=== PATIENT | male | born 1980 | race Caucasian/White ===

== ENCOUNTER 2019-06-13 21:15 | Emergency (ER) | payer OTHER ==
--- NOTE | 2019-06-13 21:49 | ED Physician Documentation ---
PD HPI URI - Stated complaint Stated Complaint: COUGH - Chief complaint Chief Complaint: Resp - History obtained from History obtained from: Patient - History of Present Illness Timing - onset: How many weeks ago (1) Timing details: Gradual onset Pain level now: 0 Associated symptoms: Nasal congestion, Dry cough (mostly dry, occasionally productive). No: Fever Recently seen: Not recently seen - Additional information Additional information: c/o 1 week of cough, nasal congestion. denies shortness of breath, fever. daughter is also registered as ED patient with URI sx Review of Systems Constitutional: denies: Fever, Chills, Sweats Nose: reports: Congestion Throat: denies: Sore throat Respiratory: reports: Cough. denies: Dyspnea, Wheezing PD PAST MEDICAL HISTORY - Past Medical History Past Medical History: Yes Cardiovascular: Hypertension, High cholesterol Respiratory: None Neuro: None Endocrine/Autoimmune: None GI: None : None HEENT: None Psych: None Musculoskeletal: None Derm: None - Past Surgical History Past Surgical History: Yes General: Appendectomy Ortho: Other - Present Medications Home Medications: Ambulatory Orders Medication Instructions Recorded Confirmed No Known Home Medications 06/13/19 06/13/19 - Allergies Allergies/Adverse Reactions: Allergies Allergy/AdvReac Type Severity Reaction Status Date / Time Penicillins Allergy Unknown Verified 06/13/19 21:33 - Social History Does the pt smoke?: Yes Smoking Status: Current every day smoker Does the pt drink ETOH?: Yes Does the pt have substance abuse?: No - Immunizations Immunizations are current?: Yes - POLST Patient has POLST: No PD ED PE NORMAL - Vitals Vital signs reviewed: Yes - General General: Alert and oriented X 3, No acute distress, Well developed/nourished - HEENT HEENT: Ears normal, Moist mucous membranes, Pharynx benign - Neck Neck: Supple, no meningeal sign - Cardiac Cardiac: RRR, No murmur - Respiratory Respiratory: No respiratory distress, Clear bilaterally Results - Vitals Vitals: Oxygen O2 Source Room air PD MEDICAL DECISION MAKING - ED course Complexity details: considered differential, d/w patient ED course: NAD, unremarkable exam with sx s/o URI. no emergent testing nor treatment indicated at this time. Departure - Departure Disposition: Home, Self Care Clinical Impression: Upper respiratory tract infection, Sinusitis Condition: Good Instructions: ED Upper Resp Infec No Abx Tx, ED Sinusitis No Abx Discharge Date/Time: 06/13/19 22:32
[2019-06-13 22:26] VITALS: BP 113/63
== END 2019-06-13 22:32 | disposition home or self-care (01) ==
LOC: ED 21:15
DX: J06.9 Acute upper respiratory infection, unspecified (principal); J32.9 Chronic sinusitis, unspecified; I10 Essential (primary) hypertension; F17.200 Nicotine dependence, unspecified, uncomplicated
CPT/HCPCS: 99281; 99284

== ENCOUNTER 2021-05-05 10:00 | Emergency (ER) | payer OTHER ==
[2021-05-05 10:28] LABS: BASOPHILS # (AUTO) 0.1 10^3/uL (0.0-0.1); BASOPHILS % (AUTO) 0.5 %; EOSINOPHILS # (AUTO) 0.3 10^3/uL (0.0-0.7); EOSINOPHILS % (AUTO) 2.8 %; HCT - HEMATOCRIT 41.7 % (42.0-52.0); HGB - HEMOGLOBIN 15.5 g/dL (14.0-18.0); LYMPHOCYTES % (AUTO) 31.1 %; MEAN CORPUSCULAR HGB CONC 37.2 g/dL (32.0-36.0); MEAN CORPUSCULAR VOLUME 88.9 fL (80.0-94.0); MEAN PLATELET VOLUME 10.8 fL (7.4-11.4); MONOCYTES # (AUTO) 0.7 10^3/uL (0.0-1.0); MONOCYTES % (AUTO) 6.7 %; NEUTROPHILS # (AUTO) 5.7 10^3/uL (1.5-6.6); NEUTROPHILS % (AUTO) 58.6 %; PLT - PLATELET COUNT 244 10^3/uL (130-450); RED BLOOD COUNT 4.69 10^6/uL (4.70-6.10); RED CELL DISTRIBUTION WIDTH 12.4 % (12.0-15.0); WHITE BLOOD COUNT 9.7 x10^3/uL (4.8-10.8)
[2021-05-05 10:45] LABS: ALBUMIN 4.1 g/dL (3.2-5.5); ALBUMIN/GLOBULIN RATIO 1.3 (1.0-2.2); BILIRUBIN,TOTAL 0.7 mg/dL (0.2-1.0); CALCIUM 9.2 mg/dL (8.5-10.3); CREATININE 0.7 mg/dL (0.6-1.2); POTASSIUM 3.8 mmol/L (3.5-5.0); TOTAL PROTEIN 7.2 g/dL (6.7-8.2)
[2021-05-05 10:50] LABS: BILIRUBIN,URINE NEGATIVE (NEGATIVE); GLUCOSE, URINE (UA) NEGATIVE (NEGATIVE); KETONES,URINE (UA) NEGATIVE (NEGATIVE); LEUKOCYTE ESTERASE, URINE NEGATIVE (NEGATIVE); NITRITE,URINE NEGATIVE (NEGATIVE); OCCULT BLOOD,URINE NEGATIVE (NEGATIVE); PROTEIN,URINE NEGATIVE (NEGATIVE); UROBILINOGEN,URINE 0.2 (NORMAL) E.U./dL (NORMAL)
[2021-05-05 10:52] LABS: CLARITY,URINE CLEAR (CLEAR)
[2021-05-05] MEDS ORDERED: HYDROmorphone 1 MG/ML CARPUJECT IVP STA ×2 (10:59→12:15)
--- NOTE | 2021-05-05 11:00 | ED Physician Documentation ---
PD HPI ABD PAIN - Stated complaint Stated Complaint: ABD/BACK PX - Chief complaint Chief Complaint: Abd Pain - History obtained from History obtained from: Patient - Additional information Additional information: 40-year-old gentleman with remote appendectomy has had severe epigastric and right upper quadrant pain radiating to the back for the last 2 days. It worsens after he eats. 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 He drinks alcohol but not daily or heavily. Review of Systems Ten Systems: 10 systems reviewed and negative Constitutional: denies: Fever, Chills Cardiac: reports: Reviewed and negative Respiratory: reports: Reviewed and negative PD PAST MEDICAL HISTORY - Past Medical History Cardiovascular: Hypertension, High cholesterol Respiratory: None Neuro: None Endocrine/Autoimmune: None GI: None : None HEENT: None Psych: None Musculoskeletal: None Derm: None - Past Surgical History Past Surgical History: Yes General: Appendectomy Ortho: Other - Present Medications Home Medications: Ambulatory Orders Medication Instructions Recorded Confirmed Oxycodone HCl/Acetaminophen 1 - 2 each PO Q6H PRN #14 tablet 05/05/21 [Percocet 5-325 mg Tablet] hydroCHLOROthiazide [Hydrodiuril] 12.5 mg PO DAILY #30 05/05/21 - Allergies Allergies/Adverse Reactions: Allergies Allergy/AdvReac Type Severity Reaction Status Date / Time Penicillins Allergy Unknown Verified 05/05/21 10:13 - Social History Does the pt smoke?: Yes Smoking Status: Current every day smoker Does the pt drink ETOH?: Yes Does the pt have substance abuse?: No - Immunizations Immunizations are current?: Yes - POLST Patient has POLST: No PD ED PE NORMAL - Vitals Vital signs reviewed: Yes - General General: Alert and oriented X 3, No acute distress - HEENT HEENT: PERRL, EOMI - Neck Neck: Supple, no meningeal sign, No bony TTP - Cardiac Cardiac: RRR, No murmur - Respiratory Respiratory: No respiratory distress, Clear bilaterally - Abdomen Abdomen: Other (Tender focally in the right upper quadrant with positive Graham sign, no other surgical signs.) - Back Back: No CVA TTP, No spinal TTP - Derm Derm: Normal color, Warm and dry - Extremities Extremities: No edema, No calf tenderness / cord - Neuro Neuro: Alert and oriented X 3, Normal speech Results - Vitals Vitals: Vital Signs - 24 hr 05/05/21 05/05/21 10:09 12:13 Heart Rate 102 H 90 Respiratory 16 18 Rate Blood Pressure 142/85 H 116/78 O2 Saturation 98 99 Oxygen O2 Source Room air - Labs Labs: Laboratory Tests 05/05/21 05/05/21 05/05/21 10:25 10:25 10:43 WBC 9.7 RBC 4.69 L Hgb 15.5 Hct 41.7 L MCV 88.9 MCH 33.0 H MCHC 37.2 H RDW 12.4 Plt Count 244 MPV 10.8 Neut # (Auto) 5.7 Lymph # (Auto) 3.0 Isabella # (Auto) 0.7 Eos # (Auto) 0.3 Baso # (Auto) 0.1 Absolute Nucleated RBC 0.00 Nucleated RBC % 0.0 Sodium 131 L Potassium 3.8 Chloride 95 L Carbon Dioxide 25 Anion Gap 11.0 BUN 11 Creatinine 0.7 Estimated GFR (MDRD) 124 Glucose 125 H Calcium 9.2 Total Bilirubin 0.7 AST 21 ALT 33 Alkaline Phosphatase 83 Total Protein 7.2 Albumin 4.1 Globulin 3.1 Albumin/Globulin Ratio 1.3 Lipase 304 H Urine Color YELLOW Urine Clarity CLEAR Urine pH 6.0 Ur Specific [place] >=1.030 H Urine Protein NEGATIVE Urine Glucose (UA) NEGATIVE Urine Ketones NEGATIVE Urine Occult Blood NEGATIVE Urine Nitrite NEGATIVE Urine Bilirubin NEGATIVE Urine Urobilinogen 0.2 (NORMAL) Ur Leukocyte Esterase NEGATIVE Ur Microscopic Review NOT INDICATED Urine Culture Comments NOT INDICATED - Rads (name of study) ruq sono Radiology: EMP read contemporaneously PD MEDICAL DECISION MAKING - ED course ED course: 40-year-old gentleman with mild pancreatitis. Seems like potentially a biliary issue on initial exam but right upper quadrant ultrasound leading away from that. He says he does not drink alcohol to significance and does not have gallstones and therefore really his only risk factor for recurrent pancreatitis since this is his second episode would be his lisinopril and seems reasonable to change his blood pressure medicine given that lisinopril can cause pancreatitis. He was all but pain-free after 2 rounds of pain medication. Departure - Departure Disposition: 01 Home, Self Care Clinical Impression: Pancreatitis Qualifiers: Chronicity: acute Pancreatitis type: drug induced Acute pancreatitis complication: unspecified Qualified Code(s): K85.30 - Drug induced acute pancreatitis without necrosis or infection Condition: Good Record reviewed to determine appropriate education?: Yes Instructions: ED Pancreatitis Prescriptions: hydroCHLOROthiazide [Hydrodiuril] 12.5 mg PO DAILY #30 Oxycodone HCl/Acetaminophen [Percocet 5-325 mg Tablet] 1 - 2 each PO Q6H PRN #14 tablet PRN Reason: pain Comments: Prescriptions were sent electronically to [facility] in [place]. As discussed you should not drink alcohol for the next week or so and even after that being very careful with alcohol. Also has discussed I am changing your blood pressure medicine as the only other risk factor we can see for pancreatitis is the lisinopril. Stop taking lisinopril. Follow-up with your doctor within the week for recheck, also checking her blood pressure since we are changing her blood pressure meds. Return anytime if worsening. As discussed clear liquid diet for the next 24 hours and then slowly advance back to regular foods. I am prescribing a short course of narcotic pain medication for you. These are potentially dangerous and addictive medications that should be used carefully. These medications may constipate you. Take an itsn-ico-ljeoquq stool softener (docusate) twice daily with plenty of water while taking these medications. If you go 24 hours without a bowel movement, take [id number] miralax, per package instructions. Do not drink or drive while taking these medications. If you received narcotic or sedating medications while in the emergency department, do not drive for 24 hours. Store this medication in a safe, secure place and out of reach of children. It is a violation of federal law to give or sell this medication to another person or to use in a manner other than prescribed. The ED will not refill narcotic prescriptions, including prescriptions lost or stolen. To dispose of unwanted medications: 1. [facility] at [address] in [place] has a medication drop box. They accept prescription medications (in pill form) Friday through Friday 9:00 a.m. to 5:00 p.m. 2. The [facility] accepts prescription medications (in pill form only) for disposal year round. Call for more information. 3. Contact the [facility] for the next [facility] sponsored prescription drug collection event. , [phone], or [phone]; Note that many narcotic pain relievers also contain Tylenol/acetaminophen. Please ensure that your total dose of acetaminophen from all sources does not exceed 3 g (3000 mg) per day.
[2021-05-05] MEDS ORDERED: KETOROLAC 30 MG/ML VIAL IVP STA (12:15)
--- NOTE | 2021-05-05 12:39 | Ultrasound Report ---
PROCEDURE: Abdomen Limited INDICATIONS: RUQ pain TECHNIQUE: Real-time focused scanning was performed of the abdomen, with image documentation. COMPARISON: None FINDINGS: The liver demonstrates enlarged size. The liver demonstrates moderately increased echogen icity, which limits ultrasound sensitivity for detection of masses. No gallstones or sludge can be seen. The gallbladder is mildly thickened at 4 mm. This may be related to the partially contracted state of the gallbladder. There is no specific pericholecystic fluid. The sonographic Graham's sign is negative. No biliary ductal dilatation is seen. The common bile duct measures 3 mm. The pancreas is not well seen on this study. An apparent duplex right renal collecting system can be seen. The visualized right kidney is otherwis e unremarkable. The IVC is patent. IMPRESSION: Mildly thickened gallbladder wall, which is likely artifactual, secondary to gallbladder contraction. No additional sonographic signs of cholecystitis are seen. No biliary dilatation. Enlarged, fatty liver. The pancreas is not well seen. Incidental note is made of: Likely right kidney is duplex collecting system. Note: Concordant preliminary findings given by the blockman upon the completion of the examination to Sloane Howard at 12:20 PM on 05/05/2021. Reviewed by: Jose Martin MD on 05/05/2021 11:38 AM [facility] Approved by: Jose Martin MD on 05/05/2021 11:38 AM [facility] Station ID: [id number]
[2021-05-05 13:23] VITALS: BP 120/83
== END 2021-05-05 13:23 | disposition home or self-care (01) ==
LOC: ED 10:00
DX: K85.30 Drug induced acute pancreatitis without necrosis or infection (principal); T46.4X5A Adverse effect of angiotensin-converting-enzyme inhibitors, initial encounter; Z90.49 Acquired absence of other specified parts of digestive tract; I10 Essential (primary) hypertension; F17.200 Nicotine dependence, unspecified, uncomplicated
CPT/HCPCS: 36415; 76705; 80053; 81003; 83690; 85025; 96374; 96375; 99284; J1170; 81001; 87086

== ENCOUNTER 2021-05-23 07:15 | Inpatient (IN) | payer OTHER ==
--- NOTE | 2021-05-23 07:35 | ED Physician Documentation ---
PD HPI ABD PAIN - Stated complaint Stated Complaint: ABDOMINAL PX - History obtained from History obtained from: Patient - Additional information Additional information: 40-year-old male with known history of hypertension as well as recent evaluation approximately 2 weeks ago for pancreatitis presenting to the emergency department with epigastric abdominal pain radiating into his back. Pain started last night. No associated nausea, vomiting, diarrhea, constipation. Patient reports that the pain is similar to his previous bout of pancreatitis which was initially attributed to his blood pressure medication. States has not been taking his previous blood pressure medication. He did endorse for 4 alcoholic beverages Friday of this week. Past surgical history positive for appendectomy. Patient also reports a vasectomy that was performed on Friday however denies any swelling or pain in his scrotum or associated with his testes. View demonstrates patient recently discontinued off of lisinopril and started on hydrochlorothiazide in order to modify risks for idiopathic pancreatitis. Patient also reports history of 3X episodes of pancreatitis in the past. Review of Systems Ten Systems: 10 systems reviewed and negative Constitutional: denies: Fever Cardiac: denies: Chest pain / pressure GI: reports: Abdominal Pain. denies: Nausea, Vomiting, Constipation : denies: Dysuria PD PAST MEDICAL HISTORY - Past Medical History Cardiovascular: Hypertension, High cholesterol Respiratory: None Neuro: None Endocrine/Autoimmune: None GI: None : None HEENT: None Psych: None Musculoskeletal: None Derm: None - Past Surgical History Past Surgical History: Yes General: Appendectomy Ortho: Other - Present Medications Home Medications: Ambulatory Orders Medication Instructions Recorded Confirmed hydroCHLOROthiazide [Hydrodiuril] 12.5 mg PO DAILY #30 cap 05/05/21 05/23/21 - Allergies Allergies/Adverse Reactions: Allergies Allergy/AdvReac Type Severity Reaction Status Date / Time Penicillins Allergy Unknown Verified 05/23/21 07:31 - Social History Does the pt smoke?: Yes Smoking Status: Current every day smoker Does the pt drink ETOH?: Yes Does the pt have substance abuse?: No - Immunizations Immunizations are current?: Yes - POLST Patient has POLST: No PD ED PE NORMAL - Vitals Vital signs reviewed: Yes - General General: Alert and oriented X 3 - HEENT HEENT: Atraumatic, PERRL - Neck Neck: Supple, no meningeal sign - Cardiac Cardiac: RRR - Respiratory Respiratory: No respiratory distress - Male Male : Deferred - Rectal Rectal: Deferred - Extremities Extremities: No deformity - Neuro Neuro: Alert and oriented X 3, greaser and oiler 2-12 intact - Psych Psych: Normal mood PD ED PE EXPANDED - Abdomen Abdomen: Tender to palpation, Epigastric Results - Vitals Vitals: Vital Signs - 24 hr 05/23/21 05/23/21 05/23/21 07:23 07:52 11:06 Temperature 36.2 C L Heart Rate 71 70 78 Respiratory 20 20 Rate Blood Pressure 146/100 H 146/100 H O2 Saturation 96 96 98 05/23/21 11:08 Temperature Heart Rate Respiratory Rate Blood Pressure 134/78 H O2 Saturation Oxygen O2 Source Room air - EKG (time done) 0747 Rate: Rate (enter#) (67) Rhythm: NSR [place]: Normal Intervals: Normal NM. No: Prolonged QT QRS: Normal Ischemia: Normal ST segments. No: Hyperacute T waves Computer interpretation: Agree with computer - Labs Labs: Laboratory Tests 05/23/21 05/23/21 05/23/21 07:41 07:41 07:41 WBC 8.3 RBC 4.71 Hgb 14.7 Hct 41.8 L MCV 88.7 MCH 31.2 H MCHC 35.2 RDW 12.2 Plt Count 254 MPV 11.6 H Neut # (Auto) 4.6 Lymph # (Auto) 2.9 [place] # (Auto) 0.6 Eos # (Auto) 0.2 Baso # (Auto) 0.0 Absolute Nucleated RBC 0.02 Nucleated RBC % 0.2 Sodium 132 L Potassium 4.0 Chloride 100 L Carbon Dioxide 22 Anion Gap 10.0 BUN 10 Creatinine 0.6 Estimated GFR (MDRD) 148 Glucose 152 H Calcium 8.9 Total Bilirubin 0.9 AST 25 ALT 24 Alkaline Phosphatase 69 Troponin I High Sens 3.2 Total Protein 6.3 L Albumin 4.0 Globulin 2.3 Albumin/Globulin Ratio 1.7 Triglycerides LDL Cholesterol Direct dLDL/HDL Ratio Lipase 616 H Ethyl Alcohol < 5.0 05/23/21 07:41 WBC RBC Hgb Hct MCV MCH MCHC RDW Plt Count MPV Neut # (Auto) Lymph # (Auto) [place] # (Auto) Eos # (Auto) Baso # (Auto) Absolute Nucleated RBC Nucleated RBC % Sodium Potassium Chloride Carbon Dioxide Anion Gap BUN Creatinine Estimated GFR (MDRD) Glucose Calcium Total Bilirubin AST ALT Alkaline Phosphatase Troponin I High Sens Total Protein Albumin Globulin Albumin/Globulin Ratio Triglycerides > 2000 H LDL Cholesterol Direct 21 dLDL/HDL Ratio Not Reportable Lipase Ethyl Alcohol PD MEDICAL DECISION MAKING - ED course Complexity details: reviewed old records, reviewed results, re-evaluated miladys chong, considered differential, d/w patient, d/w homemaking rehabilitation consultant ED course: Patient is a 40-year-old male presenting to the emergency department with epigastric abdominal pain. Is seen here recently in May 05, diagnosed with acute pancreatitis at that time. Ultrasonography of the right upper quadrant was largely benign at that time and he was transition from lisinopril to hydrochlorothiazide in order to decrease risk for medication induced pancreatitis. He returns to the emergency department with 1-2 days of Similar pain however reports pain is of greater severity on this visit. Patient significantly distressed on arrival to the emergency department. IV access was obtained and he was given medication for pain control. Comprehensive labs demonstrated a worsening elevated lipase. Lab reported severe lipoma knee Gabi and his blood work and I did order for a fatty acid panel which demonstrated a severe Per triglyceridemia. Upon requestioning patient reports that he has never had cholesterol checked in the past however he does report that his father had a somewhat nonspecific history of high cholesterol. Given that this was representation after only a few weeks I did elect to obtain imaging of the abdomen and pelvis to evaluate for any pancreatic necrosis or pseudocyst. CT abdomen pelvis was obtained which demonstrated fat stranding around the pancreas without other complication. I did initially attempt to consult with an electrical software engineer however despite multiple attempts at contacting endocrinology at both [facility] and [place], no one was able to return our phone calls. Patient however remained in significant distress in the emergency department requiring multiple doses of IV pain medication. Failed a p.o. trial while in the emergency department. I did discuss his care directly with the hospitalist service and in consultation with the hospitalist service initiated insulin infusion with continuous maintenance D5 normal saline. At this time patient will be hospitalized for further evaluation and treatment. Departure - Departure Disposition: 66 [facility] DC/Xfer Clinical Impression: Acute pancreatitis without necrosis or infection, unspecified, Hypertriglyceridemia Condition: Serious
[2021-05-23] MEDS ORDERED: MORPHINE 2 MG/ML CARPUJECT IVP STA (07:36)
[2021-05-23] MEDS ORDERED: ONDANSETRON 4 MG/2 ML VIAL IVP STA (07:36)
[2021-05-23] MEDS ORDERED: SODIUM CHLORIDE 0.9% 1,000 ML IV STA (07:36)
[2021-05-23 08:05] LABS: BASOPHILS % (AUTO) 0.5 %; EOSINOPHILS # (AUTO) 0.2 10^3/uL (0.0-0.7); EOSINOPHILS % (AUTO) 2.8 %; HCT - HEMATOCRIT 41.8 % (42.0-52.0); HGB - HEMOGLOBIN 14.7 g/dL (14.0-18.0); LYMPHOCYTES # (AUTO) 2.9 10^3/uL (1.5-3.5); LYMPHOCYTES % (AUTO) 34.7 %; MEAN CORPUSCULAR VOLUME 88.7 fL (80.0-94.0); MEAN PLATELET VOLUME 11.6 fL (7.4-11.4); MONOCYTES # (AUTO) 0.6 10^3/uL (0.0-1.0); MONOCYTES % (AUTO) 6.7 %; NEUTROPHILS # (AUTO) 4.6 10^3/uL (1.5-6.6); NEUTROPHILS % (AUTO) 54.9 %; NRBC ABSOLUTE COUNT (AUTO) 0.02 x10^3/uL; NUCLEATED RED BLOOD CELLS AUTO 0.2 /100WBC; PLT - PLATELET COUNT 254 10^3/uL (130-450); RED BLOOD COUNT 4.71 10^6/uL (4.70-6.10); RED CELL DISTRIBUTION WIDTH 12.2 % (12.0-15.0); WHITE BLOOD COUNT 8.3 x10^3/uL (4.8-10.8)
[2021-05-23] MEDS ORDERED: IOPAMIDOL-300 100 ML VIAL ONE (08:08)
[2021-05-23 08:12] LABS: MEAN CORPUSCULAR HEMOGLOBIN 31.2 pg (27.0-31.0); MEAN CORPUSCULAR HGB CONC 35.2 g/dL (32.0-36.0)
[2021-05-23] MEDS ORDERED: HYDROmorphone 1 MG/ML CARPUJECT IVP STA ×2 (08:34→09:32)
[2021-05-23 08:42] LABS: ALBUMIN/GLOBULIN RATIO 1.7 (1.0-2.2); ALKALINE PHOSPHATASE 69 IU/L (42-121); ALT ALANINE AMINOTRANSFERASE 24 IU/L (10-60); AST ASPARTATE AMINOTRANSFERASE 25 IU/L (10-42); BILIRUBIN,TOTAL 0.9 mg/dL (0.2-1.0); BUN - BLOOD UREA NITROGEN 10 mg/dL (6-20); CALCIUM 8.9 mg/dL (8.5-10.3); CARBON DIOXIDE - CO2 22 mmol/L (21-32); CHLORIDE 100 mmol/L (101-111); CREATININE 0.6 mg/dL (0.6-1.2); ETOH - ETHANOL < 5.0 mg/dL; GFR - MDRD 148 (>89); GLUCOSE 152 mg/dL (70-100); LIPASE 616 U/L (22-51); SODIUM 132 mmol/L (135-145); TOTAL PROTEIN 6.3 g/dL (6.7-8.2)
[2021-05-23 09:20] LABS: TRIGLYCERIDES > 2000 mg/dL
--- NOTE | 2021-05-23 09:21 | CT Report ---
PROCEDURE: Abdomen/Pelvis W INDICATIONS: Abd pain CONTRAST: IV CONTRAST: Isovue 300 ml: 100 PO CONTRAST: *NO PO CONTRAST TECHNIQUE: After the administration of intermedius contrast, 5 mm thick sections acquired from the diaphragms to the symphysis. 5 mm thick coronal and sagittal reformats were acquired. For radiation dose reducti on, the following was used: automated exposure control, adjustment of mA and/or kV according to mehdi ent size. COMPARISON: Ultrasound abdomen, 05/05/2021. FINDINGS: Image quality: Excellent. ABDOMEN: Lung bases: Lung bases are clear. Heart size is normal. Solid organs: Liver is normal in size. Mild hepatic steatosis. Gallbladder is normal. Biliary syst em is non dilated. Spleen is normal in size and enhancement. Subtle stranding of pancreas compatible with pancreatitis. No CT findings for pancreatic necrosis. No perihepatic pseudocyst, or calcification. Pancreatic duct is not dilated. No adrenal nodules. Kidneys demonstrate normal size and enhancement, without hydronephrosis. Peritoneum and bowel: Bowel loops demonstrate normal wall thickness and caliber. No free fluid or a ir. Nodes and vessels: No retroperitoneal or mesenteric adenopathy by size criteria. Aorta and inferior vena cava are normal in size. Miscellaneous: No ventral hernias. PELVIS: Genitourinary: Bladder wall thickness is normal. Miscellaneous: No inguinal hernias or adenopathy. Bones: No suspicious bony lesions. No vertebral body compression fractures. IMPRESSION: 1. Mild pancreatic stranding consistent with pancreatitis. No CT findings to suggest pancreatic necro sis. No pancreatic pseudocysts or calcification. 2. Mild hepatic steatosis. Reviewed by: Pily Coronel MD on 05/23/2021 9:20 AM PST Approved by: Pily Coronel MD on 05/23/2021 9:20 AM PST Station ID: [id number]
[2021-05-23] MEDS ORDERED: IOPAMIDOL-300 100 ML VIAL IVP ONE (09:27)
[2021-05-23 09:45] LABS: LDL CHOLESTEROL,DIRECT 21 mg/dL
[2021-05-23] MEDS ORDERED: oxyCODONE 5 MG TABLET PO STA (10:59)
[2021-05-23] MEDS ORDERED: INSULIN REGULAR HUMAN 100 UNIT in SODIUM CHLORIDE 0.9% 100ML 99 ML IV ONE (12:32)
[2021-05-23] MEDS ORDERED: DEXTROSE 5%-0.9% NACL 1,000 ML IV STA (12:36)
--- NOTE | 2021-05-23 12:52 | HISTORY & PHYSICAL EXAMINATION ---
Chief Complaint - Chief Complaint Chief Complaint: abdominal pain History of Present Illness - Admitted From Admitted From:: [facility] ED - History Obtained From Records Reviewed: yes History obtained from: patient - History of Present Illness HPI Comment/Other: Patient is a 40-year-old male who presented to the ED with complaint of generalized abdominal pain and back pain. He woke up around 5 AM with sharp abdominal pain for which he took a tablet of oxycodone. When there was no change in about 45 minutes he was brought to the ED by his . He last ate tequidos and chips for dinner. He denied chest pain, dyspnea, fever or chills. He has been nauseous but no vomiting. Work-up in the ED included a lipase level which was 616. A lipid panel also showed a triglyceride level greater than 2000. CT of the abdomen showed mild pancreatic stranding consistent with pancreatitis.He was diagnosed with pancreatitis and presented for admission for further management. This is his fourth episode of pancreatitis. The first time he was told it was due to alcohol consumption, the second time due to his diet, the third time it was thought to be secondary to his antihypertensive medication. His father also has history of pancreatitis due to hypertriglyceridemia. History - Past Medical History Cardiovascular: reports: Hypertension, High cholesterol Respiratory: reports: None Neuro: reports: None Endocrine/Autoimmune: reports: None GI: reports: None : reports: None HEENT: reports: None Psych: reports: None Musculoskeletal: reports: None Derm: reports: None MRSA Hx?: No - Past Surgical History General: reports: Appendectomy Ortho: reports: Other /[employer]: reports: Other (Vasectomy) - Family & Social History Family History Comment/Other: Father has history of pancreatitis with hypertri glyceridemia. Social History Notes: Patient consumes alcohol occasionally. He reports once to twice weekly. He smokes about half a pack of cigarettes daily. He denies any r ecreational substance use. He lives at home with his and 2 daughters. He is in the . - POLST Patient has POLST: No POLST Status: Full Code Meds/Allgy - Home Medications Home Medications: Ambulatory Orders Medication Instructions Recorded Confirmed hydroCHLOROthiazide [Hydrodiuril] 12.5 mg PO DAILY #30 cap 05/05/21 05/23/21 - Allergies Allergies/Adverse Reactions: Allergies Allergy/AdvReac Type Severity Reaction Status Date / Time Penicillins Allergy Unknown Verified 05/23/21 07:31 Review of Systems - Constitutional Constitutional: denies: Fatigue, Fever, Chills - Eyes Eyes: denies: Pain - Ears, Nose & Throat Ears, Nose & Throat: denies: Ear pain, Sore throat - Cardiovascular Cariovascular: denies: Irregular heart rate, Palpitations, Chest pain, Edema, Lightheadedness, Syncope - Respiratory Respiratory: denies: Cough, Sputum production, Wheezing, Snoring, SOB at rest, SOB with exertion - Gastrointestinal Gastrointestinal: reports: Abdominal pain, Nausea. denies: Abdominal distention, Constipation, Vomiting, Coffee grounds emesis, Reflux/heartburn - Genitourinary Genitourinary: denies: Dysuria, Frequency, Urgency, Hematuria - Musculoskeletal Musculoskeletal: reports: Back pain. denies: Muscle pain, Stiffness, Limited range of motion - Integumentary Integumentary: denies: Rash, Pruritis, Lesions, Dryness - Neurological Neurological: denies: General weakness, Focal weakness, Headache, Dizziness - Psychiatric Psychiatric: denies: Depression, Anxiety - Endocrine Endocrine: denies: Polyuria, Polydypsia - Hematologic/Lymphatic Hematologic/Lymphatic: denies: Anemia, Bruising Prior Level of Functionality: Patient is independent of activities of daily living. Exam - Vital Signs Vital Signs: Vital Signs x48h Temp Pulse Resp BP Pulse Ox 05/23/21 11:08 134/78 H 05/23/21 11:06 78 98 05/23/21 07:52 70 20 146/100 H 96 05/23/21 07:23 36.2 C L 71 20 146/100 H 96 - Physical Exam General Appearance: positive: Alert, Moderate distress, Severe distress Eyes Bilateral: positive: PERRL, EOMI ENT: positive: No signs of dehydration Neck: positive: No JVD, Trachea midline Respiratory: positive: Chest non-tender, No respiratory distress, Breath sounds nml. negative: Wheezes, Rales, Rhonchi Cardiovascular: positive: Regular rate & rhythm, No murmur Abdomen: positive: Tenderness (Generalized), Guarding, Rebound Skin: positive: Color nml, No rash, Warm, Dry. negative: Cyanosis Extremities: positive: Non-tender, Full ROM, Nml appearance, No pedal edema Neurologic/Psychiatric: positive: Oriented x3, Mood/affect nml Conclusion/Plan - Problem List (1) Pancreatitis Conclusion/Plan: Secondary to hypertriglyceridemia. Patient's triglycerides were greater than 2000. Lipase was 616. CT of the abdomen pelvis showed peripancreatic stranding consistent with acute pancreatitis. There was no necrosis. Patient n.p.o. except for meds, ice chips and sips. Patient was started on an insulin drip at 5 units/h. Patient is also on D5 plus half normal saline +20 mEq of potassium at 125 mL/h. We will check BMP every 4 hours to monitor potassium and Accu-Cheks every 2 hours. We will repeat lipid panel and lipase level in the morning. Patient will need to follow-up with endocrinology in the outpatient setting for further management of his triglyceride levels. Qualifiers: Chronicity: acute Pancreatitis type: drug induced Acute pancreatitis complication: unspecified Qualified Code(s): K85.30 - Drug induced acute pancreatitis without necrosis or infection (2) Hypertriglyceridemia Conclusion/Plan: Currently on insulin drip with D5 plus half normal saline +20 mg of potassium. We will repeat lipid panel in the morning. Patient would need to follow-up with endocrinology in the outpatient setting. He has a family history of familial hypertriglyceridemia. His father has had multiple bouts of pancreatitis secondary to elevated triglyceride levels. (3) Hypertension Conclusion/Plan: Currently normotensive. We will order a as needed medication if and when indicated. - Lab Results Fish Bones: 05/23/21 07:41 05/23/21 13:59 Core Measures - Anticipated LOS I expect patient to be DC'd or transferred within 96 hours.: Yes - DVT/VTE - Prophylaxis VTE/DVT Device ordered at admit?: Yes
[2021-05-23] MEDS ORDERED: DEXTROSE 5%-0.9% NACL 1,000 ML IV SCH (13:00)
[2021-05-23] MEDS: ACETAMINOPHEN 325 MG TABLET PO PRN ×2 (13:02→19:17)
[2021-05-23] MEDS: HYDROmorphone 1 MG/ML CARPUJECT IVP PRN ×6 (13:03→23:46)
[2021-05-23 13:45] LABS: B. PARAPERTUSSIS- RESP PCR PAN NOT DETECTED; B. PERTUSSIS- RESP PCR PANEL NOT DETECTED; C. PNEUMONIAE- RESP PCR PANEL NOT DETECTED; CORONAVIRUS 229E-RESP PCR NOT DETECTED; CORONAVIRUS HKU1-RESP PCR NOT DETECTED; CORONAVIRUS NL63-RESP PCR NOT DETECTED; CORONAVIRUS OC43-RESP PCR NOT DETECTED; HUMAN METAPNEUMOVIRUS NOT DETECTED; INFLUENZA A- RESP PCR PANEL NOT DETECTED; INFLUENZA B - RESP PCR PANEL NOT DETECTED; M. PNEUMONIAE- RESP PCR PANEL NOT DETECTED; PARAINFLUENZA VIRUS 1 NOT DETECTED; PARAINFLUENZA VIRUS 2 NOT DETECTED; PARAINFLUENZA VIRUS 3 NOT DETECTED; PARAINFLUENZA VIRUS 4 NOT DETECTED; RHINOVIRUS/ENTEROVIRUS NOT DETECTED; RSV- RESP PCR PANEL NOT DETECTED; SARS-CoV-2 -RESP PCR PANEL NOT DETECTED
[2021-05-23] MEDS: INSULIN REGULAR HUMAN 100 UNIT in SODIUM CHLORIDE 0.9% 100ML 99 ML IV ONE ×2 (14:10→17:00)
[2021-05-23 14:17] LABS: CALCIUM 8.6 mg/dL (8.5-10.3); CREATININE 0.6 mg/dL (0.6-1.2); POTASSIUM 3.4 mmol/L (3.5-5.0)
[2021-05-23] MEDS ORDERED: HYDROmorphone 0.5 MG/0.5 ML SYRINGE IVP STA (15:01)
[2021-05-23] MEDS ORDERED: POTASSIUM CHLORIDE 20 MEQ TABLET PO STA (15:14)
[2021-05-23] MEDS: oxyCODONE 5 MG TABLET PO PRN ×3 (15:21→23:44)
[2021-05-23] MEDS: D5.45NS W/20 MEQ KCL 1,000 ML IV SCH (16:39)
[2021-05-23] MEDS: SODIUM CHLORIDE FLUSH 0.9% 10 ML SYRINGE IVP SCH (17:25)
[2021-05-23 18:18] LABS: CALCIUM 8.4 mg/dL (8.5-10.3); CREATININE 0.5 mg/dL (0.6-1.2); POTASSIUM 3.5 mmol/L (3.5-5.0)
[2021-05-23] MEDS: SODIUM CHLORIDE FLUSH 0.9% 10 ML SYRINGE IVP PRN ×2 (18:22→19:19)
[2021-05-23 22:11] LABS: VBG PH 7.44 (7.31-7.41)
[2021-05-23 22:12] LABS: CALCIUM, IONIZED 1.09 mmol/L (1.15-1.33)
[2021-05-23 22:17] LABS: CALCIUM 8.6 mg/dL (8.5-10.3); CREATININE 0.5 mg/dL (0.6-1.2); POTASSIUM 3.5 mmol/L (3.5-5.0)
[2021-05-24] MEDS: D5.45NS W/20 MEQ KCL 1,000 ML IV SCH ×4 (00:23→21:32)
[2021-05-24] MEDS: HYDROmorphone 1 MG/ML CARPUJECT IVP PRN ×14 (01:03→23:26)
[2021-05-24 02:06] LABS: CALCIUM 8.4 mg/dL (8.5-10.3); CREATININE 0.5 mg/dL (0.6-1.2); POTASSIUM 3.5 mmol/L (3.5-5.0)
[2021-05-24] MEDS: oxyCODONE 5 MG TABLET PO PRN ×2 (04:05→18:20)
[2021-05-24 05:22] LABS: CREATININE 0.6 mg/dL (0.6-1.2); POTASSIUM 3.5 mmol/L (3.5-5.0)
[2021-05-24 05:23] LABS: ALBUMIN 3.6 g/dL (3.2-5.5); ALBUMIN/GLOBULIN RATIO 1.2 (1.0-2.2); BILIRUBIN,TOTAL 1.2 mg/dL (0.2-1.0); CALCIUM 8.5 mg/dL (8.5-10.3); TOTAL PROTEIN 6.5 g/dL (6.7-8.2)
[2021-05-24 06:36] LABS: MAGNESIUM 1.7 mg/dL (1.7-2.8); PHOSPHORUS 3.7 mg/dL (2.5-4.6); TRIGLYCERIDES 755 mg/dL
[2021-05-24 06:37] LABS: CHOL/HDL RATIO 8.7 (<5.0); CHOLESTEROL 208 mg/dL; HDL CHOLESTEROL 24 mg/dL
[2021-05-24 06:39] LABS: LDL CHOLESTEROL,DIRECT 36 mg/dL; LDLD/HDL RATIO 1.5 (<3.6)
[2021-05-24] MEDS: PANTOPRAZOLE 40 MG TABLET PO SCH (06:44)
[2021-05-24] MEDS: SODIUM CHLORIDE FLUSH 0.9% 10 ML SYRINGE IVP SCH ×5 (06:45→23:26)
[2021-05-24] MEDS ORDERED: POTASSIUM CHLORIDE 20 MEQ TABLET PO ONE (07:43)
--- NOTE | 2021-05-24 07:48 | PROVIDER PROGRESS NOTE ---
Assessment/Plan - Problem List (1) Pancreatitis Qualifiers: Chronicity: acute Pancreatitis type: drug induced Acute pancreatitis complication: unspecified Qualified Code(s): K85.30 - Drug induced acute pancreatitis without necrosis or infection Assessment/Plan: Secondary to hypertriglyceridemia. Triglycerides improved from greater than 2000 down to 755. We will continue insulin drip and D5 plus half normal saline +20 mEq of potassium at 150 mL/h. Continue Accu-Cheks every 2 hours. Lipase level improved from 616 down to 134. Slight improvement in patient's pain. Continue Dilaudid, oxycodone and morphine as needed for pain. (2) Hypertriglyceridemia Assessment/Plan: Lipid Panel showed Triglyceride 755, cholesterol 208, LDL 36 HDL 24 We will plan to place patient on omega-3, Lopid 600 mg p.o. 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 We will order a as needed medication if and when indicated. (4) Leukocytosis Assessment/Plan: Likely reactive. WBC was 13.3 Will monitor closely. - Current Meds Current Meds: Current Medications Generic Name Dose Route Start Last Admin Trade Name Freq PRN Reason Stop Dose Admin Acetaminophen 650 mg 05/23/21 12:38 05/23/21 19:17 Acetaminophen 325 Mg Tablet PO 650 mg Q4HR PRN Administration Pain 1 to 4 Hydromorphone HCl 1 mg 05/23/21 21:55 05/24/21 06:45 Hydromorphone 1 Mg/Ml Carpuject IVP 1 mg Q1H PRN Administration Pain 8 to 10 Insulin Human Regular 100 unit 100 mls @ 5 mls/hr 05/23/21 12:45 05/23/21 17:00 / Sodium Chloride IV 05/24/21 08:44 5 unit/hr .Q20H ONE 5 mls/hr Administration Protocol 5 UNIT/HR Oxycodone HCl 5 mg 05/23/21 12:38 05/24/21 04:05 Oxycodone 5 Mg Tablet PO 5 mg Q4HR PRN Administration Pain 5 to 7 Pantoprazole Sodium 40 mg 05/24/21 07:00 05/24/21 06:44 Pantoprazole 40 Mg Tablet PO 40 mg QDAC TRISHA Administration Sodium Chloride 10 ml 05/23/21 17:00 05/24/21 06:45 Sodium Chloride Flush 0.9% 10 Ml Syringe IVP 10 ml 0100,0900,1700 TRISHA Administration Sodium Chloride 10 ml 05/23/21 12:38 05/23/21 19:19 Sodium Chloride Flush 0.9% 10 Ml Syringe IVP 10 ml PRN PRN Administration NEEDED PER PROVIDER ORDERS - Lab Result Fish Bone Diagrams: 05/24/21 04:30 05/24/21 04:30 - Additional Planning My Orders: My Active Orders 05/23/21 12:38 Acetaminophen [Tylenol] 650 mg PO Q4HR PRN Ondansetron Inj [Zofran Inj] 4 mg IVP Q6HR PRN Sodium Chloride Flush 0.9% [Normal Saline Flush 0.9%] 10 ml IVP PRN PRN oxyCODONE [Roxicodone] 5 mg PO Q4HR PRN 05/23/21 12:39 Activity Orders [RC] Q2HR Daily Weight [RC] 0600 IO [RC] Q1HR Initiate Bowel Care Protocol [RC] QSHIFT Initiate Flu Vaccine Screening [RC] ONCE Initiate ICU Electrolyte Prot. [RC] .protocol Initiate Line Care Protocol [RC] .protocol Initiate Personal Care Protoco [RC] .protocol Initiate Pneumonia Vaccine Scr [RC] ONCE Code Status [OTHERS] Routine Condition of Patient [OTHERS] Routine DVT Prophylaxis [OTHERS] Routine 05/23/21 12:41 Telemetry- [RC] Q4HR NPO except Meds [DIET] 05/23/21 12:42 Oxygen Therapy [RC] .PRN SCDs [RC] QSHIFT 05/23/21 12:45 Sodium Chloride 0.9% 100Ml [Normal Saline 0.9% 100Ml] 99 ml Insulin Regular Human [NovoLIN R] 100 unit IV 5 unit/hr 05/23/21 12:46 Accucheck [Blood Glucose POC] [RC] Q2HR 05/23/21 17:00 Sodium Chloride Flush 0.9% [Normal Saline Flush 0.9%] 10 ml IVP 0100,0900,1700 05/24/21 04:30 CBC - COMP BLD CT W/AUTO DIFF [HEME] DAILYLAB 05/24/21 07:00 Pantoprazole [Protonix] 40 mg PO QDAC 05/24/21 07:47 D5.45ns W/20 Meq KCl 1,000 ml IV 150 mls/hr 05/25/21 05:00 BMP - BASIC METABOLIC PANEL [CHEM] DAILYLAB CBC - COMP BLD CT W/AUTO DIFF [HEME] DAILYLAB LIPASE [CHEM] DAILYLAB LIPID Panel [CHEM] DAILYLAB 05/26/21 05:00 BMP - BASIC METABOLIC PANEL [CHEM] DAILYLAB CBC - COMP BLD CT W/AUTO DIFF [HEME] DAILYLAB LIPASE [CHEM] DAILYLAB 05/27/21 05:00 BMP - BASIC METABOLIC PANEL [CHEM] DAILYLAB CBC - COMP BLD CT W/AUTO DIFF [HEME] DAILYLAB 05/28/21 05:00 BMP - BASIC METABOLIC PANEL [CHEM] DAILYLAB CBC - COMP BLD CT W/AUTO DIFF [HEME] DAILYLAB 05/29/21 05:00 BMP - BASIC METABOLIC PANEL [CHEM] DAILYLAB CBC - COMP BLD CT W/AUTO DIFF [HEME] DAILYLAB Subjective - Subjective Patient Reports: Other (Patient complains of abdominal pain. He rates it 8 out of 10. Slight improvement from the previous day. He denies any other complaints.) Objective Vital Signs: Vital Signs - 24 hr 05/23/21 05/23/21 05/23/21 07:52 11:06 11:08 Temperature Heart Rate 70 78 Heart Rate [ Monitoring electrodes] Respiratory 20 Rate Blood Pressure 146/100 H 134/78 H Blood Pressure [Left Brachial artery] O2 Saturation 96 98 05/23/21 05/23/21 05/23/21 13:28 20:00 21:00 Temperature 37 C 36.7 C Heart Rate 77 Heart Rate [ 98 100 Monitoring electrodes] Respiratory 18 16 16 Rate Blood Pressure 127/73 Blood Pressure 128/77 125/84 H [Left Brachial artery] O2 Saturation 89 L 94 95 05/23/21 05/23/21 05/24/21 22:00 23:00 00:00 Temperature 36.6 C Heart Rate Heart Rate [ 103 H 103 H 103 H Monitoring electrodes] Respiratory 13 17 15 Rate Blood Pressure Blood Pressure 110/81 H 116/73 119/78 [Left Brachial artery] O2 Saturation 96 93 95 05/24/21 05/24/21 05/24/21 01:56 04:00 05:00 Temperature 36.8 C Heart Rate Heart Rate [ 99 102 H 103 H Monitoring electrodes] Respiratory 14 14 14 Rate Blood Pressure Blood Pressure 85/76 L 107/63 117/81 H [Left Brachial artery] O2 Saturation 95 94 93 05/24/21 05/24/21 06:00 06:51 Temperature Heart Rate Heart Rate [ 100 96 Monitoring electrodes] Respiratory 14 13 Rate Blood Pressure Blood Pressure 124/77 123/75 [Left Brachial artery] O2 Saturation 93 96 Oxygen O2 Source Nasal cannula I&O (Last 24 Hrs): Intake and Output Totals x24h 05/22/21 05/23/21 05/24/21 23:59 23:59 23:59 Intake Total 1813.333 958.333 Output Total 250 900 Balance 1563.333 58.333 General: Alert, Oriented x3, Moderate distress HEENT: PERRLA, EOMI Neck: Supple, No JVD Neuro: Alert, Non Focal, Oriented Times 3 Cardiovascular: Regular rate, No murmurs Respiratory: Chest non-tender, No respiratory distress Abdomen: Normal bowel sounds, Soft, Other (Tender to palpation in all quadrants.) Extremities: No clubbing, No cyanosis, No edema, No tenderness/swelling Skin: No rashes, No breakdown, No significant lesion - Results Results: Laboratory Results WBC 8.3 x10^3/uL (4.8-10.8) 05/23/21 07:41 RBC 4.71 10^6/uL (4.70-6.10) 05/23/21 07:41 Hgb 14.7 g/dL (14.0-18.0) 05/23/21 07:41 Hct 41.8 % (42.0-52.0) L 05/23/21 07:41 MCV 88.7 fL (80.0-94.0) 05/23/21 07:41 MCH 31.2 pg (27.0-31.0) H 05/23/21 07:41 MCHC 35.2 g/dL (32.0-36.0) 05/23/21 07:41 RDW 12.2 % (12.0-15.0) 05/23/21 07:41 Plt Count 254 10^3/uL (130-450) 05/23/21 07:41 MPV 11.6 fL (7.4-11.4) H 05/23/21 07:41 Neut # (Auto) 4.6 10^3/uL (1.5-6.6) 05/23/21 07:41 Lymph # (Auto) 2.9 10^3/uL (1.5-3.5) 05/23/21 07:41 Walker # (Auto) 0.6 10^3/uL (0.0-1.0) 05/23/21 07:41 Eos # (Auto) 0.2 10^3/uL (0.0-0.7) 05/23/21 07:41 Baso # (Auto) 0.0 10^3/uL (0.0-0.1) 05/23/21 07:41 Absolute Nucleated RBC 0.02 x10^3/uL 05/23/21 07:41 Nucleated RBC % 0.2 /100WBC 05/23/21 07:41 VBG pH 7.440 (7.31-7.41) H 05/23/21 21:59 Ionized Calcium 1.09 mmol/L (1.15-1.33) L 05/23/21 21:59 Sodium 133 mmol/L (135-145) L 05/24/21 04:30 Potassium 3.5 mmol/L (3.5-5.0) 05/24/21 04:30 Chloride 98 mmol/L (101-111) L 05/24/21 04:30 Carbon Dioxide 26 mmol/L (21-32) 05/24/21 04:30 Anion Gap 9.0 (6-13) 05/24/21 04:30 BUN 5 mg/dL (6-20) L 05/24/21 04:30 Creatinine 0.6 mg/dL (0.6-1.2) 05/24/21 04:30 Estimated GFR (MDRD) 148 (>89) 05/24/21 04:30 Glucose 87 mg/dL (70-100) 05/24/21 04:30 POC Whole Bld Glucose 90 mg/dL (70 - 100) 05/24/21 07:28 Calcium 8.5 mg/dL (8.5-10.3) 05/24/21 04:30 Phosphorus 3.7 mg/dL (2.5-4.6) 05/24/21 04:30 Magnesium 1.7 mg/dL (1.7-2.8) 05/24/21 04:30 Total Bilirubin 1.2 mg/dL (0.2-1.0) H 05/24/21 04:30 AST 16 IU/L (10-42) 05/24/21 04:30 ALT 20 IU/L (10-60) 05/24/21 04:30 Alkaline Phosphatase 55 IU/L (42-121) 05/24/21 04:30 Troponin I High Sens 3.2 ng/L (2.3-19.7) 05/23/21 07:41 Total Protein 6.5 g/dL (6.7-8.2) L 05/24/21 04:30 Albumin 3.6 g/dL (3.2-5.5) 05/24/21 04:30 Globulin 2.9 g/dL (2.1-4.2) 05/24/21 04:30 Albumin/Globulin Ratio 1.2 (1.0-2.2) 05/24/21 04:30 Triglycerides 755 mg/dL (-149) H 05/24/21 04:30 Cholesterol 208 mg/dL (-199) H 05/24/21 04:30 LDL Cholesterol Direct 36 mg/dL (-129) 05/24/21 04:30 LDL Cholesterol, Calc Not Reportable 05/24/21 04:30 VLDL Cholesterol Not Reportable 05/24/21 04:30 HDL Cholesterol 24 mg/dL (60-) L 05/24/21 04:30 LDL/HDL Ratio Not Reportable 05/24/21 04:30 dLDL/HDL Ratio 1.5 (<3.6) 05/24/21 04:30 Cholesterol/HDL Ratio 8.7 (<5.0) 05/24/21 04:30 Lipase 134 U/L (22-51) H 05/24/21 04:30 Nasal Adenovirus (PCR) NOT DETECTED 05/23/21 12:48 Nasal B. parapertussis DNA (PCR) NOT DETECTED 05/23/21 12:48 Nasal Coronavir 229E PCR NOT DETECTED 05/23/21 12:48 Nasal Coronavir HKU1 PCR NOT DETECTED 05/23/21 12:48 Nasal Coronavir NL63 PCR NOT DETECTED 05/23/21 12:48 Nasal Coronavir OC43 PCR NOT DETECTED 05/23/21 12:48 Nasal Enterovir/Rhinovir PCR NOT DETECTED 05/23/21 12:48 Nasal Influenza B PCR NOT DETECTED 05/23/21 12:48 Nasal Influenza A PCR NOT DETECTED 05/23/21 12:48 Nasal Parainfluen 1 PCR NOT DETECTED 05/23/21 12:48 Nasal Parainfluen 2 PCR NOT DETECTED 05/23/21 12:48 Nasal Parainfluen 3 PCR NOT DETECTED 05/23/21 12:48 Nasal Parainfluen 4 PCR NOT DETECTED 05/23/21 12:48 Nasal RSV (PCR) NOT DETECTED 05/23/21 12:48 Nasal Screen MRSA (PCR) NEGATIVE (NEGATIVE) 05/23/21 18:00 Nasal B.pertussis DNA PCR NOT DETECTED 05/23/21 12:48 Nasal C.pneumoniae (PCR) NOT DETECTED 05/23/21 12:48 Tulio Human Metapneumo PCR NOT DETECTED 05/23/21 12:48 Nasal M.pneumoniae (PCR) NOT DETECTED 05/23/21 12:48 Nasal SARS-CoV-2 (PCR) NOT DETECTED 05/23/21 12:48 Ethyl Alcohol < 5.0 mg/dL 05/23/21 07:41 ABX Reporting Has patient been on IV antibiotics over the past 48 hours?: No
[2021-05-24] MEDS: ONDANSETRON 4 MG/2 ML VIAL IVP PRN ×2 (08:03→17:16)
[2021-05-24] MEDS ORDERED: INSULIN REGULAR HUMAN 100 UNIT in SODIUM CHLORIDE 0.9% 100ML 99 ML IV SCH ×2 (08:21→16:47)
[2021-05-24 09:43] LABS: EOSINOPHILS % (AUTO) 1.2 %; HCT - HEMATOCRIT 39.5 % (42.0-52.0); HGB - HEMOGLOBIN 13.8 g/dL (14.0-18.0); LYMPHOCYTES % (AUTO) 14.7 %; MEAN CORPUSCULAR HEMOGLOBIN 30.9 pg (27.0-31.0); MEAN CORPUSCULAR HGB CONC 34.9 g/dL (32.0-36.0); MEAN CORPUSCULAR VOLUME 88.6 fL (80.0-94.0); MEAN PLATELET VOLUME 11.3 fL (7.4-11.4); MONOCYTES % (AUTO) 8.8 %; NEUTROPHILS % (AUTO) 74.3 %; PLT - PLATELET COUNT 218 10^3/uL (130-450); RED BLOOD COUNT 4.46 10^6/uL (4.70-6.10); RED CELL DISTRIBUTION WIDTH 39.8 % (12.0-15.0); WHITE BLOOD COUNT 13.3 x10^3/uL (4.8-10.8)
[2021-05-24 09:44] LABS: BASOPHILS # (AUTO) 0.1 10^3/uL (0.0-0.1); BASOPHILS % (AUTO) 0.4 %; EOSINOPHILS # (AUTO) 0.2 10^3/uL (0.0-0.7); MONOCYTES # (AUTO) 1.2 10^3/uL (0.0-1.0); NEUTROPHILS # (AUTO) 9.9 10^3/uL (1.5-6.6)
[2021-05-24] MEDS: ACETAMINOPHEN 325 MG TABLET PO PRN ×3 (10:12→20:20)
--- NOTE | 2021-05-24 10:37 | PHARMACY PROGRESS NOTE ---
- Best Possible Medication History Admit Date and Time: 05/23/21 1238 Processed by: Nursing Medication History completed: Yes Secondary Source(s): Insurance records As the person ultimately responsible for medication therapy, providers are able to order a medication from an existing home medication list in [facility] via the "Reconcile Routine" prior to Confirmation of that medication by direct support specialist. Such practice is discouraged except when the physician, in their clinical judgment, deems that a medical need exists for a medication without regard to previous use.
[2021-05-24 14:24] LABS: BUN - BLOOD UREA NITROGEN < 5 mg/dL (6-20); CALCIUM 8.6 mg/dL (8.5-10.3); CARBON DIOXIDE - CO2 22 mmol/L (21-32); CHLORIDE 100 mmol/L (101-111); CREATININE 0.6 mg/dL (0.6-1.2); GFR - MDRD 148 (>89); GLUCOSE 67 mg/dL (70-100); POTASSIUM 3.5 mmol/L (3.5-5.0); SODIUM 134 mmol/L (135-145)
[2021-05-24] MEDS: POTASSIUM CHLORIDE 20 MEQ TABLET PO SCH ×2 (17:16→18:20)
[2021-05-24] MEDS ORDERED: ATORVASTATIN 40 MG TABLET PO SCH (21:00)
[2021-05-24] MEDS: SODIUM CHLORIDE FLUSH 0.9% 10 ML SYRINGE IVP PRN (21:43)
[2021-05-24] MEDS: ZOLPIDEM 5 MG TABLET PO PRN (23:26)
[2021-05-25] MEDS: SODIUM CHLORIDE FLUSH 0.9% 10 ML SYRINGE IVP PRN ×2 (03:16→04:59)
[2021-05-25] MEDS: HYDROmorphone 1 MG/ML CARPUJECT IVP PRN ×8 (03:16→21:16)
[2021-05-25] MEDS: D5.45NS W/20 MEQ KCL 1,000 ML IV SCH (04:05)
[2021-05-25] MEDS: oxyCODONE 5 MG TABLET PO PRN ×4 (04:58→22:07)
[2021-05-25 05:00] LABS: BASOPHILS % (AUTO) 0.4 %; EOSINOPHILS # (AUTO) 0.3 10^3/uL (0.0-0.7); EOSINOPHILS % (AUTO) 2.8 %; HCT - HEMATOCRIT 37.7 % (42.0-52.0); HGB - HEMOGLOBIN 12.7 g/dL (14.0-18.0); LYMPHOCYTES # (AUTO) 1.5 10^3/uL (1.5-3.5); LYMPHOCYTES % (AUTO) 13.4 %; MEAN CORPUSCULAR HEMOGLOBIN 31.2 pg (27.0-31.0); MEAN CORPUSCULAR HGB CONC 33.7 g/dL (32.0-36.0); MEAN CORPUSCULAR VOLUME 92.6 fL (80.0-94.0); MEAN PLATELET VOLUME 11.1 fL (7.4-11.4); NEUTROPHILS # (AUTO) 8.3 10^3/uL (1.5-6.6); PLT - PLATELET COUNT 207 10^3/uL (130-450); RED BLOOD COUNT 4.07 10^6/uL (4.70-6.10); RED CELL DISTRIBUTION WIDTH 12.6 % (12.0-15.0); WHITE BLOOD COUNT 11.2 x10^3/uL (4.8-10.8)
[2021-05-25 05:12] LABS: BUN - BLOOD UREA NITROGEN < 5 mg/dL (6-20); CALCIUM 8.7 mg/dL (8.5-10.3); CARBON DIOXIDE - CO2 24 mmol/L (21-32); CHLORIDE 102 mmol/L (101-111); CREATININE 0.6 mg/dL (0.6-1.2); GFR - MDRD 148 (>89); GLUCOSE 120 mg/dL (70-100); LIPASE 72 U/L (22-51); SODIUM 136 mmol/L (135-145)
[2021-05-25 05:19] LABS: CHOL/HDL RATIO 6.9 (<5.0); CHOLESTEROL 201 mg/dL; HDL CHOLESTEROL 29 mg/dL; LDL CHOLESTEROL,CALCULATED 98 mg/dL; LDL/HDL RATIO 3.4 (<3.6); TRIGLYCERIDES 371 mg/dL; VLDL CHOLESTEROL 74 mg/dL
[2021-05-25 05:30] LABS: PHOSPHORUS 2.8 mg/dL (2.5-4.6)
[2021-05-25] MEDS: gemfibroziL 600 MG TABLET PO SCH ×2 (06:35→16:07)
[2021-05-25] MEDS: PANTOPRAZOLE 40 MG TABLET PO SCH (06:35)
--- NOTE | 2021-05-25 07:31 | PROVIDER PROGRESS NOTE ---
Assessment/Plan - Problem List (1) Pancreatitis Qualifiers: Chronicity: acute Pancreatitis type: drug induced Acute pancreatitis complication: unspecified Qualified Code(s): K85.30 - Drug induced acute pancreatitis without necrosis or infection Assessment/Plan: Secondary to hypertriglyceridemia. Patient continues to improve clinically today. Triglycerides improved from 755 to 371. Insulin drip and D5 plus half normal saline +20 mEq of potassium at 150 mL/h discontinues Normal saline started at 125 mL/h. Patient downgraded from ICU to MedSur status Lipase level improved from 134 down to 73. Continued improvement in patient's pain. Continue Dilaudid, oxycodone as needed for pain. (2) Hypertriglyceridemia Assessment/Plan: Triglycerides today was 371. This is an improvement from 755. On omega-3 fatty acids 1 g daily. Lopid 600 mg p.o. twice daily. 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 (3) Hypertension Assessment/Plan: Currently normotensive. We will order a as needed medication if and when indicated. (4) Leukocytosis Assessment/Plan: Likely reactive. WBC was 13.3. Improved to 11.2 today without any antibiotics. Will monitor closely. - Current Meds Current Meds: Current Medications Generic Name Dose Route Start Last Admin Trade Name Freq PRN Reason Stop Dose Admin Acetaminophen 650 mg 05/23/21 12:38 05/24/21 20:20 Acetaminophen 325 Mg Tablet PO 650 mg Q4HR PRN Administration Pain 1 to 4 Gemfibrozil 600 mg 05/25/21 07:00 05/25/21 06:35 Gemfibrozil 600 Mg Tablet PO 600 mg BIDAC TRISHA Administration Hydromorphone HCl 1 mg 05/23/21 21:55 05/25/21 06:35 Hydromorphone 1 Mg/Ml Carpuject IVP 1 mg Q1H PRN Administration Pain 8 to 10 Ondansetron HCl 4 mg 05/23/21 12:38 05/24/21 17:16 Ondansetron 4 Mg/2 Ml Vial IVP 4 mg Q6HR PRN Administration Nausea / Vomiting Oxycodone HCl 5 mg 05/23/21 12:38 05/25/21 04:58 Oxycodone 5 Mg Tablet PO 5 mg Q4HR PRN Administration Pain 5 to 7 Pantoprazole Sodium 40 mg 05/24/21 07:00 05/25/21 06:35 Pantoprazole 40 Mg Tablet PO 40 mg QDAC TRISHA Administration Sodium Chloride 10 ml 05/23/21 17:00 05/24/21 23:26 Sodium Chloride Flush 0.9% 10 Ml Syringe IVP 10 ml 0100,0900,1700 TRISHA Administration Sodium Chloride 10 ml 05/23/21 12:38 05/25/21 04:59 Sodium Chloride Flush 0.9% 10 Ml Syringe IVP 10 ml PRN PRN Administration NEEDED PER PROVIDER ORDERS Zolpidem Tartrate 5 mg 05/24/21 22:41 05/24/21 23:26 Zolpidem 5 Mg Tablet PO 5 mg QPM PRN Administration Insomnia - Lab Result [place] Diagrams: 05/25/21 04:25 05/25/21 04:25 - Additional Planning My Orders: My Active Orders 05/24/21 07:00 Pantoprazole [Protonix] 40 mg PO QDAC 05/24/21 Lunch Clear Liquid Diet [DIET] 05/25/21 07:00 gemfibroziL [Lopid] 600 mg PO BIDAC 05/25/21 08:00 Sodium Chloride 0.9% [Normal Saline 0.9%] 1,000 ml IV 125 mls/hr 05/25/21 09:00 [place]-3 Acid Ethyl Esters [Lovaza] 1 gm PO DAILY 05/26/21 05:00 BMP - BASIC METABOLIC PANEL [CHEM] DAILYLAB CBC - COMP BLD CT W/AUTO DIFF [HEME] DAILYLAB LIPASE [CHEM] DAILYLAB 05/27/21 05:00 BMP - BASIC METABOLIC PANEL [CHEM] DAILYLAB CBC - COMP BLD CT W/AUTO DIFF [HEME] DAILYLAB 05/28/21 05:00 BMP - BASIC METABOLIC PANEL [CHEM] DAILYLAB CBC - COMP BLD CT W/AUTO DIFF [HEME] DAILYLAB 05/29/21 05:00 BMP - BASIC METABOLIC PANEL [CHEM] DAILYLAB CBC - COMP BLD CT W/AUTO DIFF [HEME] DAILYLAB Subjective - Subjective Patient Reports: Other (Patient reports feeling better today. Reported slight improvement in pain today compared to the previous day.) Objective Vital Signs: Vital Signs - 24 hr 05/24/21 05/24/21 05/24/21 08:00 09:00 10:00 Temperature 37.5 C Heart Rate [101 101 H 100 ] Heart Rate [ 103 H 101 H Monitoring electrodes] Respiratory 17 19 20 Rate Blood Pressure 125/79 120/79 113/67 [Left Brachial artery] O2 Saturation 94 94 94 05/24/21 05/24/21 05/24/21 11:00 12:00 13:00 Temperature 36.7 C Heart Rate [101 98 95 ] Heart Rate [ 95 92 Monitoring electrodes] Respiratory 13 12 14 Rate Blood Pressure 123/79 116/84 H 121/75 [Left Brachial artery] O2 Saturation 98 92 05/24/21 05/24/21 05/24/21 13:49 14:00 15:00 Temperature 37.2 C Heart Rate [101 101 H 102 H ] Heart Rate [ Monitoring electrodes] Respiratory 18 12 Rate Blood Pressure 118/81 H 113/68 [Left Brachial artery] O2 Saturation 92 95 05/24/21 05/24/21 05/24/21 16:00 17:00 18:00 Temperature 37.9 C Heart Rate [101 112 H 114 H 115 H ] Heart Rate [ 112 H 114 H Monitoring electrodes] Respiratory 15 17 18 Rate Blood Pressure 125/76 119/77 126/73 [Left Brachial artery] O2 Saturation 96 95 95 05/24/21 05/24/21 05/24/21 19:00 20:00 21:00 Temperature 37.3 C Heart Rate [101 114 H ] Heart Rate [ 114 H 110 H 102 H Monitoring electrodes] Respiratory 16 13 14 Rate Blood Pressure 122/75 111/68 122/76 [Left Brachial artery] O2 Saturation 92 90 L 95 05/24/21 05/24/21 05/25/21 22:00 23:00 00:00 Temperature Heart Rate [101 ] Heart Rate [ 101 H 100 97 Monitoring electrodes] Respiratory 15 16 18 Rate Blood Pressure 125/76 97/58 L 129/61 [Left Brachial artery] O2 Saturation 95 95 97 05/25/21 05/25/21 05/25/21 01:00 02:00 03:00 Temperature Heart Rate [101 ] Heart Rate [ 96 94 89 Monitoring electrodes] Respiratory 14 13 Rate Blood Pressure 125/93 H 127/81 H 112/65 [Left Brachial artery] O2 Saturation 91 L 95 98 05/25/21 05/25/21 05/25/21 04:00 05:00 06:00 Temperature 37.3 C 37.4 C Heart Rate [101 ] Heart Rate [ 108 H 105 H 100 Monitoring electrodes] Respiratory 24 18 16 Rate Blood Pressure 115/71 129/84 H 129/81 H [Left Brachial artery] O2 Saturation 98 96 96 05/25/21 07:00 Temperature Heart Rate [101 ] Heart Rate [ 97 Monitoring electrodes] Respiratory 16 Rate Blood Pressure 128/84 H [Left Brachial artery] O2 Saturation 93 Oxygen O2 Source Nasal cannula I&O (Last 24 Hrs): Intake and Output Totals x24h 05/23/21 05/24/21 05/25/21 23:59 23:59 23:59 Intake Total 7942.431 3953.666 1332.5 Output Total 250 4500 1450 Balance 1372.457 4436.666 -117.5 Comments/Notes: General: Alert, Oriented x3, Moderate distress HEENT: PERRLA, EOMI Neck: Supple, No JVD Neuro: Alert, Non Focal, Oriented Times 3 Cardiovascular: Regular rate, No murmurs Respiratory: Chest non-tender, No respiratory distress Abdomen: Normal bowel sounds, Soft, Other (Tender to palpation in all quadrants.) Extremities: No clubbing, No cyanosis, No edema, No tenderness/swelling Skin: No rashes, No breakdown, No significant lesion - Results Results: Laboratory Results WBC 11.2 x10^3/uL (4.8-10.8) H 05/25/21 04:25 RBC 4.07 10^6/uL (4.70-6.10) L 05/25/21 04:25 Hgb 12.7 g/dL (14.0-18.0) L 05/25/21 04:25 Hct 37.7 % (42.0-52.0) L 05/25/21 04:25 MCV 92.6 fL (80.0-94.0) 05/25/21 04:25 MCH 31.2 pg (27.0-31.0) H 05/25/21 04:25 MCHC 33.7 g/dL (32.0-36.0) 05/25/21 04:25 RDW 12.6 % (12.0-15.0) 05/25/21 04:25 Plt Count 207 10^3/uL (130-450) 05/25/21 04:25 MPV 11.1 fL (7.4-11.4) 05/25/21 04:25 Neut # (Auto) 8.3 10^3/uL (1.5-6.6) H 05/25/21 04:25 Lymph # (Auto) 1.5 10^3/uL (1.5-3.5) 05/25/21 04:25 [place] # (Auto) 1.0 10^3/uL (0.0-1.0) 05/25/21 04:25 Eos # (Auto) 0.3 10^3/uL (0.0-0.7) 05/25/21 04:25 Baso # (Auto) 0.0 10^3/uL (0.0-0.1) 05/25/21 04:25 Absolute Nucleated RBC 0.00 x10^3/uL 05/25/21 04:25 Nucleated RBC % 0.0 /100WBC 05/25/21 04:25 VBG pH 7.440 (7.31-7.41) H 05/23/21 21:59 Ionized Calcium 1.09 mmol/L (1.15-1.33) L 05/23/21 21:59 Sodium 136 mmol/L (135-145) 05/25/21 04:25 Potassium 4.0 mmol/L (3.5-5.0) 05/25/21 04:25 Chloride 102 mmol/L (101-111) 05/25/21 04:25 Carbon Dioxide 24 mmol/L (21-32) 05/25/21 04:25 Anion Gap 10.0 (6-13) 05/25/21 04:25 BUN < 5 mg/dL (6-20) L 05/25/21 04:25 Creatinine 0.6 mg/dL (0.6-1.2) 05/25/21 04:25 Estimated GFR (MDRD) 148 (>89) 05/25/21 04:25 Glucose 120 mg/dL (70-100) H 05/25/21 04:25 POC Whole Bld Glucose 164 mg/dL (70 - 100) H 05/25/21 05:54 Calcium 8.7 mg/dL (8.5-10.3) 05/25/21 04:25 Phosphorus 2.8 mg/dL (2.5-4.6) 05/25/21 04:25 Magnesium 2.0 mg/dL (1.7-2.8) 05/25/21 04:25 Total Bilirubin 1.2 mg/dL (0.2-1.0) H 05/24/21 04:30 AST 16 IU/L (10-42) 05/24/21 04:30 ALT 20 IU/L (10-60) 05/24/21 04:30 Alkaline Phosphatase 55 IU/L (42-121) 05/24/21 04:30 Troponin I High Sens 3.2 ng/L (2.3-19.7) 05/23/21 07:41 Total Protein 6.5 g/dL (6.7-8.2) L 05/24/21 04:30 Albumin 3.6 g/dL (3.2-5.5) 05/24/21 04:30 Globulin 2.9 g/dL (2.1-4.2) 05/24/21 04:30 Albumin/Globulin Ratio 1.2 (1.0-2.2) 05/24/21 04:30 Triglycerides 371 mg/dL (-149) H 05/25/21 04:25 Cholesterol 201 mg/dL (-199) H 05/25/21 04:25 LDL Cholesterol Direct 36 mg/dL (-129) 05/24/21 04:30 LDL Cholesterol, Calc 98 mg/dL (-129) 05/25/21 04:25 VLDL Cholesterol 74 mg/dL 05/25/21 04:25 HDL Cholesterol 29 mg/dL (60-) L 05/25/21 04:25 LDL/HDL Ratio 3.4 (<3.6) 05/25/21 04:25 dLDL/HDL Ratio 1.5 (<3.6) 05/24/21 04:30 Cholesterol/HDL Ratio 6.9 (<5.0) 05/25/21 04:25 Lipase 72 U/L (22-51) H 05/25/21 04:25 Nasal Adenovirus (PCR) NOT DETECTED 05/23/21 12:48 Nasal B. parapertussis DNA (PCR) NOT DETECTED 05/23/21 12:48 Nasal Coronavir 229E PCR NOT DETECTED 05/23/21 12:48 Nasal Coronavir HKU1 PCR NOT DETECTED 05/23/21 12:48 Nasal Coronavir NL63 PCR NOT DETECTED 05/23/21 12:48 Nasal Coronavir OC43 PCR NOT DETECTED 05/23/21 12:48 Nasal Enterovir/Rhinovir PCR NOT DETECTED 05/23/21 12:48 Nasal Influenza B PCR NOT DETECTED 05/23/21 12:48 Nasal Influenza A PCR NOT DETECTED 05/23/21 12:48 Nasal Parainfluen 1 PCR NOT DETECTED 05/23/21 12:48 Nasal Parainfluen 2 PCR NOT DETECTED 05/23/21 12:48 Nasal Parainfluen 3 PCR NOT DETECTED 05/23/21 12:48 Nasal Parainfluen 4 PCR NOT DETECTED 05/23/21 12:48 Nasal RSV (PCR) NOT DETECTED 05/23/21 12:48 Nasal Screen MRSA (PCR) NEGATIVE (NEGATIVE) 05/23/21 18:00 Nasal B.pertussis DNA PCR NOT DETECTED 05/23/21 12:48 Nasal C.pneumoniae (PCR) NOT DETECTED 05/23/21 12:48 [place] Human Metapneumo PCR NOT DETECTED 05/23/21 12:48 Nasal M.pneumoniae (PCR) NOT DETECTED 05/23/21 12:48 Nasal SARS-CoV-2 (PCR) NOT DETECTED 05/23/21 12:48 Ethyl Alcohol < 5.0 mg/dL 05/23/21 07:41 ABX Reporting Has patient been on IV antibiotics over the past 48 hours?: No
[2021-05-25] MEDS: SODIUM CHLORIDE FLUSH 0.9% 10 ML SYRINGE IVP SCH ×2 (08:20→16:07)
[2021-05-25] MEDS: SODIUM CHLORIDE 0.9% 1,000 ML IV SCH ×3 (10:16→18:11)
[2021-05-25] MEDS: OMEGA-3 ACID ETHYL ESTERS 1 GM CAPSULE PO SCH (10:25)
[2021-05-25] MEDS: ACETAMINOPHEN 325 MG TABLET PO PRN ×3 (10:29→19:30)
[2021-05-25] MEDS: ZOLPIDEM 5 MG TABLET PO PRN (23:47)
[2021-05-26] MEDS: ACETAMINOPHEN 325 MG TABLET PO PRN ×3 (00:07→09:50)
[2021-05-26] MEDS: HYDROmorphone 1 MG/ML CARPUJECT IVP PRN ×3 (00:07→08:14)
[2021-05-26] MEDS: SODIUM CHLORIDE FLUSH 0.9% 10 ML SYRINGE IVP SCH ×2 (00:52→08:14)
[2021-05-26] MEDS: SODIUM CHLORIDE 0.9% 1,000 ML IV SCH (01:40)
[2021-05-26] MEDS: oxyCODONE 5 MG TABLET PO PRN ×2 (05:12→09:50)
[2021-05-26 06:22] LABS: BASOPHILS % (AUTO) 0.4 %; EOSINOPHILS # (AUTO) 0.4 10^3/uL (0.0-0.7); HCT - HEMATOCRIT 37.8 % (42.0-52.0); HGB - HEMOGLOBIN 12.4 g/dL (14.0-18.0); LYMPHOCYTES # (AUTO) 1.8 10^3/uL (1.5-3.5); LYMPHOCYTES % (AUTO) 27.1 %; MEAN CORPUSCULAR HEMOGLOBIN 31.2 pg (27.0-31.0); MEAN CORPUSCULAR HGB CONC 32.8 g/dL (32.0-36.0); MEAN PLATELET VOLUME 11.4 fL (7.4-11.4); MONOCYTES # (AUTO) 0.5 10^3/uL (0.0-1.0); MONOCYTES % (AUTO) 7.4 %; NEUTROPHILS % (AUTO) 58.8 %; PLT - PLATELET COUNT 205 10^3/uL (130-450); RED BLOOD COUNT 3.98 10^6/uL (4.70-6.10); RED CELL DISTRIBUTION WIDTH 12.1 % (12.0-15.0); WHITE BLOOD COUNT 6.7 x10^3/uL (4.8-10.8)
[2021-05-26] MEDS: PANTOPRAZOLE 40 MG TABLET PO SCH (06:27)
[2021-05-26] MEDS: gemfibroziL 600 MG TABLET PO SCH (06:27)
[2021-05-26 06:33] LABS: CALCIUM 8.9 mg/dL (8.5-10.3); CREATININE 0.6 mg/dL (0.6-1.2)
[2021-05-26 07:21] VITALS: BP 128/87
[2021-05-26] MEDS: OMEGA-3 ACID ETHYL ESTERS 1 GM CAPSULE PO SCH (08:14)
[2021-05-26] MEDS ORDERED: polyethylene glycoL 3350 17 GM PACKET PO SCH (09:00)
--- NOTE | 2021-05-26 09:03 | DISCHARGE SUMMARY ---
Discharge Summary Admit Date: 05/23/21 Discharge Date: 05/26/21 Discharging Provider: Maylin Ortega Primary Care Provider: Dr Perez Code Status: Attempt Resuscitation Condition at Discharge: Good Discharge Disposition: 01 Home, Self Care - DIAGNOSES Admission Diagnoses: Pancreatitis Hypertriglyceridemia Hypertension Discharge Diagnoses with Status of Each Condition: Pancreatitis: Acute. 2/2 Hypertriglyceridemia. 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 Improving. 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 Improved. Patient discharged with prescription of Lopid and omega-3 fatty acids. Hypertension: Chronic. Controlled. Resume home medication. Leukocytosis: Chief. Resolved. - HPI History of Present Illness: Patient is a 40-year-old male who presented to the ED with complaint of generalized abdominal pain and back pain. He woke up around 5 AM with sharp a bdominal pain for which he took a tablet of oxycodone. When there was no change in about 45 minutes he was brought to the ED by his . He last ate tequidos and chips for dinner. He denied chest pain, dyspnea, fever or chills. He has been nauseous but no vomiting. Work-up in the ED included a lipase level which was 616. A lipid panel also showed a triglyceride level greater than 2000. CT of the abdomen showed mild pancreatic stranding consistent with pancreatitis.He was diagnosed with pancreatitis and presented for admission for further management. This is his fourth episode of pancreatitis. The first time he was told it was due to alcohol consumption, the second time due to his diet, the third time it was thought to be secondary to his antihypertensive medication. His father also has history of pancreatitis due to hypertriglyceridemia. - HOSPITAL COURSE Hospital Course: Patient was admitted to the ICU and maintained on an insulin drip and D5 plus half normal saline +20 of potassium chloride at 125 mL an hour. This was maintained for 2 days. Patient's triglyceride levels improved from greater than 2000 down to 755 the first day and 371 the second day. He was prescribed Lopid 600 mg p.o. twice daily and omega 3 fatty acids 1 g da gissel while in the hospital. The omega-3 fatty acid was increased to 2 g twice daily upon discharge. His pain was managed with Dilaudid and oxycodone. By discharge she was prescribed [place] to take 1 tablet every 4-6 hours as needed for a total of 16 tablets. He was instructed to follow-up with his primary care physician Dr. Perez at the [facility]. It is expected that his primary care physician will refer him to an family and marriage counsellor. This is because of familial/genetic component of hypertriglyce ridemia is suspected as his father had similar symptoms. The rest of the patient's hospital stay was unremarkable. - ALLERGIES Allergies/Adverse Reactions: Allergies Allergy/AdvReac Type Severity Reaction Status Date / Time Penicillins Allergy Unknown Verified 05/23/21 07:31 - MEDICATIONS Home Medications: Ambulatory Orders Medication Instructions Recorded Confirmed hydroCHLOROthiazide [Hydrodiuril] 12.5 mg PO DAILY #30 cap 05/05/21 05/23/21 HYDROcodone/ACET 7.5/325 [[place] 1 each PO Q4-6H 4 Days #16 tablet 05/26/21 7.5/325] [place]-3 Acid Ethyl Esters [Lovaza] 2 gm PO BID 30 Days #120 cap 05/26/21 gemfibroziL [Lopid] 600 mg PO BIDAC 30 Days #60 tablet 05/26/21 - PHYSICAL EXAM AT DISCHARGE General Appearance: positive: Alert, Mild distress, Moderate distress Eyes Bilateral: positive: PERRL, EOMI ENT: positive: No signs of dehydration Neck: positive: No JVD, Trachea midline Respiratory: positive: Chest non-tender, No respiratory distress, Breath sounds nml. negative: Wheezes, Rales, Rhonchi Cardiovascular: positive: Regular rate & rhythm, No murmur Abdomen: positive: Tenderness (mild to moderate). negative: Guarding Back: negative: Nml inspection Skin: positive: Color nml, No rash, Warm Extremities: positive: Non-tender, Full ROM Neurologic/Psychiatric: positive: Oriented x3, Mood/affect nml - LABS Result Diagrams: 05/26/21 05:22 05/26/21 05:22 - TIME SPENT Time Spent in Discharge (Minutes): 20
--- NOTE | 2021-05-26 09:08 | Discharge Plan ---
Discharge Plan Problem Reviewed?: Yes Disposition: Home, Self Care Condition: Good Prescriptions: gemfibroziL [Lopid] 600 mg PO BIDAC 30 Days #60 tablet [place]-3 Acid Ethyl Esters [Lovaza] 2 gm PO BID 30 Days #120 cap HYDROcodone/ACET 7.5/325 [[place] 7.5/325] 1 each PO Q4-6H 4 Days #16 tablet Diet: Soft Activity Restrictions: Activity as Tolerated Weight Bearing: Full Weight Health Concerns: You were admitted on 05/23/2021 with abdominal pain for which work-up included a CT of the abdomen pelvis showed that you had acute pancreatitis. Your lipase at presentation was 616. Further work-up included checking your lipid panel and it showed your triglyceride level was greater than 2000. You were admitted to the ICU and placed on an insulin drip. While on this your triglyceride levels steadily improved down to 371. You were prescribed Lopid 600 mg p.o. twice daily and omega-3 fatty acids 2 g po bid. Your pain was managed with Dilaudid and norco. Upon discharge you will be prescribed [place] for 4 more days. It is suspected that you may have familial hypertriglyceridemia as you reported your father had similar problems. You are to follow-up with your primary care physician Dr. Perez for a referral to endocrinology. You have been advised to maintain a soft diet for a couple of days and then slowly reintroduce meals as tolerated. You expressed understanding of the plan above and are in agreement. You are being discharged in stable condition. No Smoking: If you smoke, Please STOP! Call for help.
--- NOTE | 2021-05-27 14:45 | ED Physician Documentation ---
ED Addendum - Addendum Addendum: 05/27/21 14:45 Took a call from the hospitalist. There is an issue with his prescription going to the pharmacy and since I have seen the patient before he asked me to write the prescription for the [place]. This was done and E prescribed to [facility].
== END 2021-05-26 10:20 | disposition home or self-care (01) | DRG 642 ==
LOC: ED 07:15 → ICU 12:38 → MS2 05-25 14:43
PROVIDERS: ADMIT Internal Medicine; ATTEND Internal Medicine
DX: E78.1 Pure hyperglyceridemia (principal); K85.80 Other acute pancreatitis without necrosis or infection; I10 Essential (primary) hypertension; F17.210 Nicotine dependence, cigarettes, uncomplicated
CPT/HCPCS: 0202U; 36415; 74177; 80048; 80053; 80061; 80320; 82330; 83690; 83721; 83735; 84100; 84478; 84484; 85025; 87150; 93005; 96361; 96374; 96375; 96376; 99285; A9270; J1170; J1815; Q9967

== ENCOUNTER 2021-08-15 07:47 | Inpatient (IN) | payer OTHER ==
--- NOTE | 2021-08-15 07:55 | ED Physician Documentation ---
PD HPI ABD PAIN - Stated complaint Stated Complaint: ABD PX - History obtained from History obtained from: Patient - History of Present Illness Timing - onset: Last night (about 3 am during the night, onset of mid to upper abd pain associated with nausea but no vomiting.) Timing - duration: Hours (4-5) Timing - details: Abrupt onset, Still present Pain level max: 10 Pain level now: 10 Quality: Cramping, Aching, Other Location: Epigastric, LUQ, Other (upper abd) Radiation: No: Chest, Lower back, Left flank, Right flank Improved by: Laying still Worsened by: Eating, Moving, Palpation. No: Breathing Associated symptoms: Nausea. No: Fever, Vomiting, Diarrhea, Constipation, Near syncope / syncope Similar symptoms before: Diagnosis (4 prior similar episodes in the past year Dx pancreatitis. He had history of occasional alcohol but has not drank since prior episode in May. Had markedly elevated triglycerides on admission May. Previously on Lisinopril but that was changed after first episode. No other obvious causes.) Recently seen: Emergency Dept (May 2021 for similar symptoms, Dx triglyceride pancreatitis.), Admitted Review of Systems Constitutional: denies: Fever, Chills Nose: denies: Rhinorrhea / runny nose, Congestion Throat: denies: Sore throat Cardiac: denies: Chest pain / pressure Respiratory: denies: Dyspnea, Cough GI: reports: Abdominal Pain, Nausea. denies: Vomiting, Constipation, Diarrhea : denies: Dysuria Neurologic: reports: Generalized weakness (today). denies: Near syncope, Headache Endocrine: denies: Weight loss PD PAST MEDICAL HISTORY - Past Medical History Cardiovascular: Hypertension, High cholesterol Respiratory: None Neuro: None Endocrine/Autoimmune: None GI: Pancreatitis : None HEENT: None Psych: None Musculoskeletal: None Derm: None - Past Surgical History Past Surgical History: Yes General: Appendectomy Ortho: Other /[employer]: Other - Present Medications Home Medications: Ambulatory Orders Medication Instructions Recorded Confirmed hydroCHLOROthiazide [Hydrodiuril] 12.5 mg PO DAILY #30 cap 05/05/21 08/15/21 [place]-3 Acid Ethyl Esters [Lovaza] 2 gm PO BID 30 Days #120 cap 05/26/21 08/15/21 gemfibroziL [Lopid] 600 mg PO BIDAC 30 Days #60 tablet 05/26/21 08/15/21 Hydrocodone/Acetaminophen 1 each PO Q6H PRN #16 tablet 05/27/21 08/15/21 [Hydrocodone-Acetamin 7.5-300] - Allergies Allergies/Adverse Reactions: Allergies Allergy/AdvReac Type Severity Reaction Status Date / Time Penicillins Allergy Unknown Verified 08/15/21 07:59 - Social History Does the pt smoke?: Yes Smoking Status: Current every day smoker Does the pt drink ETOH?: Yes Does the pt have substance abuse?: No - Immunizations Immunizations are current?: Yes - POLST Patient has POLST: No POLST Status: Full Code PD ED PE NORMAL - Vitals Vital signs reviewed: Yes - General General: Alert and oriented X 3, Well developed/nourished, Other (appears considerable pain; holding upper abd. ) - Neck Neck: Supple, no meningeal sign, No adenopathy - Cardiac Cardiac: RRR, No murmur - Respiratory Respiratory: No respiratory distress, Clear bilaterally - Abdomen Abdomen: Soft, Non distended, No organomegaly, Other (tender to palpation and percussion, with guarding, in upper abdomen midline mostly.) - Male Male : Deferred - Rectal Rectal: Deferred - Back Back: No CVA TTP - Derm Derm: Normal color, Warm and dry - Extremities Extremities: Normal ROM s pain, No calf tenderness / cord - Neuro Neuro: Alert and oriented X 3, No motor deficit, Normal speech Results - Vitals Vitals: Vital Signs - 24 hr 08/15/21 08/15/21 07:57 08:22 Temperature 36.8 C Heart Rate 77 77 Respiratory 20 18 Rate Blood Pressure 172/114 H 168/113 H O2 Saturation 98 93 Oxygen O2 Source Room air - Labs Labs: Laboratory Tests 08/15/21 08/15/21 08/15/21 08:10 08:10 08:10 WBC 10.3 RBC 4.90 Hgb 14.9 Hct 41.8 L MCV 85.3 MCH 30.4 MCHC 35.6 RDW 12.3 Plt Count 240 MPV 11.2 Neut # (Auto) 6.9 H Lymph # (Auto) 2.4 [place] # (Auto) 0.7 Eos # (Auto) 0.2 Baso # (Auto) 0.1 Absolute Nucleated RBC 0.17 Nucleated RBC % 1.6 Sodium 129 L Potassium 3.9 Chloride 95 L Carbon Dioxide 23 Anion Gap 11.0 BUN 11 Creatinine 0.7 Estimated GFR (MDRD) 124 Glucose 143 H POC Whole Bld Glucose Calcium 9.1 Total Bilirubin 1.0 AST 26 ALT 20 Alkaline Phosphatase 62 Total Protein 6.7 Albumin 4.2 Globulin 2.5 Albumin/Globulin Ratio 1.7 Triglycerides > 1000 H > 1000 H Cholesterol 430 H LDL Cholesterol Direct 25 25 LDL Cholesterol, Calc Not Reportable VLDL Cholesterol Not Reportable HDL Cholesterol 24 L LDL/HDL Ratio Not Reportable dLDL/HDL Ratio Not Reportable 1.0 Cholesterol/HDL Ratio 17.9 Lipase 624 H Urine Color Urine Clarity Urine pH Ur Specific [place] Urine Protein Urine Glucose (UA) Urine Ketones Urine Occult Blood Urine Nitrite Urine Bilirubin Urine Urobilinogen Ur Leukocyte Esterase Ur Microscopic Review Urine Culture Comments 08/15/21 08/15/21 09:33 09:35 WBC RBC Hgb Hct MCV MCH MCHC RDW Plt Count MPV Neut # (Auto) Lymph # (Auto) [place] # (Auto) Eos # (Auto) Baso # (Auto) Absolute Nucleated RBC Nucleated RBC % Sodium Potassium Chloride Carbon Dioxide Anion Gap BUN Creatinine Estimated GFR (MDRD) Glucose POC Whole Bld Glucose 134 H Calcium Total Bilirubin AST ALT Alkaline Phosphatase Total Protein Albumin Globulin Albumin/Globulin Ratio Triglycerides Cholesterol LDL Cholesterol Direct LDL Cholesterol, Calc VLDL Cholesterol HDL Cholesterol LDL/HDL Ratio dLDL/HDL Ratio Cholesterol/HDL Ratio Lipase Urine Color DARK YELLOW Urine Clarity CLEAR Urine pH 5.5 Ur Specific [place] >=1.030 H Urine Protein NEGATIVE Urine Glucose (UA) NEGATIVE Urine Ketones NEGATIVE Urine Occult Blood NEGATIVE Urine Nitrite NEGATIVE Urine Bilirubin NEGATIVE Urine Urobilinogen 0.2 (NORMAL) Ur Leukocyte Esterase NEGATIVE Ur Microscopic Review NOT INDICATED Urine Culture Comments NOT INDICATED PD MEDICAL DECISION MAKING - ED course Complexity details: reviewed old records (admission May 2021 for pancreatitis. ER visit Nov for same but was able to discharge home with meds. ), reviewed results (c/w pancreatitis, with markedly elevated triglycerides. ), considered differential, d/w patient Departure - Departure Disposition: [facility] DC/Xfer Clinical Impression: Abdominal pain Qualifiers: Abdominal location: epigastric Qualified Code(s): R10.13 - Epigastric pain Pancreatitis Qualifiers: Chronicity: acute Pancreatitis type: unspecified pancreatitis type Acute pancreatitis complication: unspecified Qualified Code(s): K85.90 - Acute pancreatitis without necrosis or infection, unspecified Condition: Stable Discharge Date/Time: 08/15/21 11:30
[2021-08-15] MEDS ORDERED: KETOROLAC 30 MG/ML VIAL IVP STA (08:09)
[2021-08-15] MEDS ORDERED: ONDANSETRON 4 MG/2 ML VIAL IVP STA (08:09)
[2021-08-15] MEDS ORDERED: HYDROmorphone 1 MG/ML CARPUJECT IVP STA ×2 (08:09→08:46)
[2021-08-15] MEDS ORDERED: SODIUM CHLORIDE 0.9% 1,000 ML IV STA ×2 (08:09→09:21)
[2021-08-15 08:52] LABS: BASOPHILS # (AUTO) 0.1 10^3/uL (0.0-0.1); BASOPHILS % (AUTO) 0.5 %; EOSINOPHILS # (AUTO) 0.2 10^3/uL (0.0-0.7); EOSINOPHILS % (AUTO) 1.5 %; HCT - HEMATOCRIT 41.8 % (42.0-52.0); LYMPHOCYTES # (AUTO) 2.4 10^3/uL (1.5-3.5); MEAN CORPUSCULAR HEMOGLOBIN 30.4 pg (27.0-31.0); MEAN CORPUSCULAR HGB CONC 35.6 g/dL (32.0-36.0); MEAN CORPUSCULAR VOLUME 85.3 fL (80.0-94.0); MEAN PLATELET VOLUME 11.2 fL (7.4-11.4); MONOCYTES # (AUTO) 0.7 10^3/uL (0.0-1.0); NEUTROPHILS # (AUTO) 6.9 10^3/uL (1.5-6.6); NEUTROPHILS % (AUTO) 67.1 %; NRBC ABSOLUTE COUNT (AUTO) 0.17 x10^3/uL; NUCLEATED RED BLOOD CELLS AUTO 1.6 /100WBC; PLT - PLATELET COUNT 240 10^3/uL (130-450); RED CELL DISTRIBUTION WIDTH 12.3 % (12.0-15.0); WHITE BLOOD COUNT 10.3 x10^3/uL (4.8-10.8)
[2021-08-15 09:03] LABS: HGB - HEMOGLOBIN 14.9 g/dL (14.0-18.0)
[2021-08-15] MEDS ORDERED: HYDROmorphone 2 MG/ML VIAL IVP STA (09:21)
[2021-08-15 09:27] LABS: ALBUMIN 4.2 g/dL (3.2-5.5); ALBUMIN/GLOBULIN RATIO 1.7 (1.0-2.2); ALKALINE PHOSPHATASE 62 IU/L (42-121); ALT ALANINE AMINOTRANSFERASE 20 IU/L (10-60); AST ASPARTATE AMINOTRANSFERASE 26 IU/L (10-42); BUN - BLOOD UREA NITROGEN 11 mg/dL (6-20); CALCIUM 9.1 mg/dL (8.5-10.3); CARBON DIOXIDE - CO2 23 mmol/L (21-32); CHLORIDE 95 mmol/L (101-111); CREATININE 0.7 mg/dL (0.6-1.2); GFR - MDRD 124 (>89); GLUCOSE 143 mg/dL (70-100); LIPASE 624 U/L (22-51); POTASSIUM 3.9 mmol/L (3.5-5.0); SODIUM 129 mmol/L (135-145); TOTAL PROTEIN 6.7 g/dL (6.7-8.2)
[2021-08-15 09:33] LABS: TRIGLYCERIDES > 1000 mg/dL
[2021-08-15 09:40] LABS: TRIGLYCERIDES > 1000 mg/dL
[2021-08-15 09:42] LABS: CHOL/HDL RATIO 17.9 (<5.0); CHOLESTEROL 430 mg/dL; HDL CHOLESTEROL 24 mg/dL
[2021-08-15 09:47] LABS: BILIRUBIN,URINE NEGATIVE (NEGATIVE); GLUCOSE, URINE (UA) NEGATIVE (NEGATIVE); KETONES,URINE (UA) NEGATIVE (NEGATIVE); LEUKOCYTE ESTERASE, URINE NEGATIVE (NEGATIVE); NITRITE,URINE NEGATIVE (NEGATIVE); OCCULT BLOOD,URINE NEGATIVE (NEGATIVE); PH,URINE 5.5 PH (5.0-7.5); PROTEIN,URINE NEGATIVE (NEGATIVE); UROBILINOGEN,URINE 0.2 (NORMAL) E.U./dL (NORMAL)
[2021-08-15 09:49] LABS: CLARITY,URINE CLEAR (CLEAR)
[2021-08-15 09:58] LABS: LDL CHOLESTEROL,DIRECT 25 mg/dL
[2021-08-15 10:02] LABS: LDL CHOLESTEROL,DIRECT 25 mg/dL
[2021-08-15] MEDS ORDERED: fentaNYL 100 MCG/2 ML VIAL IVP STA (10:12)
[2021-08-15] MEDS ORDERED: DEXTROSE 5%-0.9% NACL 1,000 ML IV STA (10:17)
[2021-08-15] MEDS ORDERED: INSULIN REGULAR HUMAN 100 UNIT in SODIUM CHLORIDE 0.9% 100ML 99 ML IV STA (10:18)
[2021-08-15] MEDS ORDERED: INSULIN REGULAR HUMAN 100 UNIT in SODIUM CHLORIDE 0.9% 100ML 99 ML IV ONE (10:31)
[2021-08-15] MEDS ORDERED: HYDROmorphone 1 MG/ML CARPUJECT IVP PRN (10:43)
--- NOTE | 2021-08-15 10:58 | HISTORY & PHYSICAL EXAMINATION ---
Chief Complaint - Chief Complaint Chief Complaint: epigastric abd pain History of Present Illness - Admitted From Admitted From:: [facility] ED - History Obtained From Records Reviewed: yes History obtained from: patient - History of Present Illness HPI Comment/Other: Patient is a 41-year-old male who presented to the ED with complaint of epiga stric pain. It started around 3 AM this morning when he woke up from sleep. It is rated an 8 out of 10 pain scale. It is nonradiating. He was nauseous and vomited once upon presentation to the ED. Last night for dinner he had rice, ground beef and silent. He denies any alcohol consumption recently. Work-up in the ED showed a lipase of 624. His triglyceride level was noted to be greater than 1000. This is his fourth presentation to the hospital in the past year for the same problem. 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 He has been compliant with omega-3 fatty acids and Lopid. At bedside he denies chest pain, dyspnea, fever or chills. He is being admitted to the ICU for further management. 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 Social History Notes: Patient consumes alcohol occasionally. He reports once to twice weekly. He smokes about half a pack of cigarettes daily. He denies any recreational substance use. He lives at home with his and 2 daughters. He is in the . - POLST Patient has POLST: No POLST Status: Full Code Meds/Allgy - Home Medications Home Medications: Ambulatory Orders Medication Instructions Recorded Confirmed hydroCHLOROthiazide [Hydrodiuril] 12.5 mg PO DAILY #30 cap 05/05/21 08/15/21 HYDROcodone/ACET 7.5/325 [[place] 1 each PO Q4-6H 4 Days #16 tablet 05/26/21 7.5/325] [place]-3 Acid Ethyl Esters [Lovaza] 2 gm PO BID 30 Days #120 cap 05/26/21 08/15/21 gemfibroziL [Lopid] 600 mg PO BIDAC 30 Days #60 tablet 05/26/21 08/15/21 Hydrocodone/Acetaminophen 1 each PO Q6H PRN #16 tablet 05/27/21 08/15/21 [Hydrocodone-Acetamin 7.5-300] - Allergies Allergies/Adverse Reactions: Allergies Allergy/AdvReac Type Severity Reaction Status Date / Time Penicillins Allergy Unknown Verified 08/15/21 07:59 Review of Systems - Constitutional Constitutional: reports: Poor appetite. denies: Fatigue, Fever, Chills - Eyes Eyes: denies: Pain, Vision loss, Dipolpia - Ears, Nose & Throat Ears, Nose & Throat: denies: Vertigo - Cardiovascular Cariovascular: denies: Chest pain, Edema, Lightheadedness - Respiratory Respiratory: denies: Cough, Sputum production, Wheezing, SOB at rest, SOB with exertion - Gastrointestinal Gastrointestinal: reports: Abdominal pain, Nausea, Vomiting. denies: Abdominal distention, Constipation, Diarrhea, Coffee grounds emesis - Genitourinary Genitourinary: denies: Dysuria, Frequency, Urgency, Hematuria - Musculoskeletal Musculoskeletal: denies: Back pain, Muscle aches, Stiffness - Integumentary Integumentary: denies: Rash, Pruritis - Neurological Neurological: denies: General weakness, Focal weakness, Headache, Dizziness - Psychiatric Psychiatric: denies: Depression, Anxiety - Endocrine Endocrine: denies: Polyuria, Polydypsia - Hematologic/Lymphatic Hematologic/Lymphatic: denies: Anemia, Bruising, Petechiae Prior Level of Functionality: Patient is independent of activities of daily living Exam - Vital Signs Vital Signs: Vital Signs x48h Temp Pulse Resp BP Pulse Ox 08/15/21 08:22 77 18 168/113 H 93 08/15/21 07:57 36.8 C 77 20 172/114 H 98 - Physical Exam General Appearance: positive: Alert, Severe distress Eyes Bilateral: positive: PERRL, EOMI ENT: positive: No signs of dehydration Neck: positive: No JVD, Trachea midline Respiratory: positive: Chest non-tender, No respiratory distress, Breath sounds nml. negative: Wheezes, Rales, Rhonchi Cardiovascular: positive: Regular rate & rhythm, No murmur Abdomen: positive: Nml bowel sounds, No distention, Tenderness (epigastric tenderness), Guarding. negative: Rebound Back: positive: Nml inspection Skin: positive: Color nml, No rash, Warm, Dry Extremities: positive: Non-tender, Full ROM, Nml appearance, No pedal edema Neurologic/Psychiatric: positive: Oriented x3, Mood/affect nml Conclusion/Plan - Problem List (1) Pancreatitis Conclusion/Plan: Secondary to hypertriglyceridemia. Patient's triglycerides were greater than 1000. Lipase was 624. We will make patient n.p.o. except for meds, ice chips and sips. Patient was started on insulin drip at 5 units/h. Patient is also on D5 plus normal saline plus 20mEqq KCl at 175 mL/h. Will check lipid panel and lipase level in the morning. Pain management with Dilaudid, oxycodone and all Tylenol as needed. After the last admission in May 2021 patient followed up with his primary care physician for a referral to endocrinology. It is still in process. Qualifiers: Chronicity: acute Pancreatitis type: unspecified pancreatitis type Acute pancreatitis complication: unspecified Qualified Code(s): K85.90 - Acute pancreatitis without necrosis or infection, unspecified (2) Hypertriglyceridemia Conclusion/Plan: Currently on Lopid 600 mg twice daily and omega-3 fatty acids. Current triglyceride was greater than 1000 He has a family history of familial hypertriglyceridemia. His father has had multiple bouts of pancreatitis secondary to elevated triglyceride levels. And endocrine referral is in process. (3) Hypertension Conclusion/Plan: Hydralazine 10 mg IV every 4 hours as needed for systolic blood pressure greater than 160 - Lab Results Fish Bones: 08/15/21 08:10 08/15/21 08:10 Core Measures - Anticipated LOS I expect patient to be DC'd or transferred within 96 hours.: Yes - DVT/VTE - Prophylaxis VTE/DVT Device ordered at admit?: Yes
[2021-08-15] MEDS ORDERED: DEXTROSE 5%-0.9% NACL 1,000 ML IV SCH ×2 (11:00)
[2021-08-15] MEDS ORDERED: hydrALAZINE INJ 20 MG/ML VIAL IVP PRN (11:30)
[2021-08-15] MEDS: HYDROmorphone 1 MG/ML CARPUJECT IVP PRN ×3 (11:35→15:27)
[2021-08-15] MEDS: D5NS W/20 MEQ KCL 1,000 ML IV SCH ×3 (11:37→23:07)
[2021-08-15] MEDS: oxyCODONE 5 MG TABLET PO PRN ×2 (11:42→17:23)
[2021-08-15] MEDS: ACETAMINOPHEN 325 MG TABLET PO PRN (14:42)
[2021-08-15] MEDS ORDERED: IOVERSOL 320 100 ML VIAL IVP ONE ×2 (16:36→18:20)
--- NOTE | 2021-08-15 17:06 | CT Report ---
PROCEDURE: CT abdomen and pelvis with contrast INDICATIONS: epigastric pain CONTRAST: IV CONTRAST: Optiray 320 ml: 100 PO CONTRAST: *NO PO CONTRAST TECHNIQUE: After the administration of contrast, 5 mm thick sections acquired from the diaphragms to the sym physis. 5 mm thick coronal and sagittal reformats were acquired. For radiation dose reduction, the following was used: automated exposure control, adjustment of mA and/or kV according to patient size . COMPARISON: 05/23/2021 FINDINGS: Image quality: Excellent. ABDOMEN: Lung bases: Lung bases are clear. Heart size is normal. Solid organs: Liver is diffusely decreased in attenuation without focal lesion. Spleen unremarkable. Gallbladder unremarkable Biliary system is non dilated. There is diffuse moderate peripancreatic in flammatory change without evidence of abscess, pseudocyst or pancreatic necrosis.. No adrenal nodule s. Kidneys demonstrate normal size and enhancement, without hydronephrosis. Peritoneum and bowel: Bowel loops demonstrate normal wall thickness and caliber. No free fluid or a ir. Nodes and vessels: No retroperitoneal or mesenteric adenopathy by size criteria. Aorta and inferior vena cava are normal in size. Miscellaneous: No ventral hernias. PELVIS: Genitourinary: Bladder wall thickness is normal. Miscellaneous: No inguinal hernias or adenopathy. Bones: No suspicious bony lesions. No vertebral body compression fractures. IMPRESSION: Recurrent acute pancreatitis. No pancreatic necrosis, pseudocyst or abscess. Hepatic fatty infiltration Reviewed by: Alec Issa MD on 08/15/2021 4:05 PM AKST Approved by: Alec Issa MD on 08/15/2021 4:05 PM [place] Station ID: [id number]
[2021-08-15] MEDS ORDERED: HYDROmorphone PCA 20MG/100ML IV PRN ×2 (17:10→19:58)
[2021-08-15] MEDS: gemfibroziL 600 MG TABLET PO SCH (17:44)
[2021-08-15] MEDS: SODIUM CHLORIDE FLUSH 0.9% 10 ML SYRINGE IVP SCH (17:44)
[2021-08-15 17:49] LABS: CALCIUM 8.4 mg/dL (8.5-10.3); CREATININE 0.7 mg/dL (0.6-1.2); POTASSIUM 3.4 mmol/L (3.5-5.0)
[2021-08-15 20:11] LABS: CALCIUM, IONIZED 1.11 mmol/L (1.15-1.33); VBG PH 7.393 (7.31-7.41)
[2021-08-15] MEDS: POTASSIUM CHLOR 10 MEQ/100 ML 10 MEQ/100 ML BAG IV SCH ×3 (20:30→23:56)
[2021-08-15] MEDS ORDERED: NIACIN ER 500 MG TABLET PO SCH (21:00)
[2021-08-15] MEDS: OMEGA-3 ACID ETHYL ESTERS 1 GM CAPSULE PO SCH (21:25)
[2021-08-15] MEDS: CALCIUM CARBONATE CHEW 500 MG TABLET PO SCH (23:09)
[2021-08-16] MEDS: POTASSIUM CHLOR 10 MEQ/100 ML 10 MEQ/100 ML BAG IV SCH ×3 (01:09→09:57)
[2021-08-16] MEDS: CALCIUM CARBONATE CHEW 500 MG TABLET PO SCH (02:30)
[2021-08-16] MEDS: ONDANSETRON 4 MG/2 ML VIAL IVP PRN ×2 (03:17→14:13)
[2021-08-16] MEDS: D5NS W/20 MEQ KCL 1,000 ML IV SCH ×4 (04:56→22:25)
[2021-08-16 05:22] LABS: BASOPHILS % (AUTO) 0.4 %; EOSINOPHILS # (AUTO) 0.2 10^3/uL (0.0-0.7); EOSINOPHILS % (AUTO) 1.9 %; HCT - HEMATOCRIT 36.4 % (42.0-52.0); HGB - HEMOGLOBIN 12.9 g/dL (14.0-18.0); LYMPHOCYTES # (AUTO) 2.1 10^3/uL (1.5-3.5); LYMPHOCYTES % (AUTO) 18.6 %; MEAN CORPUSCULAR HEMOGLOBIN 30.9 pg (27.0-31.0); MEAN CORPUSCULAR HGB CONC 35.4 g/dL (32.0-36.0); MEAN CORPUSCULAR VOLUME 87.3 fL (80.0-94.0); MEAN PLATELET VOLUME 11.5 fL (7.4-11.4); MONOCYTES # (AUTO) 0.9 10^3/uL (0.0-1.0); MONOCYTES % (AUTO) 8.2 %; NEUTROPHILS # (AUTO) 8.1 10^3/uL (1.5-6.6); NEUTROPHILS % (AUTO) 70.6 %; PLT - PLATELET COUNT 198 10^3/uL (130-450); RED BLOOD COUNT 4.17 10^6/uL (4.70-6.10); RED CELL DISTRIBUTION WIDTH 12.6 % (12.0-15.0); WHITE BLOOD COUNT 11.4 x10^3/uL (4.8-10.8)
[2021-08-16 05:32] LABS: ALBUMIN 3.6 g/dL (3.2-5.5); ALBUMIN/GLOBULIN RATIO 1.2 (1.0-2.2); BILIRUBIN,TOTAL 1.2 mg/dL (0.2-1.0); CREATININE 0.6 mg/dL (0.6-1.2); POTASSIUM 3.8 mmol/L (3.5-5.0); TOTAL PROTEIN 6.6 g/dL (6.7-8.2)
[2021-08-16 05:38] LABS: CHOL/HDL RATIO 10.8 (<5.0); CHOLESTEROL 249 mg/dL; HDL CHOLESTEROL 23 mg/dL; TRIGLYCERIDES 997 mg/dL
[2021-08-16 06:03] LABS: LDL CHOLESTEROL,DIRECT 33 mg/dL; LDLD/HDL RATIO 1.4 (<3.6)
[2021-08-16] MEDS: PANTOPRAZOLE 40 MG VIAL IVP SCH (07:09)
[2021-08-16] MEDS: gemfibroziL 600 MG TABLET PO SCH ×2 (07:09→15:35)
[2021-08-16] MEDS: SODIUM CHLORIDE FLUSH 0.9% 10 ML SYRINGE IVP SCH ×3 (07:09→17:08)
--- NOTE | 2021-08-16 07:45 | PROVIDER PROGRESS NOTE ---
Assessment/Plan - Problem List (1) Pancreatitis Qualifiers: Chronicity: acute Pancreatitis type: unspecified pancreatitis type Acute pancreatitis complication: unspecified Qualified Code(s): K85.90 - Acute pancreatitis without necrosis or infection, unspecified Assessment/Plan: Continue insulin drip at 1 unit/h. On D5 plus normal saline at 175 mL/h. Triglyceride level this morning was 997. We will continue monitoring daily. 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 Lipase improved from 624 down to 106. (2) Hypertriglyceridemia Assessment/Plan: Triglyceride this morning was 997. On Lopid 600 mg p.o. twice daily [place]-3 fatty acid and Niaspan 500 mg every afternoon. We will continue to monitor triglyceride level while patient is on insulin drip. (3) Hypertension Assessment/Plan: Hydralazine 10 mg IV every 4 hours as needed for systolic blood pressure greater than 160. - Current Meds Current Meds: Current Medications Generic Name Dose Route Start Last Admin Trade Name Freq PRN Reason Stop Dose Admin Acetaminophen 650 mg 08/15/21 10:24 08/15/21 14:42 Acetaminophen 325 Mg Tablet PO 650 mg Q4HR PRN Administration Pain 1 to 4 Gemfibrozil 600 mg 08/15/21 16:00 08/16/21 07:09 Gemfibrozil 600 Mg Tablet PO 600 mg BIDAC TRISHA Administration Potassium Chloride/Dextrose/Sod Cl 1,000 mls @ 175 mls/hr 08/15/21 12:00 08/16/21 04:56 D5ns W/20 Meq Kcl IV 175 mls/hr .[id number] TRISHA Administration [id number] Ethyl Esters 2 gm 08/15/21 21:00 08/15/21 21:25 [place]-3 Acid Ethyl Esters 1 Gm Capsule PO Not Given BID TRISHA Ondansetron HCl 4 mg 08/15/21 10:24 08/16/21 03:17 Ondansetron 4 Mg/2 Ml Vial IVP 4 mg Q6HR PRN Administration Nausea / Vomiting Oxycodone HCl 5 mg 08/15/21 10:24 08/15/21 17:23 Oxycodone 5 Mg Tablet PO 5 mg Q4HR PRN Administration Pain 5 to 7 Pantoprazole Sodium 40 mg 08/16/21 07:00 08/16/21 07:09 Pantoprazole 40 Mg Vial IVP 40 mg QDAC TRISHA Administration Sodium Chloride 10 ml 08/15/21 17:00 08/16/21 07:09 Sodium Chloride Flush 0.9% 10 Ml Syringe IVP 10 ml 0100,0900,1700 TRISHA Administration - Lab Result Fish Bone Diagrams: 08/16/21 04:08 08/16/21 04:08 - Additional Planning My Orders: My Active Orders 08/15/21 10:17 Activity Orders [RC] Q2HR Daily Weight [RC] 0600 IO [RC] Q1HR Initiate Bowel Care Protocol [RC] QSHIFT Initiate Flu Vaccine Screening [RC] ONCE Initiate ICU Electrolyte Prot. [RC] .protocol Initiate Line Care Protocol [RC] .protocol Initiate Personal Care Protoco [RC] .protocol Initiate Pneumonia Vaccine Scr [RC] ONCE Sodium Chloride Flush 0.9% [Normal Saline Flush 0.9%] 10 ml IVP PRN PRN Code Status [OTHERS] Routine Condition of Patient [OTHERS] Routine DVT Prophylaxis [OTHERS] Routine 08/15/21 10:24 Acetaminophen [Tylenol] 650 mg PO Q4HR PRN Ondansetron Inj [Zofran Inj] 4 mg IVP Q6HR PRN oxyCODONE [Roxicodone] 5 mg PO Q4HR PRN 08/15/21 10:25 Vital Signs [RC] Q4HR NPO except Meds [DIET] 08/15/21 10:26 SCDs [RC] QSHIFT 08/15/21 11:30 hydrALAZINE INJ [Apresoline Inj] 10 mg IVP Q4H PRN 08/15/21 12:00 D5ns W/20 Meq KCl 1,000 ml IV 175 mls/hr 08/15/21 16:00 gemfibroziL [Lopid] 600 mg PO BIDAC 08/15/21 17:00 Sodium Chloride Flush 0.9% [Normal Saline Flush 0.9%] 10 ml IVP 0100,0900,1700 08/15/21 21:00 [place]-3 Acid Ethyl Esters [Lovaza] 2 gm PO BID 08/16/21 07:00 Pantoprazole [Protonix] 40 mg IVP QDAC 08/16/21 08:00 Potassium Chlor 10 Meq/100 ml [Potassium Chloride] 10 meq in 100 ml IV Q1H 08/17/21 05:00 CBC - COMP BLD CT W/AUTO DIFF [HEME] DAILYLAB COMPREHENSIVE METABOLIC PANEL [CHEM] DAILYLAB LIPASE [CHEM] DAILYLAB LIPID Panel [CHEM] DAILYLAB 08/18/21 05:00 CBC - COMP BLD CT W/AUTO DIFF [HEME] DAILYLAB COMPREHENSIVE METABOLIC PANEL [CHEM] DAILYLAB LIPASE [CHEM] DAILYLAB LIPID Panel [CHEM] DAILYLAB 08/19/21 05:00 CBC - COMP BLD CT W/AUTO DIFF [HEME] DAILYLAB LIPASE [CHEM] DAILYLAB 08/20/21 05:00 CBC - COMP BLD CT W/AUTO DIFF [HEME] DAILYLAB LIPASE [CHEM] DAILYLAB Subjective - Subjective Patient Reports: Other (Resting comfortably in bed. Pain is managed appropriately with RETAIL BAKERY MANAGER Dilaudid pump. Reported mild nausea.) Objective Vital Signs: Vital Signs - 24 hr 08/15/21 08/15/21 08/15/21 07:57 08:22 10:57 Temperature 36.8 C Heart Rate 77 77 71 Heart Rate [ Monitoring electrodes] Respiratory 20 18 18 Rate Blood Pressure 172/114 H 168/113 H 140/98 H Blood Pressure [Right Brachial artery] O2 Saturation 98 93 94 08/15/21 08/15/21 08/15/21 10:58 11:25 13:00 Temperature 36.6 C 36.8 C Heart Rate 70 Heart Rate [ 85 76 Monitoring electrodes] Respiratory 17 11 L 11 L Rate Blood Pressure 140/98 H Blood Pressure 152/96 H 136/91 H [Right Brachial artery] O2 Saturation 94 100 97 08/15/21 08/15/21 08/15/21 14:13 15:00 17:00 Temperature 36.6 C Heart Rate Heart Rate [ 90 92 99 Monitoring electrodes] Respiratory 13 12 14 Rate Blood Pressure Blood Pressure 136/107 H 138/97 H 147/102 H [Right Brachial artery] O2 Saturation 96 95 97 08/15/21 08/15/21 08/15/21 18:00 19:00 19:39 Temperature Heart Rate Heart Rate [ 100 Monitoring electrodes] Respiratory 13 15 14 Rate Blood Pressure Blood Pressure 136/84 H [Right Brachial artery] O2 Saturation 98 08/15/21 08/15/21 08/15/21 20:50 21:00 22:00 Temperature 36.7 C Heart Rate Heart Rate [ 97 Monitoring electrodes] Respiratory 21 13 13 Rate Blood Pressure Blood Pressure 127/88 H [Right Brachial artery] O2 Saturation 96 08/15/21 08/15/21 08/16/21 23:00 23:57 01:00 Temperature Heart Rate Heart Rate [ 98 Monitoring electrodes] Respiratory 18 14 18 Rate Blood Pressure Blood Pressure 125/80 [Right Brachial artery] O2 Saturation 93 08/16/21 08/16/21 08/16/21 03:00 04:00 06:00 Temperature Heart Rate Heart Rate [ 86 Monitoring electrodes] Respiratory 16 12 12 Rate Blood Pressure Blood Pressure 138/86 H [Right Brachial artery] O2 Saturation 94 Oxygen O2 Source Room air I&O (Last 24 Hrs): Intake and Output Totals x24h 08/14/21 08/15/21 08/16/21 23:59 23:59 23:59 Intake Total 4677.168 1628.433 Output Total 300 1500 Balance 4377.168 128.433 General: Alert, Oriented x3, Mild distress HEENT: PERRLA, EOMI Neck: Supple, No JVD Neuro: Alert, Oriented Times 3 Cardiovascular: Regular rate Respiratory: Chest non-tender, No respiratory distress, Breath sounds nml Abdomen: Normal bowel sounds, Soft, No tenderness, No masses Extremities: No clubbing, No cyanosis, No edema, No tenderness/swelling Skin: No rashes, No breakdown - Results Results: Laboratory Results WBC 11.4 x10^3/uL (4.8-10.8) H 08/16/21 04:08 RBC 4.17 10^6/uL (4.70-6.10) L 08/16/21 04:08 Hgb 12.9 g/dL (14.0-18.0) L 08/16/21 04:08 Hct 36.4 % (42.0-52.0) L 08/16/21 04:08 MCV 87.3 fL (80.0-94.0) 08/16/21 04:08 MCH 30.9 pg (27.0-31.0) 08/16/21 04:08 MCHC 35.4 g/dL (32.0-36.0) 08/16/21 04:08 RDW 12.6 % (12.0-15.0) 08/16/21 04:08 Plt Count 198 10^3/uL (130-450) 08/16/21 04:08 MPV 11.5 fL (7.4-11.4) H 08/16/21 04:08 Neut # (Auto) 8.1 10^3/uL (1.5-6.6) H 08/16/21 04:08 Lymph # (Auto) 2.1 10^3/uL (1.5-3.5) 08/16/21 04:08 [place] # (Auto) 0.9 10^3/uL (0.0-1.0) 08/16/21 04:08 Eos # (Auto) 0.2 10^3/uL (0.0-0.7) 08/16/21 04:08 Baso # (Auto) 0.0 10^3/uL (0.0-0.1) 08/16/21 04:08 Absolute Nucleated RBC 0.00 x10^3/uL 08/16/21 04:08 Nucleated RBC % 0.0 /100WBC 08/16/21 04:08 VBG pH 7.393 (7.31-7.41) 08/15/21 20:02 Ionized Calcium 1.11 mmol/L (1.15-1.33) L 08/15/21 20:02 Sodium 133 mmol/L (135-145) L 08/16/21 04:08 Potassium 3.8 mmol/L (3.5-5.0) 08/16/21 04:08 Chloride 101 mmol/L (101-111) 08/16/21 04:08 Carbon Dioxide 24 mmol/L (21-32) 08/16/21 04:08 Anion Gap 8.0 (6-13) 08/16/21 04:08 BUN 6 mg/dL (6-20) 08/16/21 04:08 Creatinine 0.6 mg/dL (0.6-1.2) 08/16/21 04:08 Estimated GFR (MDRD) 148 (>89) 08/16/21 04:08 Glucose 142 mg/dL (70-100) H 08/16/21 04:08 POC Whole Bld Glucose 114 mg/dL (70 - 100) H 08/16/21 07:17 Calcium 9.0 mg/dL (8.5-10.3) 08/16/21 04:08 Total Bilirubin 1.2 mg/dL (0.2-1.0) H 08/16/21 04:08 AST 16 IU/L (10-42) 08/16/21 04:08 ALT 20 IU/L (10-60) 08/16/21 04:08 Alkaline Phosphatase 54 IU/L (42-121) 08/16/21 04:08 Total Protein 6.6 g/dL (6.7-8.2) L 08/16/21 04:08 Albumin 3.6 g/dL (3.2-5.5) 08/16/21 04:08 Globulin 3.0 g/dL (2.1-4.2) 08/16/21 04:08 Albumin/Globulin Ratio 1.2 (1.0-2.2) 08/16/21 04:08 Triglycerides 997 mg/dL (-149) H 08/16/21 04:08 Cholesterol 249 mg/dL (-199) H 08/16/21 04:08 LDL Cholesterol Direct 33 mg/dL (-129) 08/16/21 04:08 LDL Cholesterol, Calc Not Reportable 08/16/21 04:08 VLDL Cholesterol Not Reportable 08/16/21 04:08 HDL Cholesterol 23 mg/dL (60-) L 08/16/21 04:08 LDL/HDL Ratio Not Reportable 08/16/21 04:08 dLDL/HDL Ratio 1.4 (<3.6) 08/16/21 04:08 Cholesterol/HDL Ratio 10.8 (<5.0) 08/16/21 04:08 Lipase 104 U/L (22-51) H 08/16/21 04:08 Urine Color DARK YELLOW 08/15/21 09:35 Urine Clarity CLEAR (CLEAR) 08/15/21 09:35 Urine pH 5.5 PH (5.0-7.5) 08/15/21 09:35 Ur Specific [place] >=1.030 (1.002-1.030) H 08/15/21 09:35 Urine Protein NEGATIVE mg/dL (NEGATIVE) 08/15/21 09:35 Urine Glucose (UA) NEGATIVE mg/dL (NEGATIVE) 08/15/21 09:35 Urine Ketones NEGATIVE mg/dL (NEGATIVE) 08/15/21 09:35 Urine Occult Blood NEGATIVE (NEGATIVE) 08/15/21 09:35 Urine Nitrite NEGATIVE (NEGATIVE) 08/15/21 09:35 Urine Bilirubin NEGATIVE (NEGATIVE) 08/15/21 09:35 Urine Urobilinogen 0.2 (NORMAL) E.U./dL (NORMAL) 08/15/21 09:35 Ur Leukocyte Esterase NEGATIVE (NEGATIVE) 08/15/21 09:35 Ur Microscopic Review NOT INDICATED 08/15/21 09:35 Urine Culture Comments NOT INDICATED 08/15/21 09:35 Nasal Screen MRSA (PCR) NEGATIVE (NEGATIVE) 08/15/21 11:26 SARS-CoV-2 (PCR) NOT DETECTED 08/15/21 10:50 ABX Reporting Has patient been on IV antibiotics over the past 48 hours?: No
[2021-08-16] MEDS: OMEGA-3 ACID ETHYL ESTERS 1 GM CAPSULE PO SCH ×2 (09:04→21:00)
[2021-08-16] MEDS ORDERED: INSULIN REGULAR HUMAN 100 UNIT in SODIUM CHLORIDE 0.9% 100ML 99 ML IV ONE (10:14)
[2021-08-16] MEDS: ACETAMINOPHEN 325 MG TABLET PO PRN ×2 (17:19→21:16)
[2021-08-16] MEDS: oxyCODONE 5 MG TABLET PO PRN ×2 (18:08→22:22)
[2021-08-17] MEDS: SODIUM CHLORIDE FLUSH 0.9% 10 ML SYRINGE IVP SCH ×4 (00:55→22:52)
[2021-08-17] MEDS: oxyCODONE 5 MG TABLET PO PRN ×5 (04:03→22:44)
[2021-08-17] MEDS: D5NS W/20 MEQ KCL 1,000 ML IV SCH ×4 (04:04→22:43)
[2021-08-17] MEDS: SODIUM CHLORIDE FLUSH 0.9% 10 ML SYRINGE IVP PRN ×3 (04:30→17:50)
[2021-08-17] MEDS: ONDANSETRON 4 MG/2 ML VIAL IVP PRN ×2 (04:30→17:48)
[2021-08-17 05:08] LABS: BASOPHILS % (AUTO) 0.5 %; EOSINOPHILS # (AUTO) 0.3 10^3/uL (0.0-0.7); HGB - HEMOGLOBIN 12.5 g/dL (14.0-18.0); LYMPHOCYTES # (AUTO) 2.1 10^3/uL (1.5-3.5); LYMPHOCYTES % (AUTO) 32.4 %; MEAN CORPUSCULAR HEMOGLOBIN 30.3 pg (27.0-31.0); MEAN CORPUSCULAR HGB CONC 33.8 g/dL (32.0-36.0); MEAN CORPUSCULAR VOLUME 89.6 fL (80.0-94.0); MEAN PLATELET VOLUME 11.3 fL (7.4-11.4); MONOCYTES # (AUTO) 0.5 10^3/uL (0.0-1.0); NEUTROPHILS # (AUTO) 3.4 10^3/uL (1.5-6.6); NEUTROPHILS % (AUTO) 53.8 %; PLT - PLATELET COUNT 197 10^3/uL (130-450); RED BLOOD COUNT 4.13 10^6/uL (4.70-6.10); WHITE BLOOD COUNT 6.4 x10^3/uL (4.8-10.8)
[2021-08-17 05:22] LABS: MAGNESIUM 1.9 mg/dL (1.7-2.8); PHOSPHORUS 3.6 mg/dL (2.5-4.6)
[2021-08-17 05:25] LABS: ALBUMIN 3.6 g/dL (3.2-5.5); ALBUMIN/GLOBULIN RATIO 1.2 (1.0-2.2); BILIRUBIN,TOTAL 0.4 mg/dL (0.2-1.0); CALCIUM 8.8 mg/dL (8.5-10.3); CREATININE 0.7 mg/dL (0.6-1.2); POTASSIUM 3.7 mmol/L (3.5-5.0); TOTAL PROTEIN 6.7 g/dL (6.7-8.2)
[2021-08-17 05:26] LABS: CHOL/HDL RATIO 8.2 (<5.0); CHOLESTEROL 213 mg/dL; HDL CHOLESTEROL 26 mg/dL; TRIGLYCERIDES 603 mg/dL
[2021-08-17 06:01] LABS: LDL CHOLESTEROL,DIRECT 58 mg/dL; LDLD/HDL RATIO 2.2 (<3.6)
[2021-08-17] MEDS: gemfibroziL 600 MG TABLET PO SCH ×2 (06:45→16:13)
[2021-08-17] MEDS: PANTOPRAZOLE 40 MG VIAL IVP SCH (06:45)
[2021-08-17] MEDS ORDERED: POTASSIUM CHLORIDE 20 MEQ TABLET PO ONE ×2 (07:00→14:11)
[2021-08-17] MEDS ORDERED: POTASSIUM CHLORIDE 20 MEQ/15 ML UDC PO ONE (07:00)
--- NOTE | 2021-08-17 07:56 | PROVIDER PROGRESS NOTE ---
Assessment/Plan - Problem List (1) Pancreatitis Qualifiers: Chronicity: acute Pancreatitis type: unspecified pancreatitis type Acute pancreatitis complication: unspecified Qualified Code(s): K85.90 - Acute pancreatitis without necrosis or infection, unspecified Assessment/Plan: Continue insulin drip at 1 unit/h. On D5 plus normal saline at 175 mL/h. Triglyceride level this morning was 603. We will continue monitoring daily. Will discontinue insulin drip when triglyceride is less than 500. Anticipating this will be the case on 08/18/2021. We will advance diet as tolerated on 08/18/2021. Patient is on Dilaudid FINISH CLEANER pump for pain. Lipase is 62. (2) Hypertriglyceridemia Assessment/Plan: Triglyceride this morning was 603. On Lopid 600 mg p.o. twice daily [place]-3 fatty acid every afternoon. We will continue to monitor triglyceride level while patient is on insulin drip. (3) Hypertension Assessment/Plan: Hydralazine 10 mg IV every 4 hours as needed for systolic blood pressure greater than 160. - Current Meds Current Meds: Current Medications Generic Name Dose Route Start Last Admin Trade Name Freq PRN Reason Stop Dose Admin Acetaminophen 650 mg 08/15/21 10:24 08/16/21 21:16 Acetaminophen 325 Mg Tablet PO 650 mg Q4HR PRN Administration Pain 1 to 4 Gemfibrozil 600 mg 08/15/21 16:00 08/17/21 06:45 Gemfibrozil 600 Mg Tablet PO 600 mg BIDAC TRISHA Administration Hydromorphone HCl 20 mg 08/15/21 19:58 08/16/21 15:36 Hydromorphone Developmental Training Counselor 20mg/100ml IV 20 mg PRN PRN Administration Abdominal Pain Protocol Potassium Chloride/Dextrose/Sod Cl 1,000 mls @ 175 mls/hr 08/15/21 12:00 08/17/21 06:00 D5ns W/20 Meq Kcl IV 175 mls/hr .Q5H43M TRISHA Infusion Insulin Human Regular 100 unit 100 mls @ 1 mls/hr 08/16/21 10:14 08/17/21 07:26 / Sodium Chloride IV 08/19/21 10:13 1 unit/hr .Q72H ONE 1 mls/hr Titration Protocol 1 UNIT/HR [id number]-7-Tlpo Ethyl Esters 2 gm 08/15/21 21:00 08/16/21 21:00 [place]-3 Acid Ethyl Esters 1 Gm Capsule PO 2 gm BID TRISHA Administration Ondansetron HCl 4 mg 08/15/21 10:24 08/17/21 04:30 Ondansetron 4 Mg/2 Ml Vial IVP 4 mg Q6HR PRN Administration Nausea / Vomiting Oxycodone HCl 5 mg 08/15/21 10:24 08/17/21 04:03 Oxycodone 5 Mg Tablet PO 5 mg Q4HR PRN Administration Pain 5 to 7 Pantoprazole Sodium 40 mg 08/16/21 07:00 08/17/21 06:45 Pantoprazole 40 Mg Vial IVP 40 mg QDAC TRISHA Administration Sodium Chloride 10 ml 08/15/21 17:00 08/17/21 00:55 Sodium Chloride Flush 0.9% 10 Ml Syringe IVP 10 ml 0100,0900,1700 TRISHA Administration Sodium Chloride 10 ml 08/15/21 10:17 08/17/21 06:45 Sodium Chloride Flush 0.9% 10 Ml Syringe IVP 10 ml PRN PRN Administration NEEDED PER PROVIDER ORDERS - Lab Result Fish Bone Diagrams: 08/17/21 04:25 08/17/21 04:25 - Additional Planning My Orders: My Active Orders 08/16/21 07:00 Pantoprazole [Protonix] 40 mg IVP QDAC 08/16/21 10:14 Sodium Chloride 0.9% 100Ml [Normal Saline 0.9% 100Ml] 99 ml Insulin Regular Human [NovoLIN R] 100 unit IV 1 unit/hr 08/17/21 11:00 POTASSIUM [CHEM] Timed 08/18/21 05:00 CBC - COMP BLD CT W/AUTO DIFF [HEME] DAILYLAB COMPREHENSIVE METABOLIC PANEL [CHEM] DAILYLAB LIPASE [CHEM] DAILYLAB LIPID Panel [CHEM] DAILYLAB MAGNESIUM [CHEM] DAILYLAB PHOSPHORUS [CHEM] DAILYLAB 08/19/21 05:00 CBC - COMP BLD CT W/AUTO DIFF [HEME] DAILYLAB LIPASE [CHEM] DAILYLAB MAGNESIUM [CHEM] DAILYLAB PHOSPHORUS [CHEM] DAILYLAB 08/20/21 05:00 CBC - COMP BLD CT W/AUTO DIFF [HEME] DAILYLAB LIPASE [CHEM] DAILYLAB Subjective - Subjective Patient Reports: Other (Resting in bed at time of exam. Rated abdominal pain 5- 6 out of 10 scale. Denied any other complaints.) Objective Vital Signs: Vital Signs - 24 hr 08/16/21 08/16/21 08/16/21 08:00 09:00 10:00 Temperature 36.7 C Heart Rate [ 94 86 89 Monitoring electrodes] Respiratory 14 14 14 Rate Blood Pressure 143/91 H 154/98 H 137/92 H [Right Brachial artery] O2 Saturation 94 94 94 08/16/21 08/16/21 08/16/21 12:00 13:00 15:53 Temperature 37.5 C Heart Rate [ 88 90 Monitoring electrodes] Respiratory 12 12 15 Rate Blood Pressure 134/86 H 150/100 H [Right Brachial artery] O2 Saturation 95 95 08/16/21 08/16/21 08/16/21 17:00 18:00 18:52 Temperature 37.2 C Heart Rate [ 95 90 Monitoring electrodes] Respiratory 12 15 12 Rate Blood Pressure 152/89 H 143/89 H [Right Brachial artery] O2 Saturation 92 94 08/16/21 08/16/21 08/16/21 20:00 20:10 22:30 Temperature 37.2 C Heart Rate [ 10 L Monitoring electrodes] Respiratory 10 L 92 H 12 Rate Blood Pressure 135/94 H [Right Brachial artery] O2 Saturation 12 L 08/17/21 08/17/21 08/17/21 00:52 01:00 03:00 Temperature 36.8 C Heart Rate [ 78 Monitoring electrodes] Respiratory 10 L 10 L 12 Rate Blood Pressure 144/88 H [Right Brachial artery] O2 Saturation 96 08/17/21 08/17/21 08/17/21 04:00 04:50 06:58 Temperature 36.8 C Heart Rate [ 78 Monitoring electrodes] Respiratory 12 12 16 Rate Blood Pressure 133/86 H [Right Brachial artery] O2 Saturation 98 Oxygen O2 Source Room air I&O (Last 24 Hrs): Intake and Output Totals x24h 08/15/21 08/16/21 08/17/21 23:59 23:59 23:59 Intake Total 4677.168 5711.333 1686.033 Output Total 300 5500 2400 Balance 4377.168 211.333 -773.187 Comments/Notes: General: Alert, Oriented x3, Mild distress HEENT: PERRLA, EOMI Neck: Supple, No JVD Neuro: Alert, Oriented Times 3 Cardiovascular: Regular rate Respiratory: Chest non-tender, No respiratory distress, Breath sounds nml Abdomen: Normal bowel sounds, Soft, No tenderness, No masses Extremities: No clubbing, No cyanosis, No edema, No tenderness/swelling Skin: No rashes, No breakdown - Results Results: Laboratory Results WBC 6.4 x10^3/uL (4.8-10.8) 08/17/21 04:25 RBC 4.13 10^6/uL (4.70-6.10) L 08/17/21 04:25 Hgb 12.5 g/dL (14.0-18.0) L 08/17/21 04:25 Hct 37.0 % (42.0-52.0) L 08/17/21 04:25 MCV 89.6 fL (80.0-94.0) 08/17/21 04:25 MCH 30.3 pg (27.0-31.0) 08/17/21 04:25 MCHC 33.8 g/dL (32.0-36.0) 08/17/21 04:25 RDW 13.0 % (12.0-15.0) 08/17/21 04:25 Plt Count 197 10^3/uL (130-450) 08/17/21 04:25 MPV 11.3 fL (7.4-11.4) 08/17/21 04:25 Neut # (Auto) 3.4 10^3/uL (1.5-6.6) 08/17/21 04:25 Lymph # (Auto) 2.1 10^3/uL (1.5-3.5) 08/17/21 04:25 [place] # (Auto) 0.5 10^3/uL (0.0-1.0) 08/17/21 04:25 Eos # (Auto) 0.3 10^3/uL (0.0-0.7) 08/17/21 04:25 Baso # (Auto) 0.0 10^3/uL (0.0-0.1) 08/17/21 04:25 Absolute Nucleated RBC 0.00 x10^3/uL 08/17/21 04:25 Nucleated RBC % 0.0 /100WBC 08/17/21 04:25 VBG pH 7.393 (7.31-7.41) 08/15/21 20:02 Ionized Calcium 1.11 mmol/L (1.15-1.33) L 08/15/21 20:02 Sodium 134 mmol/L (135-145) L 08/17/21 04:25 Potassium 3.7 mmol/L (3.5-5.0) 08/17/21 04:25 Chloride 98 mmol/L (101-111) L 08/17/21 04:25 Carbon Dioxide 26 mmol/L (21-32) 08/17/21 04:25 Anion Gap 10.0 (6-13) 08/17/21 04:25 BUN 5 mg/dL (6-20) L 08/17/21 04:25 Creatinine 0.7 mg/dL (0.6-1.2) 08/17/21 04:25 Estimated GFR (MDRD) 124 (>89) 08/17/21 04:25 Glucose 124 mg/dL (70-100) H 08/17/21 04:25 POC Whole Bld Glucose 145 mg/dL (70 - 100) H 08/17/21 06:50 Calcium 8.8 mg/dL (8.5-10.3) 08/17/21 04:25 Phosphorus 3.6 mg/dL (2.5-4.6) 08/17/21 04:25 Magnesium 1.9 mg/dL (1.7-2.8) 08/17/21 04:25 Total Bilirubin 0.4 mg/dL (0.2-1.0) 08/17/21 04:25 AST 27 IU/L (10-42) 08/17/21 04:25 ALT 28 IU/L (10-60) 08/17/21 04:25 Alkaline Phosphatase 49 IU/L (42-121) 08/17/21 04:25 Total Protein 6.7 g/dL (6.7-8.2) 08/17/21 04:25 Albumin 3.6 g/dL (3.2-5.5) 08/17/21 04:25 Globulin 3.1 g/dL (2.1-4.2) 08/17/21 04:25 Albumin/Globulin Ratio 1.2 (1.0-2.2) 08/17/21 04:25 Triglycerides 603 mg/dL (-149) H 08/17/21 04:25 Cholesterol 213 mg/dL (-199) H 08/17/21 04:25 LDL Cholesterol Direct 58 mg/dL (-129) 08/17/21 04:25 LDL Cholesterol, Calc Not Reportable 08/17/21 04:25 VLDL Cholesterol Not Reportable 08/17/21 04:25 HDL Cholesterol 26 mg/dL (60-) L 08/17/21 04:25 LDL/HDL Ratio Not Reportable 08/17/21 04:25 dLDL/HDL Ratio 2.2 (<3.6) 08/17/21 04:25 Cholesterol/HDL Ratio 8.2 (<5.0) 08/17/21 04:25 Lipase 62 U/L (22-51) H 08/17/21 04:25 Urine Color DARK YELLOW 08/15/21 09:35 Urine Clarity CLEAR (CLEAR) 08/15/21 09:35 Urine pH 5.5 PH (5.0-7.5) 08/15/21 09:35 Ur Specific [place] >=1.030 (1.002-1.030) H 08/15/21 09:35 Urine Protein NEGATIVE mg/dL (NEGATIVE) 08/15/21 09:35 Urine Glucose (UA) NEGATIVE mg/dL (NEGATIVE) 08/15/21 09:35 Urine Ketones NEGATIVE mg/dL (NEGATIVE) 08/15/21 09:35 Urine Occult Blood NEGATIVE (NEGATIVE) 08/15/21 09:35 Urine Nitrite NEGATIVE (NEGATIVE) 08/15/21 09:35 Urine Bilirubin NEGATIVE (NEGATIVE) 08/15/21 09:35 Urine Urobilinogen 0.2 (NORMAL) E.U./dL (NORMAL) 08/15/21 09:35 Ur Leukocyte Esterase NEGATIVE (NEGATIVE) 08/15/21 09:35 Ur Microscopic Review NOT INDICATED 08/15/21 09:35 Urine Culture Comments NOT INDICATED 08/15/21 09:35 Nasal Screen MRSA (PCR) NEGATIVE (NEGATIVE) 08/15/21 11:26 SARS-CoV-2 (PCR) NOT DETECTED 08/15/21 10:50 ABX Reporting Has patient been on IV antibiotics over the past 48 hours?: No
[2021-08-17] MEDS: ACETAMINOPHEN 325 MG TABLET PO PRN ×3 (08:26→21:28)
[2021-08-17] MEDS: OMEGA-3 ACID ETHYL ESTERS 1 GM CAPSULE PO SCH ×2 (08:34→21:28)
[2021-08-17] MEDS ORDERED: INSULIN REGULAR HUMAN 100 UNIT in SODIUM CHLORIDE 0.9% 100ML 99 ML IV SCH ×2 (08:58→09:07)
[2021-08-17] MEDS ORDERED: polyethylene glycoL 3350 17 GM PACKET PO SCH (09:00)
[2021-08-17] MEDS: INSULIN REGULAR HUMAN 100 UNIT in SODIUM CHLORIDE 0.9% 100ML 99 ML IV SCH (11:03)
[2021-08-17] MEDS: polyethylene glycoL 3350 17 GM PACKET PO SCH (14:38)
[2021-08-17] MEDS: HYDROmorphone 1 MG/ML CARPUJECT IVP PRN ×2 (17:43→21:28)
[2021-08-18] MEDS: HYDROmorphone 1 MG/ML CARPUJECT IVP PRN ×9 (01:02→20:54)
[2021-08-18] MEDS: SODIUM CHLORIDE FLUSH 0.9% 10 ML SYRINGE IVP PRN ×3 (01:03→18:30)
[2021-08-18] MEDS: oxyCODONE 5 MG TABLET PO PRN ×5 (04:22→20:53)
[2021-08-18 04:27] LABS: BASOPHILS % (AUTO) 0.4 %; EOSINOPHILS # (AUTO) 0.3 10^3/uL (0.0-0.7); EOSINOPHILS % (AUTO) 6.7 %; HCT - HEMATOCRIT 37.1 % (42.0-52.0); HGB - HEMOGLOBIN 12.7 g/dL (14.0-18.0); LYMPHOCYTES # (AUTO) 1.8 10^3/uL (1.5-3.5); LYMPHOCYTES % (AUTO) 39.5 %; MEAN CORPUSCULAR HEMOGLOBIN 30.5 pg (27.0-31.0); MEAN CORPUSCULAR HGB CONC 34.2 g/dL (32.0-36.0); MEAN PLATELET VOLUME 10.8 fL (7.4-11.4); MONOCYTES # (AUTO) 0.4 10^3/uL (0.0-1.0); MONOCYTES % (AUTO) 9.3 %; NEUTROPHILS % (AUTO) 43.9 %; PLT - PLATELET COUNT 209 10^3/uL (130-450); RED BLOOD COUNT 4.17 10^6/uL (4.70-6.10); RED CELL DISTRIBUTION WIDTH 12.4 % (12.0-15.0); WHITE BLOOD COUNT 4.6 x10^3/uL (4.8-10.8)
[2021-08-18] MEDS: D5NS W/20 MEQ KCL 1,000 ML IV SCH ×4 (04:34→21:13)
[2021-08-18 04:45] LABS: ALBUMIN 3.6 g/dL (3.2-5.5); ALBUMIN/GLOBULIN RATIO 1.1 (1.0-2.2); ALKALINE PHOSPHATASE 53 IU/L (42-121); ALT ALANINE AMINOTRANSFERASE 30 IU/L (10-60); AST ASPARTATE AMINOTRANSFERASE 24 IU/L (10-42); BILIRUBIN,TOTAL 0.8 mg/dL (0.2-1.0); BUN - BLOOD UREA NITROGEN < 5 mg/dL (6-20); CALCIUM 9.2 mg/dL (8.5-10.3); CARBON DIOXIDE - CO2 27 mmol/L (21-32); CHLORIDE 102 mmol/L (101-111); CREATININE 0.7 mg/dL (0.6-1.2); GFR - MDRD 124 (>89); GLUCOSE 127 mg/dL (70-100); LIPASE 67 U/L (22-51); POTASSIUM 4.3 mmol/L (3.5-5.0); SODIUM 138 mmol/L (135-145); TOTAL PROTEIN 6.8 g/dL (6.7-8.2)
[2021-08-18 04:47] LABS: CHOL/HDL RATIO 8.8 (<5.0); CHOLESTEROL 220 mg/dL; HDL CHOLESTEROL 25 mg/dL; PHOSPHORUS 3.9 mg/dL (2.5-4.6); TRIGLYCERIDES 495 mg/dL
[2021-08-18 05:08] LABS: LDL CHOLESTEROL,DIRECT 88 mg/dL; LDLD/HDL RATIO 3.5 (<3.6)
[2021-08-18] MEDS: gemfibroziL 600 MG TABLET PO SCH ×2 (06:31→16:31)
[2021-08-18] MEDS: PANTOPRAZOLE 40 MG VIAL IVP SCH (06:31)
--- NOTE | 2021-08-18 07:25 | PROVIDER PROGRESS NOTE ---
Assessment/Plan - Problem List (1) Pancreatitis Qualifiers: Chronicity: acute Pancreatitis type: unspecified pancreatitis type Acute pancreatitis complication: unspecified Qualified Code(s): K85.90 - Acute pancreatitis without necrosis or infection, unspecified Assessment/Plan: Continue insulin drip at 1 unit/h. On D5 plus normal saline at 175 mL/h. Triglyceride level this morning was 495. We will continue monitoring daily. Anticipate discontinuing insulin on on 08/19/2021. Advance diet as tolerated on 08/18/2021. Dilaudid GENERAL LABORER pump discontinue. Dilaudid 1mg q2hrs prn and oxycodone 7.5mg q4 hrs prn ordered. Lipase is 62. (2) Hypertriglyceridemia Assessment/Plan: Triglyceride this morning was 495. On Lopid 600 mg p.o. twice daily [place]-3 fatty acid every afternoon. We will continue to monitor triglyceride level while patient is on insulin drip. (3) Hypertension Assessment/Plan: Hydralazine 10 mg IV every 4 hours as needed for systolic blood pressure greater than 160. - Current Meds Current Meds: Current Medications Generic Name Dose Route Start Last Admin Trade Name Freq PRN Reason Stop Dose Admin Acetaminophen 650 mg 08/15/21 10:24 08/17/21 21:28 Acetaminophen 325 Mg Tablet PO 650 mg Q4HR PRN Administration Pain 1 to 4 Gemfibrozil 600 mg 08/15/21 16:00 08/18/21 06:31 Gemfibrozil 600 Mg Tablet PO 600 mg BIDAC TRISHA Administration Hydromorphone HCl 20 mg 08/15/21 19:58 08/16/21 15:36 Hydromorphone Soiled Linen Distributor 20mg/100ml IV 20 mg PRN PRN Administration Abdominal Pain Protocol Hydromorphone HCl 1 mg 08/17/21 14:59 08/18/21 06:09 Hydromorphone 1 Mg/Ml Carpuject IVP 1 mg Q2HR PRN Administration PAIN Potassium Chloride/Dextrose/Sod Cl 1,000 mls @ 175 mls/hr 08/15/21 12:00 08/18/21 04:34 D5ns W/20 Meq Kcl IV 175 mls/hr .Q5H43M TRISHA Administration Insulin Human Regular 100 unit 100 mls @ 1 mls/hr 08/17/21 11:00 08/18/21 03:00 / Sodium Chloride IV 1 unit/hr .Q72H TRISHA 1 mls/hr Titration Protocol 1 UNIT/HR [place]-0-[place] Ethyl Esters 2 gm 08/15/21 21:00 08/17/21 21:28 [place]-3 Acid Ethyl Esters 1 Gm Capsule PO 2 gm BID TRISHA Administration Ondansetron HCl 4 mg 08/15/21 10:24 08/17/21 17:48 Ondansetron 4 Mg/2 Ml Vial IVP 4 mg Q6HR PRN Administration Nausea / Vomiting Oxycodone HCl 7.5 mg 08/17/21 15:00 08/18/21 04:22 Oxycodone 5 Mg Tablet PO 7.5 mg Q4HR PRN Administration Pain 5 to 7 Pantoprazole Sodium 40 mg 08/16/21 07:00 08/18/21 06:31 Pantoprazole 40 Mg Vial IVP 40 mg QDAC TRISHA Administration Polyethylene Glycol 17 gm 08/17/21 14:30 08/17/21 14:38 Polyethylene Glycol 3350 17 Gm Packet PO 17 gm DAILY TRISHA Administration Sodium Chloride 10 ml 08/15/21 17:00 08/17/21 22:52 Sodium Chloride Flush 0.9% 10 Ml Syringe IVP 10 ml 0100,0900,1700 TRISHA Administration Sodium Chloride 10 ml 08/15/21 10:17 08/18/21 06:32 Sodium Chloride Flush 0.9% 10 Ml Syringe IVP 10 ml PRN PRN Administration NEEDED PER PROVIDER ORDERS - Lab Result Fish Bone Diagrams: 08/18/21 04:10 08/18/21 04:10 - Additional Planning My Orders: My Active Orders 08/17/21 11:00 Sodium Chloride 0.9% 100Ml [Normal Saline 0.9% 100Ml] 99 ml Insulin Regular Human [NovoLIN R] 100 unit IV 1 unit/hr 08/17/21 14:30 polyethylene glycoL 3350 [Miralax] 17 gm PO DAILY 08/17/21 14:59 HYDROmorphone 1MG CARP [Dilaudid 1Mg Carp] 1 mg IVP Q2HR PRN 08/17/21 15:00 oxyCODONE [Roxicodone] 7.5 mg PO Q4HR PRN 08/18/21 Breakfast Clear Liquid Diet [DIET] 08/18/21 Lunch Full Liquid Diet [DIET] 08/19/21 05:00 CBC - COMP BLD CT W/AUTO DIFF [HEME] DAILYLAB LIPASE [CHEM] DAILYLAB MAGNESIUM [CHEM] DAILYLAB PHOSPHORUS [CHEM] DAILYLAB 08/20/21 05:00 CBC - COMP BLD CT W/AUTO DIFF [HEME] DAILYLAB LIPASE [CHEM] DAILYLAB Subjective - Subjective Patient Reports: Other (Resting in bed at time of exam. Rated abdominal pain 5- 6 out of 10 scale. Denied any other complaints.) Objective Vital Signs: Vital Signs - 24 hr 08/17/21 08/17/21 08/17/21 08:00 08:13 10:00 Temperature 37.1 C Heart Rate [ 76 Monitoring electrodes] Respiratory 12 12 12 Rate Blood Pressure 135/86 H [Right Brachial artery] O2 Saturation 97 08/17/21 08/17/21 08/17/21 12:00 12:14 14:00 Temperature 36.7 C Heart Rate [ 74 Monitoring electrodes] Respiratory 12 12 12 Rate Blood Pressure 130/92 H [Right Brachial artery] O2 Saturation 95 08/17/21 08/17/21 08/17/21 16:00 16:21 17:31 Temperature 37 C Heart Rate [ 81 Monitoring electrodes] Respiratory 12 11 L 12 Rate Blood Pressure 143/100 H [Right Brachial artery] O2 Saturation 96 08/17/21 08/17/21 08/18/21 18:33 21:00 01:00 Temperature 37.0 C Heart Rate [ 70 75 78 Monitoring electrodes] Respiratory 16 15 Rate Blood Pressure 138/90 H 126/85 H 131/90 H [Right Brachial artery] O2 Saturation 95 96 08/18/21 05:00 Temperature 37.2 C Heart Rate [ 75 Monitoring electrodes] Respiratory 21 Rate Blood Pressure 149/93 H [Right Brachial artery] O2 Saturation 95 Oxygen O2 Source Room air I&O (Last 24 Hrs): Intake and Output Totals x24h 08/16/21 08/17/21 08/18/21 23:59 23:59 23:59 Intake Total 5711.333 6807.900 2008.4 Output Total 5500 6037 2450 Balance 211.333 717.900 -441.6 Comments/Notes: General: Alert, Oriented x3, Mild to Moderate distress HEENT: PERRLA, EOMI Neck: Supple, No JVD Neuro: Alert, Oriented Times 3 Cardiovascular: Regular rate Respiratory: Chest non-tender, No respiratory distress, Breath sounds nml Abdomen: Normal bowel sounds, Soft, No tenderness, No masses Extremities: No clubbing, No cyanosis, No edema, No tenderness/swelling Skin: No rashes, No breakdown - Results Results: Laboratory Results WBC 4.6 x10^3/uL (4.8-10.8) L 08/18/21 04:10 RBC 4.17 10^6/uL (4.70-6.10) L 08/18/21 04:10 Hgb 12.7 g/dL (14.0-18.0) L 08/18/21 04:10 Hct 37.1 % (42.0-52.0) L 08/18/21 04:10 MCV 89.0 fL (80.0-94.0) 08/18/21 04:10 MCH 30.5 pg (27.0-31.0) 08/18/21 04:10 MCHC 34.2 g/dL (32.0-36.0) 08/18/21 04:10 RDW 12.4 % (12.0-15.0) 08/18/21 04:10 Plt Count 209 10^3/uL (130-450) 08/18/21 04:10 MPV 10.8 fL (7.4-11.4) 08/18/21 04:10 Neut # (Auto) 2.0 10^3/uL (1.5-6.6) 08/18/21 04:10 Lymph # (Auto) 1.8 10^3/uL (1.5-3.5) 08/18/21 04:10 [place] # (Auto) 0.4 10^3/uL (0.0-1.0) 08/18/21 04:10 Eos # (Auto) 0.3 10^3/uL (0.0-0.7) 08/18/21 04:10 Baso # (Auto) 0.0 10^3/uL (0.0-0.1) 08/18/21 04:10 Absolute Nucleated RBC 0.00 x10^3/uL 08/18/21 04:10 Nucleated RBC % 0.0 /100WBC 08/18/21 04:10 VBG pH 7.393 (7.31-7.41) 08/15/21 20:02 Ionized Calcium 1.11 mmol/L (1.15-1.33) L 08/15/21 20:02 Sodium 138 mmol/L (135-145) 08/18/21 04:10 Potassium 4.3 mmol/L (3.5-5.0) 08/18/21 04:10 Chloride 102 mmol/L (101-111) 08/18/21 04:10 Carbon Dioxide 27 mmol/L (21-32) 08/18/21 04:10 Anion Gap 9.0 (6-13) 08/18/21 04:10 BUN < 5 mg/dL (6-20) L 08/18/21 04:10 Creatinine 0.7 mg/dL (0.6-1.2) 08/18/21 04:10 Estimated GFR (MDRD) 124 (>89) 08/18/21 04:10 Glucose 127 mg/dL (70-100) H 08/18/21 04:10 POC Whole Bld Glucose 138 mg/dL (70 - 100) H 08/18/21 06:31 Calcium 9.2 mg/dL (8.5-10.3) 08/18/21 04:10 Phosphorus 3.9 mg/dL (2.5-4.6) 08/18/21 04:10 Magnesium 2.0 mg/dL (1.7-2.8) 08/18/21 04:10 Total Bilirubin 0.8 mg/dL (0.2-1.0) 08/18/21 04:10 AST 24 IU/L (10-42) 08/18/21 04:10 ALT 30 IU/L (10-60) 08/18/21 04:10 Alkaline Phosphatase 53 IU/L (42-121) 08/18/21 04:10 Total Protein 6.8 g/dL (6.7-8.2) 08/18/21 04:10 Albumin 3.6 g/dL (3.2-5.5) 08/18/21 04:10 Globulin 3.2 g/dL (2.1-4.2) 08/18/21 04:10 Albumin/Globulin Ratio 1.1 (1.0-2.2) 08/18/21 04:10 Triglycerides 495 mg/dL (-149) H 08/18/21 04:10 Cholesterol 220 mg/dL (-199) H 08/18/21 04:10 LDL Cholesterol Direct 88 mg/dL (-129) 08/18/21 04:10 LDL Cholesterol, Calc Not Reportable 08/18/21 04:10 VLDL Cholesterol Not Reportable 08/18/21 04:10 HDL Cholesterol 25 mg/dL (60-) L 08/18/21 04:10 LDL/HDL Ratio Not Reportable 08/18/21 04:10 dLDL/HDL Ratio 3.5 (<3.6) 08/18/21 04:10 Cholesterol/HDL Ratio 8.8 (<5.0) 08/18/21 04:10 Lipase 67 U/L (22-51) H 08/18/21 04:10 Urine Color DARK YELLOW 08/15/21 09:35 Urine Clarity CLEAR (CLEAR) 08/15/21 09:35 Urine pH 5.5 PH (5.0-7.5) 08/15/21 09:35 Ur Specific [place] >=1.030 (1.002-1.030) H 08/15/21 09:35 Urine Protein NEGATIVE mg/dL (NEGATIVE) 08/15/21 09:35 Urine Glucose (UA) NEGATIVE mg/dL (NEGATIVE) 08/15/21 09:35 Urine Ketones NEGATIVE mg/dL (NEGATIVE) 08/15/21 09:35 Urine Occult Blood NEGATIVE (NEGATIVE) 08/15/21 09:35 Urine Nitrite NEGATIVE (NEGATIVE) 08/15/21 09:35 Urine Bilirubin NEGATIVE (NEGATIVE) 08/15/21 09:35 Urine Urobilinogen 0.2 (NORMAL) E.U./dL (NORMAL) 08/15/21 09:35 Ur Leukocyte Esterase NEGATIVE (NEGATIVE) 08/15/21 09:35 Ur Microscopic Review NOT INDICATED 08/15/21 09:35 Urine Culture Comments NOT INDICATED 08/15/21 09:35 Nasal Screen MRSA (PCR) NEGATIVE (NEGATIVE) 08/15/21 11:26 SARS-CoV-2 (PCR) NOT DETECTED 08/15/21 10:50 ABX Reporting Has patient been on IV antibiotics over the past 48 hours?: No
[2021-08-18] MEDS: OMEGA-3 ACID ETHYL ESTERS 1 GM CAPSULE PO SCH ×2 (08:40→20:54)
[2021-08-18] MEDS: SODIUM CHLORIDE FLUSH 0.9% 10 ML SYRINGE IVP SCH ×3 (08:42→20:55)
[2021-08-18] MEDS: polyethylene glycoL 3350 17 GM PACKET PO SCH (08:45)
[2021-08-18] MEDS: ONDANSETRON 4 MG/2 ML VIAL IVP PRN (12:30)
[2021-08-18] MEDS: ACETAMINOPHEN 325 MG TABLET PO PRN (14:30)
[2021-08-18] MEDS: INSULIN REGULAR HUMAN 100 UNIT in SODIUM CHLORIDE 0.9% 100ML 99 ML IV SCH (20:55)
[2021-08-19] MEDS: HYDROmorphone 1 MG/ML CARPUJECT IVP PRN ×2 (00:50→04:14)
[2021-08-19] MEDS: oxyCODONE 5 MG TABLET PO PRN ×7 (00:50→22:41)
[2021-08-19] MEDS: D5NS W/20 MEQ KCL 1,000 ML IV SCH (03:30)
[2021-08-19] MEDS: SODIUM CHLORIDE FLUSH 0.9% 10 ML SYRINGE IVP PRN ×2 (04:15→06:29)
[2021-08-19 04:22] LABS: BASOPHILS % (AUTO) 0.6 %; EOSINOPHILS # (AUTO) 0.2 10^3/uL (0.0-0.7); EOSINOPHILS % (AUTO) 5.2 %; HCT - HEMATOCRIT 37.3 % (42.0-52.0); HGB - HEMOGLOBIN 12.7 g/dL (14.0-18.0); LYMPHOCYTES # (AUTO) 1.7 10^3/uL (1.5-3.5); LYMPHOCYTES % (AUTO) 36.6 %; MEAN CORPUSCULAR HEMOGLOBIN 30.2 pg (27.0-31.0); MEAN CORPUSCULAR VOLUME 88.6 fL (80.0-94.0); MEAN PLATELET VOLUME 10.6 fL (7.4-11.4); MONOCYTES # (AUTO) 0.4 10^3/uL (0.0-1.0); NEUTROPHILS # (AUTO) 2.3 10^3/uL (1.5-6.6); NEUTROPHILS % (AUTO) 48.4 %; PLT - PLATELET COUNT 230 10^3/uL (130-450); RED BLOOD COUNT 4.21 10^6/uL (4.70-6.10); RED CELL DISTRIBUTION WIDTH 12.2 % (12.0-15.0); WHITE BLOOD COUNT 4.7 x10^3/uL (4.8-10.8)
[2021-08-19 04:35] LABS: MAGNESIUM 1.9 mg/dL (1.7-2.8); PHOSPHORUS 4.1 mg/dL (2.5-4.6)
[2021-08-19 04:41] LABS: CHOL/HDL RATIO 8.3 (<5.0); CHOLESTEROL 216 mg/dL; HDL CHOLESTEROL 26 mg/dL; LDL CHOLESTEROL,CALCULATED 129 mg/dL; TRIGLYCERIDES 305 mg/dL; VLDL CHOLESTEROL 61 mg/dL
[2021-08-19 05:28] LABS: ALBUMIN 3.5 g/dL (3.2-5.5); ALBUMIN/GLOBULIN RATIO 1.1 (1.0-2.2); ALKALINE PHOSPHATASE 51 IU/L (42-121); ALT ALANINE AMINOTRANSFERASE 28 IU/L (10-60); AST ASPARTATE AMINOTRANSFERASE 22 IU/L (10-42); BILIRUBIN,TOTAL 0.9 mg/dL (0.2-1.0); BUN - BLOOD UREA NITROGEN < 5 mg/dL (6-20); CARBON DIOXIDE - CO2 24 mmol/L (21-32); CHLORIDE 101 mmol/L (101-111); CREATININE 0.7 mg/dL (0.6-1.2); GFR - MDRD 124 (>89); GLUCOSE 126 mg/dL (70-100); POTASSIUM 3.9 mmol/L (3.5-5.0); SODIUM 135 mmol/L (135-145); TOTAL PROTEIN 6.7 g/dL (6.7-8.2)
[2021-08-19] MEDS ORDERED: POTASSIUM CHLORIDE 20 MEQ TABLET PO ONE (06:00)
[2021-08-19] MEDS: PANTOPRAZOLE 40 MG VIAL IVP SCH (06:28)
[2021-08-19] MEDS: gemfibroziL 600 MG TABLET PO SCH ×2 (06:28→16:00)
--- NOTE | 2021-08-19 07:31 | PROVIDER PROGRESS NOTE ---
Assessment/Plan - Problem List (1) Pancreatitis Qualifiers: Chronicity: acute Pancreatitis type: unspecified pancreatitis type Acute pancreatitis complication: unspecified Qualified Code(s): K85.90 - Acute pancreatitis without necrosis or infection, unspecified Assessment/Plan: Triglyceride was down to 307 today. Thus insulin drip was discontinued. Dextrose 5+ normal saline was also discontinued. Patient's diet was advanced to a soft diet. Pain management with Dilaudid pushes as needed and oxycodone p.o. as needed as needed. (2) Hypertriglyceridemia Assessment/Plan: Triglyceride this morning was 307. On Lopid 600 mg p.o. twice daily [place]-3 fatty acid every afternoon. (3) Hypertension Assessment/Plan: Hydralazine 10 mg IV every 4 hours as needed for systolic blood pressure greater than 160. - Current Meds Current Meds: Current Medications Generic Name Dose Route Start Last Admin Trade Name Freq PRN Reason Stop Dose Admin Acetaminophen 650 mg 08/15/21 10:24 08/18/21 14:30 Acetaminophen 325 Mg Tablet PO 650 mg Q4HR PRN Administration Pain 1 to 4 Gemfibrozil 600 mg 08/15/21 16:00 08/19/21 06:28 Gemfibrozil 600 Mg Tablet PO 600 mg BIDAC TRISHA Administration Hydromorphone HCl 1 mg 08/17/21 14:59 08/19/21 04:14 Hydromorphone 1 Mg/Ml Carpuject IVP 1 mg Q2HR PRN Administration PAIN Potassium Chloride/Dextrose/Sod Cl 1,000 mls @ 175 mls/hr 08/15/21 12:00 08/19/21 07:00 D5ns W/20 Meq Kcl IV 175 mls/hr .Q5H43M TRISHA Infusion Insulin Human Regular 100 unit 100 mls @ 1 mls/hr 08/17/21 11:00 08/19/21 07:00 / Sodium Chloride IV 1 unit/hr .Q72H TRISHA 1 mls/hr Titration Protocol 1 UNIT/HR Deogt-2-Ibuw Ethyl Esters 2 gm 08/15/21 21:00 08/18/21 20:54 [place]-3 Acid Ethyl Esters 1 Gm Capsule PO 2 gm BID TRISHA Administration Ondansetron HCl 4 mg 08/15/21 10:24 08/18/21 12:30 Ondansetron 4 Mg/2 Ml Vial IVP 4 mg Q6HR PRN Administration Nausea / Vomiting Oxycodone HCl 7.5 mg 08/17/21 15:00 08/19/21 05:34 Oxycodone 5 Mg Tablet PO 7.5 mg Q4HR PRN Administration Pain 5 to 7 Pantoprazole Sodium 40 mg 08/16/21 07:00 08/19/21 06:28 Pantoprazole 40 Mg Vial IVP 40 mg QDAC TRISHA Administration Polyethylene Glycol 17 gm 08/17/21 14:30 08/18/21 08:45 Polyethylene Glycol 3350 17 Gm Packet PO 17 gm DAILY TRISHA Administration Sodium Chloride 10 ml 08/15/21 17:00 08/18/21 20:55 Sodium Chloride Flush 0.9% 10 Ml Syringe IVP 10 ml 0100,0900,1700 TRISHA Administration Sodium Chloride 10 ml 08/15/21 10:17 08/19/21 06:29 Sodium Chloride Flush 0.9% 10 Ml Syringe IVP 10 ml PRN PRN Administration NEEDED PER PROVIDER ORDERS - Lab Result Fish Bone Diagrams: 08/19/21 04:05 08/19/21 10:28 - Additional Planning My Orders: My Active Orders 08/18/21 Lunch Full Liquid Diet [DIET] 08/19/21 10:00 POTASSIUM [CHEM] Timed 08/19/21 Lunch Soft (Low Fiber) Diet [DIET] 08/20/21 05:00 CBC - COMP BLD CT W/AUTO DIFF [HEME] DAILYLAB LIPASE [CHEM] DAILYLAB LIPID Panel [CHEM] DAILYLAB 08/21/21 05:00 LIPID Panel [CHEM] DAILYLAB Subjective - Subjective Patient Reports: Other (Resting comfortably in bed at time of exam. Complained of headache. Pain is manageable with current pain medication.) Objective Vital Signs: Vital Signs - 24 hr 08/18/21 08/18/21 08/18/21 08:31 12:37 17:09 Temperature 36.9 C 36.8 C 36.8 C Heart Rate [ 73 83 80 Monitoring electrodes] Respiratory 14 14 10 L Rate Blood Pressure 130/89 H 151/97 H 127/84 H [Right Brachial artery] O2 Saturation 98 95 98 08/18/21 08/19/21 08/19/21 21:00 01:00 05:00 Temperature 36.5 C Heart Rate [ 67 61 72 Monitoring electrodes] Respiratory 9 L 11 L 14 Rate Blood Pressure 126/91 H 117/74 136/91 H [Right Brachial artery] O2 Saturation 98 97 99 Oxygen O2 Source Room air I&O (Last 24 Hrs): Intake and Output Totals x24h 08/17/21 08/18/21 08/20/21 23:59 23:59 00:59 Intake Total 6831.966 7375.651 2096.166 Output Total 6090 2450 800 Balance 579.104 7966.651 1296.166 Comments/Notes: General: Alert, Oriented x3, Mild to Moderate distress HEENT: PERRLA, EOMI Neck: Supple, No JVD Neuro: Alert, Oriented Times 3 Cardiovascular: Regular rate Respiratory: Chest non-tender, No respiratory distress, Breath sounds nml Abdomen: Normal bowel sounds, Soft, No tenderness, No masses Extremities: No clubbing, No cyanosis, No edema, No tenderness/swelling Skin: No rashes, No breakdown - Results Results: Laboratory Results WBC 4.7 x10^3/uL (4.8-10.8) L 08/19/21 04:05 RBC 4.21 10^6/uL (4.70-6.10) L 08/19/21 04:05 Hgb 12.7 g/dL (14.0-18.0) L 08/19/21 04:05 Hct 37.3 % (42.0-52.0) L 08/19/21 04:05 MCV 88.6 fL (80.0-94.0) 08/19/21 04:05 MCH 30.2 pg (27.0-31.0) 08/19/21 04:05 MCHC 34.0 g/dL (32.0-36.0) 08/19/21 04:05 RDW 12.2 % (12.0-15.0) 08/19/21 04:05 Plt Count 230 10^3/uL (130-450) 08/19/21 04:05 MPV 10.6 fL (7.4-11.4) 08/19/21 04:05 Neut # (Auto) 2.3 10^3/uL (1.5-6.6) 08/19/21 04:05 Lymph # (Auto) 1.7 10^3/uL (1.5-3.5) 08/19/21 04:05 [place] # (Auto) 0.4 10^3/uL (0.0-1.0) 08/19/21 04:05 Eos # (Auto) 0.2 10^3/uL (0.0-0.7) 08/19/21 04:05 Baso # (Auto) 0.0 10^3/uL (0.0-0.1) 08/19/21 04:05 Absolute Nucleated RBC 0.00 x10^3/uL 08/19/21 04:05 Nucleated RBC % 0.0 /100WBC 08/19/21 04:05 VBG pH 7.393 (7.31-7.41) 08/15/21 20:02 Ionized Calcium 1.11 mmol/L (1.15-1.33) L 08/15/21 20:02 Sodium 135 mmol/L (135-145) 08/19/21 04:05 Potassium 3.9 mmol/L (3.5-5.0) 08/19/21 04:05 Chloride 101 mmol/L (101-111) 08/19/21 04:05 Carbon Dioxide 24 mmol/L (21-32) 08/19/21 04:05 Anion Gap 10.0 (6-13) 08/19/21 04:05 BUN < 5 mg/dL (6-20) L 08/19/21 04:05 Creatinine 0.7 mg/dL (0.6-1.2) 08/19/21 04:05 Estimated GFR (MDRD) 124 (>89) 08/19/21 04:05 Glucose 126 mg/dL (70-100) H 08/19/21 04:05 POC Whole Bld Glucose 137 mg/dL (70 - 100) H 08/19/21 04:09 Calcium 9.0 mg/dL (8.5-10.3) 08/19/21 04:05 Phosphorus 4.1 mg/dL (2.5-4.6) 08/19/21 04:05 Magnesium 1.9 mg/dL (1.7-2.8) 08/19/21 04:05 Total Bilirubin 0.9 mg/dL (0.2-1.0) 08/19/21 04:05 AST 22 IU/L (10-42) 08/19/21 04:05 ALT 28 IU/L (10-60) 08/19/21 04:05 Alkaline Phosphatase 51 IU/L (42-121) 08/19/21 04:05 Total Protein 6.7 g/dL (6.7-8.2) 08/19/21 04:05 Albumin 3.5 g/dL (3.2-5.5) 08/19/21 04:05 Globulin 3.2 g/dL (2.1-4.2) 08/19/21 04:05 Albumin/Globulin Ratio 1.1 (1.0-2.2) 08/19/21 04:05 Triglycerides 305 mg/dL (-149) H 08/19/21 04:05 Cholesterol 216 mg/dL (-199) H 08/19/21 04:05 LDL Cholesterol Direct 88 mg/dL (-129) 08/18/21 04:10 LDL Cholesterol, Calc 129 mg/dL (-129) 08/19/21 04:05 VLDL Cholesterol 61 mg/dL 08/19/21 04:05 HDL Cholesterol 26 mg/dL (60-) L 08/19/21 04:05 LDL/HDL Ratio 5.0 (<3.6) 08/19/21 04:05 dLDL/HDL Ratio 3.5 (<3.6) 08/18/21 04:10 Cholesterol/HDL Ratio 8.3 (<5.0) 08/19/21 04:05 Lipase 81 U/L (22-51) H 08/19/21 04:05 Urine Color DARK YELLOW 08/15/21 09:35 Urine Clarity CLEAR (CLEAR) 08/15/21 09:35 Urine pH 5.5 PH (5.0-7.5) 08/15/21 09:35 Ur Specific [place] >=1.030 (1.002-1.030) H 08/15/21 09:35 Urine Protein NEGATIVE mg/dL (NEGATIVE) 08/15/21 09:35 Urine Glucose (UA) NEGATIVE mg/dL (NEGATIVE) 08/15/21 09:35 Urine Ketones NEGATIVE mg/dL (NEGATIVE) 08/15/21 09:35 Urine Occult Blood NEGATIVE (NEGATIVE) 08/15/21 09:35 Urine Nitrite NEGATIVE (NEGATIVE) 08/15/21 09:35 Urine Bilirubin NEGATIVE (NEGATIVE) 08/15/21 09:35 Urine Urobilinogen 0.2 (NORMAL) E.U./dL (NORMAL) 08/15/21 09:35 Ur Leukocyte Esterase NEGATIVE (NEGATIVE) 08/15/21 09:35 Ur Microscopic Review NOT INDICATED 08/15/21 09:35 Urine Culture Comments NOT INDICATED 08/15/21 09:35 Nasal Screen MRSA (PCR) NEGATIVE (NEGATIVE) 08/15/21 11:26 SARS-CoV-2 (PCR) NOT DETECTED 08/15/21 10:50 ABX Reporting Has patient been on IV antibiotics over the past 48 hours?: No
[2021-08-19] MEDS: OMEGA-3 ACID ETHYL ESTERS 1 GM CAPSULE PO SCH ×2 (07:57→19:59)
[2021-08-19] MEDS: ACETAMINOPHEN 325 MG TABLET PO PRN ×2 (07:58→22:43)
[2021-08-19] MEDS: polyethylene glycoL 3350 17 GM PACKET PO SCH (07:58)
[2021-08-19] MEDS: SODIUM CHLORIDE FLUSH 0.9% 10 ML SYRINGE IVP SCH ×3 (09:30→22:45)
[2021-08-20] MEDS: oxyCODONE 5 MG TABLET PO PRN ×2 (04:23→08:28)
[2021-08-20 04:24] LABS: BASOPHILS % (AUTO) 0.6 %; EOSINOPHILS # (AUTO) 0.3 10^3/uL (0.0-0.7); HGB - HEMOGLOBIN 14.1 g/dL (14.0-18.0); LYMPHOCYTES # (AUTO) 2.3 10^3/uL (1.5-3.5); LYMPHOCYTES % (AUTO) 44.8 %; MEAN CORPUSCULAR HGB CONC 34.4 g/dL (32.0-36.0); MEAN CORPUSCULAR VOLUME 87.2 fL (80.0-94.0); MEAN PLATELET VOLUME 10.1 fL (7.4-11.4); MONOCYTES # (AUTO) 0.6 10^3/uL (0.0-1.0); NEUTROPHILS # (AUTO) 1.9 10^3/uL (1.5-6.6); NEUTROPHILS % (AUTO) 37.4 %; PLT - PLATELET COUNT 254 10^3/uL (130-450); RED CELL DISTRIBUTION WIDTH 12.1 % (12.0-15.0); WHITE BLOOD COUNT 5.2 x10^3/uL (4.8-10.8)
[2021-08-20 04:41] LABS: CHOL/HDL RATIO 8.6 (<5.0); CHOLESTEROL 206 mg/dL; HDL CHOLESTEROL 24 mg/dL; LDL CHOLESTEROL,CALCULATED 121 mg/dL; TRIGLYCERIDES 305 mg/dL; VLDL CHOLESTEROL 61 mg/dL
[2021-08-20] MEDS: SODIUM CHLORIDE FLUSH 0.9% 10 ML SYRINGE IVP PRN (07:02)
[2021-08-20] MEDS: PANTOPRAZOLE 40 MG VIAL IVP SCH (07:02)
[2021-08-20] MEDS: gemfibroziL 600 MG TABLET PO SCH (07:02)
--- NOTE | 2021-08-20 07:23 | DISCHARGE SUMMARY ---
Discharge Summary Admit Date: 08/15/21 Discharge Date: 08/20/21 Discharging Provider: Maylin Ortega Code Status: Attempt Resuscitation Condition at Discharge: Stable Discharge Disposition: 01 Home, Self Care - DIAGNOSES Admission Diagnoses: Pancreatitis Hypertriglyceridemia Hypertension Discharge Diagnoses with Status of Each Condition: Pancreatitis: Acute. Recurrent. 2/2 Hypertriglyceridemia. To follow up with Endocrinology. Hypertriglyceridemia: Chronic. Continue taking medications. To follow up with Endocrinology. Hypertension: Continue home medication - HPI History of Present Illness: Patient is a 41-year-old male who presented to the ED with complaint of epigastric pain. It started around 3 AM this morning when he woke up from sleep. It is rated an 8 out of 10 pain scale. It is nonradiating. He was nauseous and vomited once upon presentation to the ED. Last night for dinner he had rice, ground beef and silent. He denies any alcohol consumption recently. Work-up in the ED showed a lipase of 624. His triglyceride level was noted to be greater than 1000. This is his fourth presentation to the hospital in the past year for the same problem. 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 He has been compliant with omega-3 fatty acids and Lopid. At bedside he denies chest pain, dyspnea, fever or chills. He is being admitted to the ICU for further management. - HOSPITAL COURSE Hospital Course: Patient was admitted to the ICU and started on an insulin drip. Over the course of 5 days triglyceride level improved from greater than 1000 down to 307. 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 Pain medication was steadily decreased. He was finally discharged home with prescription of [place] 7.5/325 mg tablets to take 1 every 6 hours as needed for 5 days. It is suspected that his pancreatitis is due to hypertriglyceridemia. It is suspected that there is a genetic component. He has a referral for endocrinology which he has been encouraged to keep. He has also been advised to stop drinking alcohol in the chance that it worsens an underlying problem. He was advised to continue taking omega-3 fatty acids and Lopid. He was discharged in stable condition. - ALLERGIES Allergies/Adverse Reactions: Allergies Allergy/AdvReac Type Severity Reaction Status Date / Time Penicillins Allergy Unknown Verified 08/15/21 07:59 - MEDICATIONS Home Medications: Ambulatory Orders Medication Instructions Recorded Confirmed hydroCHLOROthiazide [Hydrodiuril] 12.5 mg PO DAILY #30 cap 05/05/21 08/15/21 [place]-3 Acid Ethyl Esters [Lovaza] 2 gm PO BID 30 Days #120 cap 05/26/21 08/15/21 gemfibroziL [Lopid] 600 mg PO BIDAC 30 Days #60 tablet 05/26/21 08/15/21 Hydrocodone/Acetaminophen 1 each PO Q6H PRN 5 Days #20 tablet 08/20/21 [Hydrocodone-Acetamin 7.5-300] - PHYSICAL EXAM AT DISCHARGE General Appearance: positive: Alert, Mild distress Eyes Bilateral: positive: PERRL, EOMI ENT: positive: No signs of dehydration Neck: positive: No JVD, Trachea midline Cardiovascular: positive: Regular rate & rhythm, No murmur Abdomen: positive: Nml bowel sounds, No distention, Tenderness (epigastric, mild). negative: Guarding, Rebound Back: positive: Nml inspection Skin: positive: Color nml, No rash, Warm, Dry Neurologic/Psychiatric: positive: Oriented x3, Mood/affect nml - LABS Result Diagrams: 08/20/21 04:14 08/19/21 10:28 - TIME SPENT Time Spent in Discharge (Minutes): 15
--- NOTE | 2021-08-20 07:23 | Discharge Plan ---
Discharge Plan Problem Reviewed?: Yes Disposition: Home, Self Care Condition: Stable Prescriptions: Hydrocodone/Acetaminophen [Hydrocodone-Acetamin 7.5-300] 1 each PO Q6H PRN 5 Days #20 tablet PRN Reason: Pain Diet: Soft Activity Restrictions: Activity as Tolerated Weight Bearing: Full Weight Health Concerns: You were admitted on 08/15/2021 with epigastric abdominal pain for which you were diagnosed with pancreatitis. This was due to high triglyceride level. Your triglyceride level was greater than 1000. You were admitted to the ICU and started on an insulin drip which was maintained for 4 days. By the day of discharge your triglyceride levels had come down to 307. Your pain has improved. Your pain was managed with pain medication. You be sent home with prescription of 5 days worth of pain medication. You are encouraged to continue taking the omega-3 fatty acids and Lopid. You have advised to avoid drinking any alcohol. You have a referral for endocrinology. You have been advised to follow-up with the appointment. You may follow-up with your primary care physician as needed. The above plan was discussed with you you expressed understanding and were agreeable with the plan. You are being discharged in stable condition. No Smoking: If you smoke, Please STOP! Call for help. Follow-up with: STANFORD WRIGHT DO [Primary Care Provider] -
[2021-08-20] MEDS: polyethylene glycoL 3350 17 GM PACKET PO SCH (08:07)
[2021-08-20] MEDS: OMEGA-3 ACID ETHYL ESTERS 1 GM CAPSULE PO SCH (08:07)
[2021-08-20 08:19] VITALS: BP 161/106
[2021-08-20] MEDS: SODIUM CHLORIDE FLUSH 0.9% 10 ML SYRINGE IVP SCH (10:46)
[2021-08-20] MEDS ORDERED: gemfibroziL 600 MG TABLET PO SCH (16:00)
== END 2021-08-20 11:25 | disposition home or self-care (01) | DRG 440 ==
LOC: ED 07:47 → ICU 10:17
PROVIDERS: ADMIT Internal Medicine; ATTEND Internal Medicine
DX: K85.90 Acute pancreatitis without necrosis or infection, unspecified (principal); E78.1 Pure hyperglyceridemia; I10 Essential (primary) hypertension; E78.00 Pure hypercholesterolemia, unspecified; F17.210 Nicotine dependence, cigarettes, uncomplicated; Z20.822 Contact with and (suspected) exposure to COVID-19; Z79.899 Other long term (current) drug therapy; Z83.49 Family history of other endocrine, nutritional and metabolic diseases; Z83.79 Family history of other diseases of the digestive system; Z88.0 Allergy status to penicillin
CPT/HCPCS: 36415; 74177; 80048; 80053; 80061; 81003; 82330; 83690; 83721; 83735; 84100; 84132; 84478; 85025; 87150; 87635; 96361; 96374; 96376; 99284; 99285; A9270; J1170; J1815; Q9967; 81001; 87086

== ENCOUNTER 2021-09-28 09:47 | Emergency (ER) | payer OTHER ==
--- NOTE | 2021-09-28 10:02 | ED Physician Documentation ---
PD HPI ABD PAIN - Stated complaint Stated Complaint: ABD PX - Chief complaint Chief Complaint: Abd Pain - History obtained from History obtained from: Patient - History of Present Illness Timing - onset: Today, Last night Timing - duration: Hours Timing - details: Abrupt onset, Still present Quality: Cramping, Aching, Pain Location: RUQ, Epigastric Radiation: Upper back Improved by: No: Eating Worsened by: No: Eating Associated symptoms: Nausea, Vomiting, Loss of appetite. No: Fever, Hematemesis, Diarrhea, Constipation, Dysuria Similar symptoms before: Diagnosis (pancreatitis due to hypertriglycerides.) Recently seen: Clinic (had outpt MRCP last week to eval ductal area, with result pending per patient.) Review of Systems Constitutional: reports: Myalgias. denies: Fever, Chills Nose: denies: Rhinorrhea / runny nose, Congestion Throat: denies: Sore throat Respiratory: denies: Cough GI: reports: Abdominal Pain, Nausea, Vomiting. denies: Abdominal Swelling, Constipation, Diarrhea Skin: denies: Rash Musculoskeletal: denies: Neck pain, Back pain Neurologic: reports: Generalized weakness, Headache. denies: Focal weakness, N umbness, Near syncope, Altered mental status PD PAST MEDICAL HISTORY - Past Medical History Cardiovascular: Hypertension, High cholesterol Respiratory: None Neuro: None Endocrine/Autoimmune: None GI: Pancreatitis (due to very elevated lipids. Has appt with legal administrative secretary in about 2 weeks. 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 - Present Medications Home Medications: Ambulatory Orders Medication Instructions Recorded Confirmed hydroCHLOROthiazide [Hydrodiuril] 12.5 mg PO DAILY #30 cap 05/05/21 09/28/21 [place]-3 Acid Ethyl Esters [Lovaza] 2 gm PO BID 30 Days #120 cap 05/26/21 09/28/21 gemfibroziL [Lopid] 600 mg PO BIDAC 30 Days #60 tablet 05/26/21 09/28/21 Hydrocodone/Acetaminophen 1 each PO Q6H PRN 5 Days #20 tablet 08/20/21 [Hydrocodone-Acetamin 7.5-300] gemfibroziL [Lopid] 600 mg PO BIDAC 30 Days #60 tablet 08/20/21 Cholestyramine [Questran] 4 gm PO BID 15 Days #30 packet 09/28/21 Morphine Ir [Ms Ir] 15 mg PO Q6H PRN #20 tablet 09/28/21 Naproxen 250 mg PO BID 10 Days #20 tablet 09/28/21 Ondansetron Odt [Zofran] 4 mg TL Q6H PRN #20 tablet 09/28/21 - Allergies Allergies/Adverse Reactions: Allergies Allergy/AdvReac Type Severity Reaction Status Date / Time Penicillins Allergy Unknown Verified 09/28/21 09:54 - Social History Does the pt smoke?: Yes Smoking Status: Current every day smoker Does the pt drink ETOH?: Yes Does the pt have substance abuse?: No - Immunizations Immunizations are current?: Yes - POLST Patient has POLST: No POLST Status: Full Code PD ED PE NORMAL - Vitals Vital signs reviewed: Yes - General General: Alert and oriented X 3, Well developed/nourished, Other (appears in c onsiderable pain upper abd, bent over as walking to room. ) - HEENT HEENT: PERRL (nonicteric) - Neck Neck: Supple, no meningeal sign, No adenopathy - Cardiac Cardiac: RRR, No murmur - Respiratory Respiratory: Clear bilaterally - Abdomen Abdomen: Normal bowel sounds, Soft, Non distended, No organomegaly, Other (tender with guarding and local percussion tender upper abd midline and slightly right. No tender lower abdomen. ) - Derm Derm: Normal color, Warm and dry - Extremities Extremities: No edema, No calf tenderness / cord - Neuro Neuro: Alert and oriented X 3, No motor deficit, No sensory deficit, Normal speech Eye Opening: Spontaneous Motor: Obeys Commands Verbal: Oriented GCS Score: 15 Results - Vitals Vitals: Vital Signs - 24 hr 09/28/21 09/28/21 09/28/21 09:52 12:30 13:58 Temperature 36.0 C L Heart Rate 83 92 77 Respiratory 16 14 16 Rate Blood Pressure 141/109 H 128/73 127/76 O2 Saturation 98 94 95 09/28/21 14:36 Temperature 36.7 C Heart Rate 97 Respiratory 18 Rate Blood Pressure 141/92 H O2 Saturation 95 Oxygen O2 Source Room air - Labs Labs: Laboratory Tests 09/28/21 09/28/21 09/28/21 10:15 10:15 10:15 WBC 7.6 RBC 4.73 Hgb 14.6 Hct 40.2 L MCV 85.0 MCH 30.9 MCHC 36.3 H RDW 12.3 Plt Count 247 MPV 11.3 Neut # (Auto) 4.7 Lymph # (Auto) 2.1 [place] # (Auto) 0.5 Eos # (Auto) 0.1 Baso # (Auto) 0.0 Absolute Nucleated RBC 0.07 Nucleated RBC % 0.9 Sodium 129 L Potassium 3.8 Chloride 95 L Carbon Dioxide 22 Anion Gap 12.0 BUN 15 Creatinine 0.7 Estimated GFR (MDRD) 124 Glucose 180 H Calcium 9.2 Magnesium 2.4 Total Bilirubin 0.7 AST 28 ALT 21 Alkaline Phosphatase 67 Total Protein 6.9 Albumin 4.4 Globulin 2.5 Albumin/Globulin Ratio 1.8 Triglycerides Cholesterol LDL Cholesterol Direct LDL Cholesterol, Calc VLDL Cholesterol HDL Cholesterol LDL/HDL Ratio dLDL/HDL Ratio Cholesterol/HDL Ratio Lipase 696 H Ethyl Alcohol < 5.0 09/28/21 10:15 WBC RBC Hgb Hct MCV MCH MCHC RDW Plt Count MPV Neut # (Auto) Lymph # (Auto) [place] # (Auto) Eos # (Auto) Baso # (Auto) Absolute Nucleated RBC Nucleated RBC % Sodium Potassium Chloride Carbon Dioxide Anion Gap BUN Creatinine Estimated GFR (MDRD) Glucose Calcium Magnesium Total Bilirubin AST ALT Alkaline Phosphatase Total Protein Albumin Globulin Albumin/Globulin Ratio Triglycerides > 2000 H Cholesterol 472 H LDL Cholesterol Direct 18 LDL Cholesterol, Calc Not Reportable VLDL Cholesterol Not Reportable HDL Cholesterol 25 L LDL/HDL Ratio Not Reportable dLDL/HDL Ratio 0.7 Cholesterol/HDL Ratio 18.9 Lipase Ethyl Alcohol PD MEDICAL DECISION MAKING - ED course Complexity details: reviewed results (MRCP recent outpatient showing normal biliary ductal system. ), re-evaluated patient (he is feeling improved pain aft er meds, taking sips of water. He would prefer to try going home with meds. States prior oxycodone 7.5 mg made him nauseated and "drugged", was taking 1-2 at a time. Would like to try other med. I suggested oral Morphine for pain relief.), considered differential, d/w patient Departure - Departure Disposition: Home, Self Care Clinical Impression: Hypertriglyceridemia Abdominal pain Qualifiers: Abdominal location: upper abdomen, unspecified Qualified Code(s): R10.10 - Upper abdominal pain, unspecified Acute pancreatitis without necrosis or infection, unspecified Qualifiers: Pancreatitis type: other Qualified Code(s): K85.80 - Other acute pancreatitis without necrosis or infection Condition: Stable Record reviewed to determine appropriate education?: Yes Instructions: ED Pancreatitis Follow-Up: SARTHAK CORTES MD [Primary Care Provider] - Prescriptions: Morphine Ir [Ms Ir] 15 mg PO Q6H PRN #20 tablet PRN Reason: Pain Naproxen 250 mg PO BID 10 Days #20 tablet Cholestyramine [Questran] 4 gm PO BID 15 Days #30 packet Ondansetron Odt [Zofran] 4 mg TL Q6H PRN #20 tablet PRN Reason: Nausea / Vomiting Comments: Clear liquids only today and tomorrow. Start bland food tomorrow if improving some. Use ondansetron if needed for nausea. Take naproxen anti-inflammatory twice daily with food for the next several days to week. Add Tylenol or oral morphine if needed for pain. The oral morphine should hopefully work more smoothly than the oxycodone had in the past. Oral Dilaudid is not very well absorbed so I typically do not prefer that in a prescription oral form. Continue with your cholesterol-lowering medicines. You could also add cholestyramine twice daily for the next 2 weeks. This tries to bind with the cholesterol and triglycerides in the intestine and keep them from reabsorbing. Follow-up with your endocrinology appointment as planned. Return if worsening or continued pain despite the above medications. I transmitted your prescriptions to [facility] pharmacy in [place]. I am prescribing a short course of narcotic pain medication for you. These are potentially dangerous and addictive medications that should be used carefully. These medications may constipate you. Take an [id number] stool softener such as docusate twice daily with plenty of water while taking these medications. If you go 24 hours without a bowel movement, take [id number] MiraLAX, per package instructions. Do not drink or drive while taking these medications. If you received narcotic or sedating medications while in the emergency department do not drive for 24 hours. Store this medication in a safe, secure place and out of reach of children. It is a violation of federal law to give or sell this medication to another person or to use in a manner other than prescribed. The ED will not refill narcotic prescriptions, including prescriptions lost or stolen. You can dispose of unwanted medications at the [facility]'s office or at several pharmacies such as [facility]. Discharge Date/Time: 09/28/21 14:36
[2021-09-28 10:41] LABS: ALBUMIN 4.4 g/dL (3.2-5.5); ALBUMIN/GLOBULIN RATIO 1.8 (1.0-2.2); BILIRUBIN,TOTAL 0.7 mg/dL (0.2-1.0); CALCIUM 9.2 mg/dL (8.5-10.3); CREATININE 0.7 mg/dL (0.6-1.2); POTASSIUM 3.8 mmol/L (3.5-5.0); TOTAL PROTEIN 6.9 g/dL (6.7-8.2)
[2021-09-28 10:43] LABS: BASOPHILS % (AUTO) 0.5 %; EOSINOPHILS # (AUTO) 0.1 10^3/uL (0.0-0.7); EOSINOPHILS % (AUTO) 1.7 %; HCT - HEMATOCRIT 40.2 % (42.0-52.0); HGB - HEMOGLOBIN 14.6 g/dL (14.0-18.0); LYMPHOCYTES # (AUTO) 2.1 10^3/uL (1.5-3.5); LYMPHOCYTES % (AUTO) 28.2 %; MEAN CORPUSCULAR HEMOGLOBIN 30.9 pg (27.0-31.0); MEAN CORPUSCULAR HGB CONC 36.3 g/dL (32.0-36.0); MEAN PLATELET VOLUME 11.3 fL (7.4-11.4); MONOCYTES # (AUTO) 0.5 10^3/uL (0.0-1.0); MONOCYTES % (AUTO) 6.6 %; NEUTROPHILS # (AUTO) 4.7 10^3/uL (1.5-6.6); NEUTROPHILS % (AUTO) 62.7 %; NRBC ABSOLUTE COUNT (AUTO) 0.07 x10^3/uL; NUCLEATED RED BLOOD CELLS AUTO 0.9 /100WBC; PLT - PLATELET COUNT 247 10^3/uL (130-450); RED BLOOD COUNT 4.73 10^6/uL (4.70-6.10); RED CELL DISTRIBUTION WIDTH 12.3 % (12.0-15.0); WHITE BLOOD COUNT 7.6 x10^3/uL (4.8-10.8)
[2021-09-28] MEDS: HYDROmorphone 1 MG/ML CARPUJECT IVP STA (10:43)
[2021-09-28] MEDS: DROPERIDOL 5 MG/2 ML VIAL IVP STA (10:44)
[2021-09-28] MEDS: KETOROLAC 15 MG/ML VIAL IVP STA (10:44)
[2021-09-28] MEDS: SODIUM CHLORIDE 0.9% 1,000 ML IV STA (10:48)
[2021-09-28 10:55] LABS: ETOH - ETHANOL < 5.0 mg/dL; MAGNESIUM 2.4 mg/dL (1.7-2.8)
[2021-09-28] MEDS: HYDROmorphone 2 MG/ML VIAL IVP STA (11:11)
[2021-09-28 11:47] LABS: CHOL/HDL RATIO 18.9 (<5.0); CHOLESTEROL 472 mg/dL; HDL CHOLESTEROL 25 mg/dL
[2021-09-28 11:48] LABS: TRIGLYCERIDES > 2000 mg/dL
[2021-09-28 12:11] LABS: LDL CHOLESTEROL,DIRECT 18 mg/dL; LDLD/HDL RATIO 0.7 (<3.6)
[2021-09-28] MEDS: KETAMINE 500 MG/10 ML VIAL IVP STA (13:37)
[2021-09-28 14:37] VITALS: BP 141/92
== END 2021-09-28 14:36 | disposition home or self-care (01) ==
LOC: ED 09:47
DX: K85.80 Other acute pancreatitis without necrosis or infection (principal); E78.1 Pure hyperglyceridemia; I10 Essential (primary) hypertension
CPT/HCPCS: 36415; 80053; 80061; 80320; 83690; 83721; 83735; 85025; 93005; 96374; 96375; 99284; J1170

== ENCOUNTER 2022-05-23 07:10 | Emergency (ER) | payer OTHER ==
[2022-05-23 07:46] LABS: BASOPHILS # (AUTO) 0.1 10^3/uL (0.0-0.1); BASOPHILS % (AUTO) 0.6 %; EOSINOPHILS # (AUTO) 0.1 10^3/uL (0.0-0.7); EOSINOPHILS % (AUTO) 1.3 %; HGB - HEMOGLOBIN 16.2 g/dL (14.0-18.0); LYMPHOCYTES % (AUTO) 34.5 %; MEAN CORPUSCULAR HEMOGLOBIN 31.3 pg (27.0-31.0); MEAN CORPUSCULAR VOLUME 86.9 fL (80.0-94.0); MEAN PLATELET VOLUME 11.2 fL (7.4-11.4); MONOCYTES # (AUTO) 0.5 10^3/uL (0.0-1.0); MONOCYTES % (AUTO) 6.1 %; NEUTROPHILS # (AUTO) 4.9 10^3/uL (1.5-6.6); NEUTROPHILS % (AUTO) 56.5 %; PLT - PLATELET COUNT 269 10^3/uL (130-450); RED BLOOD COUNT 5.18 10^6/uL (4.70-6.10); RED CELL DISTRIBUTION WIDTH 12.1 % (12.0-15.0); WHITE BLOOD COUNT 8.7 x10^3/uL (4.8-10.8)
[2022-05-23 08:21] LABS: ALBUMIN 4.5 g/dL (3.2-5.5); ALBUMIN/GLOBULIN RATIO 1.6 (1.0-2.2); BILIRUBIN,TOTAL 0.2 mg/dL (0.2-1.0); CALCIUM 9.4 mg/dL (8.5-10.3); CREATININE 0.7 mg/dL (0.6-1.2); POTASSIUM 4.2 mmol/L (3.5-5.0); TOTAL PROTEIN 7.3 g/dL (6.7-8.2)
[2022-05-23] MEDS ORDERED: ONDANSETRON 4 MG/2 ML VIAL IVP STA (08:27)
[2022-05-23] MEDS ORDERED: HYDROmorphone 1 MG/ML CARPUJECT IVP STA ×2 (08:27→09:23)
[2022-05-23] MEDS ORDERED: SODIUM CHLORIDE 0.9% 1,000 ML IV STA (08:27)
--- NOTE | 2022-05-23 08:30 | ED Physician Documentation ---
PD HPI ABD PAIN - Stated complaint Stated Complaint: ABD PX - Chief complaint Chief Complaint: Abd Pain - History obtained from History obtained from: Patient - Additional information Additional information: The patient comes to the emergency department for chief complaint of upper abdominal pain that started around 430 this morning. He states it woke him up from sleep. The patient has a history of recurrent pancreatitis which has been attributed to various things, including alcohol use, diet, and medications. The patient states he is scheduled to see a GI specialist tomorrow about this but th at his pain ramped up this morning and became unbearable. He states he also vomited once at home while brushing his teeth but then again several times since he has been here. He rates his pain a 9 out of 10. The patient states he has had several bouts of this previously over the last 2 years, and has been seen many times, both in the emergency department and in outpatient setting. An MRCP this past spring showed a normal biliary ductal system. He states he did used to drink quite a bit more than he drinks now, but that he is only had alcohol once in the last 3 months and that was on Thanksgiving. No history of gallbladder disease. No other complaints at this time. Review of Systems Ten Systems: 10 systems reviewed and negative Constitutional: reports: Reviewed and negative Eyes: reports: Reviewed and negative Ears: reports: Reviewed and negative Nose: reports: Reviewed and negative Throat: reports: Reviewed and negative Cardiac: reports: Reviewed and negative Respiratory: reports: Reviewed and negative GI: reports: Abdominal Pain, Nausea, Vomiting : reports: Reviewed and negative Skin: reports: Reviewed and negative Musculoskeletal: reports: Reviewed and negative Neurologic: reports: Reviewed and negative Psychiatric: reports: Reviewed and negative Endocrine: reports: Reviewed and negative Immunocompromised: reports: Reviewed and negative PD PAST MEDICAL HISTORY - Past Medical History Cardiovascular: Hypertension, High cholesterol Respiratory: None Neuro: None Endocrine/Autoimmune: None GI: Pancreatitis (due to very elevated lipids. Has appt with oxidation operator in about 2 weeks. 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 - Present Medications Home Medications: Ambulatory Orders Medication Instructions Recorded Confirmed hydroCHLOROthiazide [Hydrodiuril] 12.5 mg PO DAILY #30 cap 05/05/21 09/28/21 [place]-3 Acid Ethyl Esters [Lovaza] 2 gm PO BID 30 Days #120 cap 05/26/21 09/28/21 gemfibroziL [Lopid] 600 mg PO BIDAC 30 Days #60 tablet 05/26/21 09/28/21 Hydrocodone/Acetaminophen 1 each PO Q6H PRN 5 Days #20 tablet 08/20/21 [Hydrocodone-Acetamin 7.5-300] gemfibroziL [Lopid] 600 mg PO BIDAC 30 Days #60 tablet 08/20/21 Cholestyramine [Questran] 4 gm PO BID 15 Days #30 packet 09/28/21 Morphine Ir [Ms Ir] 15 mg PO Q6H PRN #20 tablet 09/28/21 Naproxen 250 mg PO BID 10 Days #20 tablet 09/28/21 Ondansetron Odt [Zofran] 4 mg TL Q6H PRN #20 tablet 09/28/21 HYDROcod/ACETAM 5/325 [[place] 5/325] 1 - 2 tablet PO Q4HR PRN #14 tablet 05/23/22 Ondansetron Odt [Zofran] 4 mg TL Q6H PRN #10 tablet 05/23/22 - Allergies Allergies/Adverse Reactions: Allergies Allergy/AdvReac Type Severity Reaction Status Date / Time Penicillins Allergy Unknown Verified 05/23/22 07:27 - Social History Does the pt smoke?: Yes Smoking Status: Current every day smoker Does the pt drink ETOH?: Yes Does the pt have substance abuse?: No - Immunizations Immunizations are current?: Yes - POLST Patient has POLST: No POLST Status: Full Code PD ED PE NORMAL - Vitals Vital signs reviewed: Yes - General General: Alert and oriented X 3, Well developed/nourished, Other (The patient appears in pain, clutching his abdomen, groaning, and writhing. Otherwise in no distress.) - HEENT HEENT: Atraumatic, PERRL, EOMI, Moist mucous membranes - Neck Neck: Supple, no meningeal sign - Cardiac Cardiac: RRR, No murmur, Strong equal pulses - Respiratory Respiratory: No respiratory distress, Clear bilaterally - Abdomen Abdomen: Soft, Non distended, Other (Tenderness palpation across upper abdomen, most pronounced in the epigastric region. No rebound or guarding) - Derm Derm: Normal color, Warm and dry, No rash - Extremities Extremities: No deformity, No edema - Neuro Neuro: Alert and oriented X 3 - Psych Psych: Normal mood, Normal affect Results - Vitals Vitals: Vital Signs - 24 hr 05/23/22 05/23/22 07:20 10:10 Temperature 35.5 C L Heart Rate 80 84 Respiratory 16 16 Rate Blood Pressure 138/97 H 124/87 H O2 Saturation 99 99 Oxygen O2 Source Room air - Labs Labs: Laboratory Tests 05/23/22 05/23/22 05/23/22 07:39 07:39 08:42 WBC 8.7 RBC 5.18 Hgb 16.2 Hct 45.0 MCV 86.9 MCH 31.3 H MCHC 36.0 RDW 12.1 Plt Count 269 MPV 11.2 Neut # (Auto) 4.9 Lymph # (Auto) 3.0 [place] # (Auto) 0.5 Eos # (Auto) 0.1 Baso # (Auto) 0.1 Absolute Nucleated RBC 0.00 Nucleated RBC % 0.0 Sodium 133 L Potassium 4.2 Chloride 102 Carbon Dioxide 18 L Anion Gap 13.0 BUN 19 Creatinine 0.7 Estimated GFR (MDRD) 124 Glucose 186 H Calcium 9.4 Total Bilirubin 0.2 AST 32 ALT 45 Alkaline Phosphatase 71 Total Protein 7.3 Albumin 4.5 Globulin 2.8 Albumin/Globulin Ratio 1.6 Lipase 1368 H Urine Color YELLOW Urine Clarity CLEAR Urine pH 5.5 Ur Specific [place] >=1.030 H Urine Protein NEGATIVE Urine Glucose (UA) NEGATIVE Urine Ketones NEGATIVE Urine Occult Blood NEGATIVE Urine Nitrite NEGATIVE Urine Bilirubin NEGATIVE Urine Urobilinogen 0.2 (NORMAL) Ur Leukocyte Esterase NEGATIVE Ur Microscopic Review NOT INDICATED Urine Culture Comments NOT INDICATED PD MEDICAL DECISION MAKING - ED course Complexity details: reviewed results, re-evaluated patient, considered differential, d/w patient ED course: The patient was worked up with laboratory studies, which showed a normal white blood cell count and a lipase of 1300. He was treated symptomatically with IV fluids, Dilaudid, and Zofran. The patient reported feeling better after the initial dose of Dilaudid, but stated he was still in quite a bit of pain. His nausea was much better. The patient was given 2 more milligrams of Dilaudid IV as well as 2 tablets of hydrocodone p.o. He reported feeling quite a bit better after this and felt ready to go home. Given that the patient has a long awaited GI appointment tomorrow for his recurrent pancreatitis, and given that he is able to tolerate p.o. in the emergency department, I felt this was reasonable. The patient has self treated symptomatically at home with clear liquids, antiemetics and analgesics in the past when he has had pancreatitis and feels he is able to do this again. He understands that if he cannot hold his medications down or if the pain is unable to be controlled with the pain regimen, or if he develops jaundice or fevers, he should return to the emergency department. Otherwise, he has been given instructions has to symptomatic treatment at home and is advised to be sure he makes his GI appointment tomorrow. We have discussed the usual indications for return. Departure - Departure Disposition: 01 Home, Self Care Clinical Impression: Pancreatitis Qualifiers: Chronicity: acute Pancreatitis type: unspecified pancreatitis type Acute pancreatitis complication: unspecified Qualified Code(s): K85.90 - Acute pancreatitis without necrosis or infection, unspecified Condition: Stable Instructions: ED Pancreatitis Prescriptions: HYDROcod/ACETAM 5/325 [Adel 5/325] 1 - 2 tablet PO Q4HR PRN #14 tablet PRN Reason: Pain Ondansetron Odt [Zofran] 4 mg TL Q6H PRN #10 tablet PRN Reason: Nausea / Vomiting Comments: Your labs show evidence of pancreatitis today. Your pancreatic enzymes, specifically the lipase, is elevated at 1360. Your white blood cell count is normal and all your liver labs are normal, as well. You do not have a fever today. These factors make the likelihood of a more serious and complicated course of pancreatitis less likely. Given that you have been able to tolerate oral fluids and medication here, and given that you are feeling noticeably better, we will like to go home and manage the symptoms, particularly since you have a long awaited gastroenterology appointment tomorrow. Prescriptions for pain and nausea medication have been electronically transmitted to [facility] pharmacy in [place]. You have been given copies of your labs to take with you to your gastroenterology appointment, as well. Please be sure to drink plenty of fluids, but do avoid eating until you are feeling noticeably better. Generally, you should be on a clear liquid diet for 2 to 3 days after a diagnosis of pancreatitis. If you find that your pain is unable to be controlled with the pain medication, or if you are too nauseated despite the nausea medicine to keep your pain medicine down, then please return to the emergency department. Discharge Date/Time: 05/23/22 10:52
[2022-05-23 08:49] LABS: BILIRUBIN,URINE NEGATIVE (NEGATIVE); GLUCOSE, URINE (UA) NEGATIVE (NEGATIVE); KETONES,URINE (UA) NEGATIVE (NEGATIVE); LEUKOCYTE ESTERASE, URINE NEGATIVE (NEGATIVE); NITRITE,URINE NEGATIVE (NEGATIVE); OCCULT BLOOD,URINE NEGATIVE (NEGATIVE); PH,URINE 5.5 PH (5.0-7.5); PROTEIN,URINE NEGATIVE (NEGATIVE); UROBILINOGEN,URINE 0.2 (NORMAL) E.U./dL (NORMAL)
[2022-05-23 08:55] LABS: CLARITY,URINE CLEAR (CLEAR)
[2022-05-23] MEDS ORDERED: HYDROcod/ACETAM 5/325 MG TABLET PO STA (09:23)
[2022-05-23 10:11] VITALS: BP 124/87
== END 2022-05-23 10:52 | disposition home or self-care (01) ==
LOC: ED 07:10
DX: K85.90 Acute pancreatitis without necrosis or infection, unspecified (principal); F17.200 Nicotine dependence, unspecified, uncomplicated
CPT/HCPCS: 36415; 80053; 81003; 83690; 85025; 96374; 96376; 99283; 99284; A9270; J1170; 81001; 87086

== ENCOUNTER 2022-07-26 07:11 | Emergency (ER) | payer OTHER ==
[2022-07-26 07:31] LABS: BASOPHILS # (AUTO) 0.1 10^3/uL (0.0-0.1); BASOPHILS % (AUTO) 0.5 %; EOSINOPHILS # (AUTO) 0.2 10^3/uL (0.0-0.7); EOSINOPHILS % (AUTO) 1.9 %; HCT - HEMATOCRIT 44.5 % (42.0-52.0); HGB - HEMOGLOBIN 15.9 g/dL (14.0-18.0); LYMPHOCYTES # (AUTO) 3.5 10^3/uL (1.5-3.5); LYMPHOCYTES % (AUTO) 38.6 %; MEAN CORPUSCULAR HGB CONC 35.7 g/dL (32.0-36.0); MEAN CORPUSCULAR VOLUME 86.7 fL (80.0-94.0); MEAN PLATELET VOLUME 11.4 fL (7.4-11.4); MONOCYTES # (AUTO) 0.5 10^3/uL (0.0-1.0); MONOCYTES % (AUTO) 5.5 %; NEUTROPHILS # (AUTO) 4.8 10^3/uL (1.5-6.6); PLT - PLATELET COUNT 249 10^3/uL (130-450); RED BLOOD COUNT 5.13 10^6/uL (4.70-6.10); RED CELL DISTRIBUTION WIDTH 12.1 % (12.0-15.0); WHITE BLOOD COUNT 9.1 x10^3/uL (4.8-10.8)
[2022-07-26] MEDS ORDERED: SODIUM CHLORIDE 0.9% 1,000 ML IV STA ×2 (07:40)
[2022-07-26] MEDS ORDERED: HYDROmorphone 1 MG/ML CARPUJECT IVP STA ×3 (07:41→10:07)
[2022-07-26] MEDS ORDERED: ONDANSETRON 4 MG/2 ML VIAL IVP STA (07:41)
[2022-07-26 08:02] LABS: ALBUMIN 4.4 g/dL (3.2-5.5); ALBUMIN/GLOBULIN RATIO 1.3 (1.0-2.2); BILIRUBIN,TOTAL 0.7 mg/dL (0.2-1.0); CALCIUM 10.2 mg/dL (8.5-10.3); CREATININE 0.6 mg/dL (0.6-1.2); POTASSIUM 3.7 mmol/L (3.5-5.0); TOTAL PROTEIN 7.8 g/dL (6.7-8.2)
--- NOTE | 2022-07-26 08:18 | ED Physician Documentation ---
PD HPI ABD PAIN - Stated complaint Stated Complaint: ABD PX - Chief complaint Chief Complaint: Abd Pain - History obtained from History obtained from: Patient - History of Present Illness Pain level max: 8 Pain level now: 8 Quality: Aching, Pain Location: Epigastric Associated symptoms: No: Melena, Hematochezia Similar symptoms before: Diagnosis (pancreatitis) - Additional information Additional information: Patient is a 42-year-old male who presents to the emergency department with epigastric abdominal pain. This started about 3 hours prior to arrival. History of recurrent pancreatitis in the past. He states he does not drink alcohol. He states that in the past this has been due to elevated triglyceride levels. He states he is scheduled to see a printed circuit board layout designer at the [facility] in August. Has had nausea but no vomiting. No fevers. No chills. No diarrhea. No constipation. 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 - Present Medications Home Medications: Ambulatory Orders Medication Instructions Recorded Confirmed hydroCHLOROthiazide [Hydrodiuril] 12.5 mg PO DAILY #30 cap 05/05/21 09/28/21 [place]-3 Acid Ethyl Esters [Lovaza] 2 gm PO BID 30 Days #120 cap 05/26/21 09/28/21 gemfibroziL [Lopid] 600 mg PO BIDAC 30 Days #60 tablet 05/26/21 09/28/21 Hydrocodone/Acetaminophen 1 each PO Q6H PRN 5 Days #20 tablet 08/20/21 [Hydrocodone-Acetamin 7.5-300] gemfibroziL [Lopid] 600 mg PO BIDAC 30 Days #60 tablet 08/20/21 Cholestyramine [Questran] 4 gm PO BID 15 Days #30 packet 09/28/21 Morphine Ir [Ms Ir] 15 mg PO Q6H PRN #20 tablet 09/28/21 Naproxen 250 mg PO BID 10 Days #20 tablet 09/28/21 Ondansetron Odt [Zofran] 4 mg TL Q6H PRN #20 tablet 09/28/21 HYDROcod/ACETAM 5/325 [[place] 5/325] 1 - 2 tablet PO Q4HR PRN #14 tablet 05/23/22 Ondansetron Odt [Zofran] 4 mg TL Q6H PRN #10 tablet 05/23/22 Ondansetron Odt [Zofran] 4 mg TL Q6H PRN #10 tablet 07/26/22 Oxycodone HCl/Acetaminophen 1 - 2 each PO Q6H PRN #14 tablet 07/26/22 [Percocet 5-325 mg Tablet] MDD 6 tabs - Allergies Allergies/Adverse Reactions: Allergies Allergy/AdvReac Type Severity Reaction Status Date / Time Penicillins Allergy Unknown Verified 07/26/22 07:17 - Social History Does the pt smoke?: Yes Smoking Status: Current every day smoker Does the pt drink ETOH?: Yes Does the pt have substance abuse?: No - Immunizations Immunizations are current?: Yes - POLST Patient has POLST: No POLST Status: Full Code PD ED PE NORMAL - Vitals Vital signs reviewed: Yes - General General: Alert and oriented X 3, No acute distress - HEENT HEENT: PERRL - Cardiac Cardiac: RRR, Strong equal pulses - Respiratory Respiratory: No respiratory distress, Clear bilaterally - Abdomen Abdomen: Soft, Non distended, Other (Tender to palpation epigastric without peritoneal signs) - Back Back: No CVA TTP, No spinal TTP - Derm Derm: Warm and dry - Extremities Extremities: No edema - Neuro Neuro: Alert and oriented X 3 - Psych Psych: Normal mood, Normal affect Results - Vitals Vitals: Vital Signs - 24 hr 07/26/22 07/26/22 07/26/22 07:14 08:20 10:00 Temperature 36 C L Heart Rate 100 73 103 H Respiratory 20 15 15 Rate Blood Pressure 177/121 H 160/106 H 149/102 H O2 Saturation 100 96 98 Oxygen O2 Source Room air - Labs Labs: Laboratory Tests 07/26/22 07/26/22 07:23 07:23 WBC 9.1 RBC 5.13 Hgb 15.9 Hct 44.5 MCV 86.7 MCH 31.0 MCHC 35.7 RDW 12.1 Plt Count 249 MPV 11.4 Neut # (Auto) 4.8 Lymph # (Auto) 3.5 [place] # (Auto) 0.5 Eos # (Auto) 0.2 Baso # (Auto) 0.1 Absolute Nucleated RBC 0.00 Nucleated RBC % 0.0 Sodium 137 Potassium 3.7 Chloride 103 Carbon Dioxide 23 Anion Gap 11.0 BUN 18 Creatinine 0.6 Estimated GFR (MDRD) 147 Glucose 192 H Calcium 10.2 Total Bilirubin 0.7 AST 22 ALT 38 Alkaline Phosphatase 69 Total Protein 7.8 Albumin 4.4 Globulin 3.4 Albumin/Globulin Ratio 1.3 Lipase 1720 H PD Medical Decision Making - ED course Complexity details: reviewed results, re-evaluated patient, considered differential, d/w patient ED course: 42-year-old male presents to the emergency department with pancreatitis. This is similar to his prior presentations. CBC is normal. ER abdominal panel is normal other than an elevated blood glucose at 192 and an elevated lipase at 1720. He was given IV fluids, Dilaudid IV. Pain well controlled. Patient refuses admission to the hospital. Will place on pain medication for home and have him follow-up with his doctor for further care. Patient is well-appearing, nontoxic. Afebrile. No evidence of infection. No indication for CT scan. Patient counseled regarding signs and symptoms for which I believe and urgent re-evaluation would be necessary. Patient with good understanding of and agreement to plan and is comfortable going home at this time This document was made in part using voice recognition software. While efforts are made to proofread this document, sound alike and grammatical errors may occur. Departure - Departure Disposition: 01 Home, Self Care Clinical Impression: Pancreatitis Qualifiers: Chronicity: acute Pancreatitis type: unspecified pancreatitis type Acute pancreatitis complication: no infection or necrosis Qualified Code(s): K85.90 - Acute pancreatitis without necrosis or infection, unspecified Condition: Good Instructions: ED Pancreatitis Follow-Up: Your,doctor in 1 week [Other] Prescriptions: Oxycodone HCl/Acetaminophen [Percocet 5-325 mg Tablet] 1 - 2 each PO Q6H PRN #14 tablet MDD 6 tabs PRN Reason: pain Ondansetron Odt [Zofran] 4 mg TL Q6H PRN #10 tablet PRN Reason: Nausea / Vomiting Comments: Please follow-up with your doctor for further care. Drink plenty of fluids. I would recommend sticking to a liquid diet for the next 24 hours. Pain medication were sent to the pharmacy for you. Please follow-up with GI as scheduled. I am prescribing a short course of narcotic pain medication for you. These are potentially dangerous and addictive medications that should be used carefully. These medications may constipate you. Take an [id number] stool softener (docusate) twice daily with plenty of water while taking these medications. If you go 24 hours without a bowel movement, take [id number] miralax, per package instructions. Do not drink or drive while taking these medications. If you received narcotic or sedating medications while in the emergency department, do not drive for 24 hours. Store this medication in a safe, secure place and out of reach of children. It is a violation of federal law to give or sell this medication to another person or to use in a manner other than prescribed. The ED will not refill narcotic prescriptions, including prescriptions lost or stolen. To dispose of unwanted medications: 1. [facility] at [address] in [place] has a medication drop box. They accept prescription medications (in pill form) Friday through Friday 9:00 a.m. to 5:00 p.m. 2. The [facility] [employer] accepts prescription medications (in pill form only) for disposal year round. Call for more information. 3. Contact the [facility] for the next [facility] sponsored prescription d rug collection event. , [phone], or [phone]; Discharge Date/Time: 07/26/22 10:34
[2022-07-26] MEDS ORDERED: oxyCODONE 5 MG TABLET PO STA (09:03)
[2022-07-26 10:01] VITALS: BP 149/102
== END 2022-07-26 10:34 | disposition home or self-care (01) ==
LOC: ED 07:11
DX: K85.90 Acute pancreatitis without necrosis or infection, unspecified (principal); F17.200 Nicotine dependence, unspecified, uncomplicated
CPT/HCPCS: 36415; 80053; 83690; 85025; 96374; 96375; 96376; 99283; 99284; A9270; J1170

== ENCOUNTER 2022-10-31 06:59 | Outpatient (CLI) | payer OTHER ==
--- NOTE | 2022-10-31 13:07 | MRI Report ---
PROCEDURE: CERVICAL SPINE WO INDICATIONS: BRACHIAL PLEXUS TECHNIQUE: Noncontrast sagittal T1 spin echo and T2 fast spin echo, sagittal STIR, foraminal oblique sagittal T2 fast spin echo, and axial gradient echo or T2 fast spin echo through the cervical spine. COMPARISON: None. FINDINGS: Image quality: Excellent. Alignment and Curvature: There is trace retrolisthesis of C3 on C4. Bone Marrow: Marrow demonstrates normal overall signal. Spinal Cord: Visualized spinal cord has normal size and signal. No cerebellar tonsillar herniation. Paraspinous Soft Tissues: No paravertebral masses. Prevertebral soft tissues are normal in thicknes s. Discs Multilevel minimal to mild disc desiccation most severe at C5-6. C2-C3: No disc bulge, spinal stenosis or foraminal narrowing. C3-C4: Mild disc bulge with effacement of the anterior thecal sac. Minimal right foraminal narrowin g. C4-C5: Mild disc bulge with effacement anterior thecal sac. No foraminal narrowing. C5-C6: Mild disc bulge with asymmetric right posterior lateral prominence. There is mild spinal sten osis as well as prominent compromise of the right lateral recess. Minimal right foraminal narrowing. C6-C7: No disc bulge, spinal stenosis or foraminal narrowing. C7-T1: No disc bulge, spinal stenosis or foraminal narrowing. IMPRESSION: Mild disc bulge with right posterior lateral prominence causing compromise of the right lateral reces s at C5-6. Reviewed by: Danyelle Julian MD on 10/31/2022 1:05 PM PDT Approved by: Danyelle Julian MD on 10/31/2022 1:05 PM PDT Station ID: [id number]
== END 2022-10-31 07:00 | disposition home or self-care (01) ==
LOC: DI 06:59
PROVIDERS: ATTEND General Practice
DX: M50.31 Other cervical disc degeneration, high cervical region (principal); M48.02 Spinal stenosis, cervical region

== ENCOUNTER 2022-12-05 14:49 | Emergency (ER) | payer OTHER ==
[2022-12-05 15:31] LABS: BASOPHILS # (AUTO) 0.1 10^3/uL (0.0-0.1); BASOPHILS % (AUTO) 0.5 %; EOSINOPHILS # (AUTO) 0.1 10^3/uL (0.0-0.7); EOSINOPHILS % (AUTO) 0.8 %; HCT - HEMATOCRIT 42.7 % (42.0-52.0); HGB - HEMOGLOBIN 15.4 g/dL (14.0-18.0); LYMPHOCYTES # (AUTO) 2.9 10^3/uL (1.5-3.5); LYMPHOCYTES % (AUTO) 25.8 %; MEAN CORPUSCULAR HEMOGLOBIN 30.9 pg (27.0-31.0); MEAN CORPUSCULAR HGB CONC 36.1 g/dL (32.0-36.0); MEAN CORPUSCULAR VOLUME 85.7 fL (80.0-94.0); MONOCYTES # (AUTO) 0.6 10^3/uL (0.0-1.0); MONOCYTES % (AUTO) 5.6 %; NEUTROPHILS # (AUTO) 7.4 10^3/uL (1.5-6.6); PLT - PLATELET COUNT 275 10^3/uL (130-450); RED BLOOD COUNT 4.98 10^6/uL (4.70-6.10); WHITE BLOOD COUNT 11.1 x10^3/uL (4.8-10.8)
[2022-12-05 15:52] LABS: ALBUMIN 4.4 g/dL (3.2-5.5); ALBUMIN/GLOBULIN RATIO 1.4 (1.0-2.2); BILIRUBIN,TOTAL 0.9 mg/dL (0.2-1.0); CALCIUM 9.3 mg/dL (8.5-10.3); CREATININE 0.8 mg/dL (0.6-1.2); POTASSIUM 3.8 mmol/L (3.5-5.0); TOTAL PROTEIN 7.5 g/dL (6.7-8.2)
[2022-12-05] MEDS ORDERED: SODIUM CHLORIDE 0.9% 1,000 ML IV STA (15:52)
[2022-12-05] MEDS ORDERED: HYDROmorphone 1 MG/ML CARPUJECT IVP STA (15:54)
--- NOTE | 2022-12-05 15:54 | ED Physician Documentation ---
PD HPI ABD PAIN - Stated complaint Stated Complaint: ABD PX - Chief complaint Chief Complaint: Abd Pain - History obtained from History obtained from: Patient - Additional information Additional information: 42-year-old gentleman with recurrent pancreatitis probably related to hypertriglyceridemia. History of remote appendectomy. Developed epigastric pain with mild radiation to the back starting last night. It is similar to prior episodes of pancreatitis. There is no nausea or change in his bowel movements. Prior imaging including MRCP last year demonstrating no issue with gallstones. PD PAST MEDICAL HISTORY - Past Medical History Cardiovascular: Hypertension, High cholesterol Respiratory: None Neuro: None Endocrine/Autoimmune: None GI: Pancreatitis : None HEENT: None Psych: None Musculoskeletal: None Derm: None Other Past Medical History: Hx or pancreatitis. 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 - Present Medications Home Medications: Ambulatory Orders Medication Instructions Recorded Confirmed gemfibroziL [Lopid] 600 mg PO BIDAC 30 Days #60 tablet 05/26/21 12/05/22 Lisinopril [Zestril] 20 mg PO DAILY 12/05/22 12/05/22 oxyCODONE [Roxicodone] 5 mg PO Q4-6H PRN #15 tablet 12/05/22 - Allergies Allergies/Adverse Reactions: Allergies Allergy/AdvReac Type Severity Reaction Status Date / Time Penicillins Allergy Unknown Verified 12/05/22 14:58 - Social History Does the pt smoke?: Yes Smoking Status: Current every day smoker Does the pt drink ETOH?: Yes Does the pt have substance abuse?: No - Immunizations Immunizations are current?: Yes - POLST Patient has POLST: No POLST Status: Full Code PD ED PE NORMAL - Vitals Vital signs reviewed: Yes - General General: Alert and oriented X 3, No acute distress - Abdomen Abdomen: Normal bowel sounds, Soft, Other (Mild epigastric tenderness without surgical signs) - Neuro Neuro: Alert and oriented X 3, Normal speech Results - Vitals Vitals: Vital Signs - 24 hr 12/05/22 12/05/22 12/05/22 14:52 15:47 16:16 Temperature 36.1 C L Heart Rate 105 H 87 87 Respiratory 18 20 16 Rate Blood Pressure 138/84 H 135/82 H 130/85 H O2 Saturation 98 98 96 12/05/22 16:58 Temperature Heart Rate 84 Respiratory 16 Rate Blood Pressure 132/83 H O2 Saturation 95 Oxygen O2 Source Room air - Labs Labs: Laboratory Tests 12/05/22 12/05/22 12/05/22 15:28 15:28 15:28 WBC 11.1 H RBC 4.98 Hgb 15.4 Hct 42.7 MCV 85.7 MCH 30.9 MCHC 36.1 H RDW 12.0 Plt Count 275 MPV 11.0 Neut # (Auto) 7.4 H Lymph # (Auto) 2.9 [place] # (Auto) 0.6 Eos # (Auto) 0.1 Baso # (Auto) 0.1 Absolute Nucleated RBC 0.00 Nucleated RBC % 0.0 Sodium 132 L Potassium 3.8 Chloride 100 L Carbon Dioxide 23 Anion Gap 9.0 BUN 15 Creatinine 0.8 Estimated GFR (MDRD) 106 Glucose 138 H Calcium 9.3 Total Bilirubin 0.9 AST 27 ALT 42 Alkaline Phosphatase 72 Total Protein 7.5 Albumin 4.4 Globulin 3.1 Albumin/Globulin Ratio 1.4 Triglycerides > 2000 H Cholesterol 372 H LDL Cholesterol Direct TNP LDL Cholesterol, Calc Not Reportable VLDL Cholesterol Not Reportable HDL Cholesterol TNP LDL/HDL Ratio Not Reportable dLDL/HDL Ratio TNP Cholesterol/HDL Ratio 13.8 Lipase 133 H Urine Color Urine Clarity Urine pH Ur Specific [place] Urine Protein Urine Glucose (UA) Urine Ketones Urine Occult Blood Urine Nitrite Urine Bilirubin Urine Urobilinogen Ur Leukocyte Esterase Ur Microscopic Review Urine Culture Comments 12/05/22 17:50 WBC RBC Hgb Hct MCV MCH MCHC RDW Plt Count MPV Neut # (Auto) Lymph # (Auto) [place] # (Auto) Eos # (Auto) Baso # (Auto) Absolute Nucleated RBC Nucleated RBC % Sodium Potassium Chloride Carbon Dioxide Anion Gap BUN Creatinine Estimated GFR (MDRD) Glucose Calcium Total Bilirubin AST ALT Alkaline Phosphatase Total Protein Albumin Globulin Albumin/Globulin Ratio Triglycerides Cholesterol LDL Cholesterol Direct LDL Cholesterol, Calc VLDL Cholesterol HDL Cholesterol LDL/HDL Ratio dLDL/HDL Ratio Cholesterol/HDL Ratio Lipase Urine Color YELLOW Urine Clarity CLEAR Urine pH 5.5 Ur Specific [place] >=1.030 H Urine Protein NEGATIVE Urine Glucose (UA) NEGATIVE Urine Ketones 15 H Urine Occult Blood NEGATIVE Urine Nitrite NEGATIVE Urine Bilirubin NEGATIVE Urine Urobilinogen 0.2 (NORMAL) Ur Leukocyte Esterase NEGATIVE Ur Microscopic Review NOT INDICATED Urine Culture Comments NOT INDICATED PD Medical Decision Making - ED course ED course: 42-year-old gentleman with recurrent pancreatitis related to hypertriglyceridemia with an exacerbation of same. CBC basically normal. CMP only notable for very modest elevation of lipase at 133. Lipid panel notable for triglycerides too high to calculate. Initially treated with 1 mg of Dilaudid IV without relief, subsequently a GI cocktail as gastritis was also on the differential without relief, subsequently 8 mg of morphine. 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 We discussed dietary restrictions given his hypertriglyceridemia. He was feeling much better after this and passed a p.o. challenge and requested discharge. I did clarify that in addition to the gemfibrozil he is also on atorvastatin. Departure - Departure Disposition: 01 Home, Self Care Clinical Impression: Hypertriglyceridemia Pancreatitis Qualifiers: Chronicity: acute Pancreatitis type: unspecified pancreatitis type Acute pancreatitis complication: no infection or necrosis Qualified Code(s): K85.90 - Acute pancreatitis without necrosis or infection, unspecified Condition: Good Record reviewed to determine appropriate education?: Yes Instructions: ED Pancreatitis Prescriptions: oxyCODONE [Roxicodone] 5 mg PO Q4-6H PRN #15 tablet PRN Reason: Pain Comments: I sent your prescriptions electronically to the [facility] pharmacy in [place]. Clear liquid diet for the next 24 hours, then a very healthy diet with fruits vegetables whole grains with limitation of meats cheese and fatty food. [place]. Return for new or worsening symptoms. I am prescribing a short course of narcotic pain medication for you. These are potentially dangerous and addictive medications that should be used carefully. These medications may constipate you. Take an rfmn-rlb-tqebvjd stool softener (docusate) twice daily with plenty of water while taking these medications. If you go 24 hours without a bowel movement, take zxut-pgn-opkheop miralax, per package instructions. Do not drink or drive while taking these medications. If you received narcotic or sedating medications while in the emergency department, do not drive for 24 hours. Store this medication in a safe, secure place and out of reach of children. It is a violation of federal law to give or sell this medication to another person or to use in a manner other than prescribed. The ED will not refill narcotic prescriptions, including prescriptions lost or stolen. To dispose of unwanted medications: 1. [facility] a [facility] box for medication in pill form only (no liquids) 8:00 am to 4:30 p.m. Friday-Friday in the lobby of the [facility], [address] Empty pills into ziplock bag before disposal. Call [phone] for information. 2.[employer] is a free service available to all [facility] residents. Go to [email or web address] Note that many narcotic pain relievers also contain Tylenol/acetaminophen. Please ensure that your total dose of acetaminophen from all sources does not exceed 3 g (3000 mg) per day.
[2022-12-05 16:30] LABS: CHOL/HDL RATIO 13.8 (<5.0); CHOLESTEROL 372 mg/dL
[2022-12-05] MEDS ORDERED: LIDOCAINE VISCOUS 2% 15 ML ORAL SYRINGE MM STA (16:37)
[2022-12-05] MEDS ORDERED: MAG HYDROX/AL HYDROX/SIMETH 30 ML UDC PO STA (16:37)
[2022-12-05 16:41] LABS: TRIGLYCERIDES > 2000 mg/dL
[2022-12-05] MEDS ORDERED: MORPHINE 10 MG/ML VIAL IVP STA (17:15)
[2022-12-05 17:59] LABS: BILIRUBIN,URINE NEGATIVE (NEGATIVE); GLUCOSE, URINE (UA) NEGATIVE (NEGATIVE); KETONES,URINE (UA) 15 mg/dL (NEGATIVE); LEUKOCYTE ESTERASE, URINE NEGATIVE (NEGATIVE); NITRITE,URINE NEGATIVE (NEGATIVE); OCCULT BLOOD,URINE NEGATIVE (NEGATIVE); PH,URINE 5.5 PH (5.0-7.5); PROTEIN,URINE NEGATIVE (NEGATIVE); UROBILINOGEN,URINE 0.2 (NORMAL) E.U./dL (NORMAL)
[2022-12-05 18:00] LABS: CLARITY,URINE CLEAR (CLEAR)
[2022-12-05] MEDS ORDERED: KETOROLAC 15 MG/ML VIAL IVP STA (18:11)
[2022-12-05] MEDS ORDERED: MORPHINE 2 MG/ML CARPUJECT IVP STA (18:12)
[2022-12-05 18:26] VITALS: BP 133/87
== END 2022-12-05 18:24 | disposition home or self-care (01) ==
LOC: ED 14:49
DX: K85.90 Acute pancreatitis without necrosis or infection, unspecified (principal); E78.1 Pure hyperglyceridemia; F17.200 Nicotine dependence, unspecified, uncomplicated
CPT/HCPCS: 36415; 80053; 80061; 81003; 83690; 85025; 96374; 96375; 96376; 99283; 99284; A9270; J1170; 81001; 83721; 87086

== ENCOUNTER 2023-01-03 14:44 | Outpatient (CLI) | payer OTHER ==
--- NOTE | 2023-01-03 15:29 | Sleep Patient Instructions ---
Sleep Center Visit Summary - Patient Visit Information Reason for Visit: Initial consult for evaluation of sleep disordered breathing and other sleep issues. - Patient Instructions Instructions Attached: Sleep Study, Sleep Clinic Visit Additional Instructions: You will be completing a sleep study, either an in-lab polysomnography (PSG) or home sleep study (HST). You will follow-up in the sleep care office after the sleep study is completed to hear the results and talk about therapy, if needed. You will be called by our office staff to schedule this appointment, but you may contact us with any questions. - Clinic Information Contact: [facility] [address] [place] [address] [email or web address] T: [phone]
--- NOTE | 2023-01-03 15:40 | SLEEP CARE CONSULTATION ---
Information from patient questionnaire entered by Cassidy Gomez. I have reviewed and concur with the information entered by Cassidy Gomez. This document represents the service I personally performed and the decisions made by me, Marina Carter ARNP. History of Present Illness Service Date and Time: 01/03/2023 1444 Reason for Visit: New patient Chief Complaint: reports: Unrefreshed sleep, Snoring, Excessive daytime sleepiness, Observed pauses in breathing, Fatigue, Frequent awakenings at night, Other (UPDATE SUPPIES ) Date of Onset: 8YRS Usual bedtime: 2100 Time it takes to fall asleep: DEPENDS Snores at night: Yes Observed to quit breathing while asleep: Yes Sleeps alone due to snoring: Yes Number of times waking at night: 6-7 Reasons for waking at night: reports: Snoring, Gasping for air, Bathroom, Other (UNKNOWN ). denies: Choking Toss, Turn, or Twitch while sleeping: Yes Recalls having dreams: No Usually gets out of bed at: 0500 OR EARLIER Feels refreshed in the morning: No Morning headache: Yes (2 times a week, gone quickly in morning, is taking analgesics) Sleepy or fatigued during the day: Yes Ever fallen asleep while driving: No Takes day naps: No Dreams during day naps: No Prior sleep studies: Yes Year and Where: at [facility] Additional HPI information: I had the pleasure of seeing NICOLAS BELL today regarding the possibility of him having a sleep disorder. His current complaints are excessive daytime sleepiness, fatigue, frequent night awakenings, observed pauses in breathing, snoring, unrefreshed sleep and update of supplies. He states he was diagnosed with sleep apnea and was told his was in the severe range. He was started on a CPAP and used it for about 6 months and was then transferred (via [place]) to [place]. He has not been able to use his CPAP because when he moved to [place] it was broken in the move and he could not get a replacement. 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 He comes back to try to get restarted on therapy for his sleep apnea. He states he is very tired and wakes up so much at night that he does not sleep well. He snores loudly and is told that he stops breathing at night. 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 Patient is and lives in [place]. Have you smoked in the past 12 months: Yes Cigarettes per day (20/pack): 15 Quit date: 25 Alcohol use: Yes Alcohol amount and frequency: 6 PACK 1-2 X WEEK Caffeine use: Yes Caffeine amount and frequency: 2-3 CUPS EVERYDAY Family History Family history of sleep disordered breathing: Yes Family Hx Sleep Apnea: Father: Snoring, Sleep apnea - Treated, Grandparent: Snoring, Sleep apnea - Treated Allergies and Home Medications Known drug allergies: Yes (penicillins) Drug allergies reviewed: Yes Home medication list reviewed: Yes (see updated list in EMR) Allergy and home medication list: Allergies Penicillins Allergy (Verified 01/02/23 15:39) Unknown Review of Systems Cardiovascular: reports: high blood pressure Respiratory: reports: chronic cough Gastrointestinal: reports: heartburn, other (PANCREATITIS) Neurological: reports: headaches Psychiatric: denies: anxiety, depression Ear/Nose/Throat: reports: wisdom teeth removed. denies: tonsillectomy Endocrine: reports: sluggishness Musculoskeletal: reports: joint pain, neck pain, back pain Physical Exam Vital signs obtained and entered by: CASSIDY Braga MA Blood Pressure: 120/72 (LEFT ARM) Cuff size: regular Heart Rate: 91 O2 Saturation: 98 Height: 6 ft Weight: 235 lb 6.4 oz Body Mass Index: 31.9 BMI Classification: Obese Neck circumference: 18.5 Mouth and throat: narrow oropharynx Soft palate: long Hard palate: normal Uvula: normal Uvula visualization: 25% Mallampati Class III Tongue: enlarged in size with teeth jo on lateral edges Tonsils: small Neck: normal w/o lymphadenopathy or thyromegaly Heart: regular rate and rhythm Lungs: clear bilaterally Impression and Plan 1. Suspected Obstructive Sleep Apnea-Hypopnea Syndrome, as previously diagnosed and as still suggested by a history of loud and irregular snoring, observed cessation of breath while asleep, gasping or choking in sleep, morning headache, frequent awakening during the night, unrefreshed sleep, cognitive impairment, and excessive daytime sleepiness. I recommend proceeding to polysomnography to confirm the diagnosis and to assess severity. If the patient has significant sleep disordered breathing, a manual CPAP titration study will also be performed to find the optimal treatment pressure. I informed the patient of what the sleep studies involve and after some discussion, obtained agreement to proceed. The pathophysiology of obstructive sleep apnea-hypopnea syndrome was discussed with the patient and health risks of cardiovascular and cerebrovascular disease if not treated. 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 Patient agreed to plan. * Schedule polysomnography. * Avoid long distance driving or driving when feeling sleepy. * Avoid alcohol, sedative and muscle relaxant around bedtime. * Attempt to lose weight. * Review instructions provided by trained office staff on how to prepare for the sleep study. * Return for follow-up after sleep study completed. Counseling Topics: Weight loss health impact Visit Type: In Office Time Spent with Patient (minutes): 30 Provider Statement: I spent 100% of the Face to Face Visit with the patient with greater than 50% spent counseling the patient and coordination of care.
[2023-01-03 15:45] VITALS: BP 120/72
== END 2023-01-03 14:45 | disposition home or self-care (01) ==
LOC: SC 14:44
PROVIDERS: ATTEND Nurse Practitioner Family
DX: R06.83 Snoring (principal); R06.81 Apnea, not elsewhere classified; G47.8 Other sleep disorders; R51.9 Headache, unspecified; R41.89 Other symptoms and signs involving cognitive functions and awareness; G47.10 Hypersomnia, unspecified; E66.9 Obesity, unspecified; Z68.31 Body mass index [BMI] 31.0-31.9, adult; Z87.891 Personal history of nicotine dependence
CPT/HCPCS: 99203; 99212

== ENCOUNTER 2023-02-01 20:00 | Outpatient (CLI) | payer OTHER | END 2023-02-01 20:01 | disposition home or self-care (01) | LOC: SC 20:00 | PROVIDERS: ATTEND Nurse Practitioner Family | DX: G47.33 Obstructive sleep apnea (adult) (pediatric) (principal); G47.61 Periodic limb movement disorder; Z68.31 Body mass index [BMI] 31.0-31.9, adult | CPT/HCPCS: 95810 ==

== ENCOUNTER 2023-02-18 18:50 | Emergency (ER) | payer OTHER ==
[2023-02-18 19:13] LABS: BASOPHILS % (AUTO) 0.5 %; EOSINOPHILS # (AUTO) 0.1 10^3/uL (0.0-0.7); EOSINOPHILS % (AUTO) 1.7 %; HCT - HEMATOCRIT 42.7 % (42.0-52.0); HGB - HEMOGLOBIN 15.6 g/dL (14.0-18.0); LYMPHOCYTES # (AUTO) 3.5 10^3/uL (1.5-3.5); LYMPHOCYTES % (AUTO) 46.1 %; MEAN CORPUSCULAR HEMOGLOBIN 32.4 pg (27.0-31.0); MEAN CORPUSCULAR HGB CONC 36.5 g/dL (32.0-36.0); MEAN CORPUSCULAR VOLUME 88.8 fL (80.0-94.0); MEAN PLATELET VOLUME 11.4 fL (7.4-11.4); MONOCYTES # (AUTO) 0.6 10^3/uL (0.0-1.0); NEUTROPHILS # (AUTO) 3.3 10^3/uL (1.5-6.6); NEUTROPHILS % (AUTO) 43.4 %; PLT - PLATELET COUNT 251 10^3/uL (130-450); RED BLOOD COUNT 4.81 10^6/uL (4.70-6.10); RED CELL DISTRIBUTION WIDTH 11.4 % (12.0-15.0); WHITE BLOOD COUNT 7.5 x10^3/uL (4.8-10.8)
[2023-02-18 19:27] LABS: ALBUMIN 4.7 g/dL (3.2-5.5)
[2023-02-18 19:45] LABS: ALBUMIN/GLOBULIN RATIO 1.7 (1.0-2.2); BILIRUBIN,TOTAL 0.3 mg/dL (0.2-1.0); CREATININE 0.7 mg/dL (0.6-1.2); POTASSIUM 4.1 mmol/L (3.5-5.0); TOTAL PROTEIN 6.9 g/dL (6.7-8.2)
[2023-02-18] MEDS ORDERED: ONDANSETRON 4 MG/2 ML VIAL IVP STA (20:05)
[2023-02-18] MEDS ORDERED: HYDROmorphone 1 MG/ML CARPUJECT IVP STA ×2 (20:05→20:37)
[2023-02-18] MEDS ORDERED: SODIUM CHLORIDE 0.9% 1,000 ML IV STA (20:05)
--- NOTE | 2023-02-18 20:17 | ED Physician Documentation ---
History of Present Illness - Stated complaint Stated Complaint: ABD PX - Chief complaint Chief Complaint: Abd Pain - Additonal information Additional information: 42-year-old male presents emergency department for evaluation of acute onset up per abdominal pain consistent with a history of pancreatitis. Symptoms began this morning when he was getting ready to return to [facility] from [place]. He does have a history of recurrent pancreatitis as well as history of hyperlipidemia. He has been seen and evaluated by gastroenterology. After this evaluation he was referred to endocrinology. Typically states that he is able to get the flare to improve by avoiding food and drinking clear liquids for several days. Patient took ibuprofen at home without relief of symptoms. He has some nausea but no vomiting. No fevers. No melena hematochezia.. Review of Systems Constitutional: denies: Fever Cardiac: reports: Reviewed and negative Respiratory: reports: Reviewed and negative GI: reports: Abdominal Pain, Nausea. 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 - Present Medications Home Medications: Ambulatory Orders Medication Instructions Recorded Confirmed gemfibroziL [Lopid] 600 mg PO BIDAC 30 Days #60 tablet 05/26/21 01/03/23 Lisinopril [Zestril] 20 mg PO DAILY 12/05/22 01/03/23 Acetaminophen [Tylenol] See Rx Instructions .ROUTE .COMPLEX 01/03/23 01/03/23 Atorvastatin Calcium See Rx Instructions .ROUTE .COMPLEX 01/03/23 01/03/23 Ibuprofen [Motrin] See Rx Instructions .ROUTE .COMPLEX 01/03/23 01/03/23 tiZANidine [Zanaflex] See Rx Instructions .ROUTE .COMPLEX 01/03/23 01/03/23 Ondansetron Odt [Zofran] 4 mg TL Q6H PRN #10 tablet 02/18/23 Oxycodone HCl/Acetaminophen 1 - 2 each PO Q6H PRN #20 tablet 02/18/23 [Percocet 5-325 mg Tablet] - Allergies Allergies/Adverse Reactions: Allergies Allergy/AdvReac Type Severity Reaction Status Date / Time Penicillins Allergy Unknown Verified 02/18/23 18:57 - Social History Does the pt smoke?: Yes Smoking Status: Current every day smoker Does the pt drink ETOH?: Yes Does the pt have substance abuse?: No - Immunizations Immunizations are current?: Yes - POLST Patient has POLST: No POLST Status: Full Code PD ED PE NORMAL - General General: Alert and oriented X 3. No: No acute distress (Appears uncomfortable and in pain) - HEENT HEENT: PERRL - Cardiac Cardiac: RRR, No murmur - Respiratory Respiratory: No respiratory distress, Clear bilaterally - Abdomen Abdomen: Normal bowel sounds, Soft. No: Non tender (Tenderness elicited with palpation of the epigastric region. No guarding or rebound. Nonperitoneal.) - Back Back: No CVA TTP - Derm Derm: Normal color, Warm and dry, No rash - Neuro Neuro: Alert and oriented X 3 Eye Opening: Spontaneous Motor: Obeys Commands Verbal: Oriented GCS Score: 15 Results - Vitals Vitals: Vital Signs - 24 hr 02/18/23 02/18/23 02/18/23 18:57 20:36 20:42 Temperature 37 C 37 C Heart Rate 90 72 89 Respiratory 18 20 20 Rate Blood Pressure 148/84 H 124/75 159/94 H O2 Saturation 98 100 98 Oxygen O2 Source Room air - Labs Labs: Laboratory Tests 02/18/23 02/18/23 19:09 19:09 WBC 7.5 RBC 4.81 Hgb 15.6 Hct 42.7 MCV 88.8 MCH 32.4 H MCHC 36.5 H RDW 11.4 L Plt Count 251 MPV 11.4 Neut # (Auto) 3.3 Lymph # (Auto) 3.5 [place] # (Auto) 0.6 Eos # (Auto) 0.1 Baso # (Auto) 0.0 Absolute Nucleated RBC 0.00 Nucleated RBC % 0.0 Sodium 133 L Potassium 4.1 Chloride 98 L Carbon Dioxide 26 Anion Gap 9.0 BUN 17 Creatinine 0.7 Estimated GFR (MDRD) 123 Glucose 237 H Calcium 9.0 Total Bilirubin 0.3 AST 20 ALT 25 Alkaline Phosphatase 90 Total Protein 6.9 Albumin 4.7 Globulin 2.6 Albumin/Globulin Ratio 1.7 Lipase 44 PD Medical Decision Making - ED course Complexity details: reviewed results, re-evaluated patient, considered differential, d/w patient ED course: 42-year-old male who has a history of recurrent pancreatitis presents to the emergency department for evaluation of 24 hours upper abdominal pain. Said some nausea but no vomiting. This pain is very reminiscent of pancreatitis in the past. He has been seen by GI at [facility]. On exam today he has upper abdominal pain though no guarding or rebound. Nonperitoneal exam. We did obtain CBC and electrolytes. Per my interpretation no leukocytosis. He has a normal hemoglobin. No worrisome electrolyte derangement though his blood glucose is 237. A lipase today is 44. Initially gave the patient some Zofran and Dilaudid. This improved the pain by about 50% and I reevaluated him and administered a second dose of Dilaudid And on reevaluation his pain is improved. A CT of the abdomen is pending. However assuming no acute worrisome abnormalities on the CT, given improved pain control and benign labs it would be appropriate to consider discharge home. Patient will be dispensed with a prepack for oxycodone overnight and a prescription for Percocet has been sent to the [facility] in [place]. Patient is advised to clear liquid diet for the next 24 to 72 hours. Will return to the ER if not markedly improved. Patient signed out to my nighttime colleague to follow-up on the CT results as above. I am prescribing a short course of short-acting opioid pain medication for this patient. 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 I have discussed that the opioids are for short term therapy only, and will not be refilled from the ED. Departure - Departure Clinical Impression: Upper abdominal pain, History of pancreatitis Condition: Stable Prescriptions: Oxycodone HCl/Acetaminophen [Percocet 5-325 mg Tablet] 1 - 2 each PO Q6H PRN #20 tablet PRN Reason: pain Ondansetron Odt [Zofran] 4 mg TL Q6H PRN #10 tablet PRN Reason: Nausea / Vomiting Comments: Sebastian you do have a history of pancreatitis. Today your labs in the emergency department are essentially normal including your lipase. The only real abnormality is an elevated blood sugar. I do advise you to follow this with your primary care doctor as it may be an indication that you are developing diabetes and may need treatment in the future. The CT of your abdomen did not show any worrisome findings. Over the next 48 to 72 hours recommend a clear liquid diet at home. I have sent a prescription for Percocet for pain control to the [facility] in [place]. If you find that you are having worsening pain despite this medication, have uncontrolled vomiting or high fevers then you do need to return immediately to the ER for repeat evaluation. I am prescribing a short course of narcotic pain medication for you. These are potentially dangerous and addictive medications that should be used carefully. These medications may constipate you. Take an sbnp-jge-hbwhipm stool softener (docusate) twice daily with plenty of water while taking these medications. If you go 24 hours without a bowel movement, take giex-npg-hfaagmh miralax, per package instructions. Do not drink or drive while taking these medications. If you received narcotic or sedating medications while in the emergency department, do not drive for 24 hours. Store this medication in a safe, secure place and out of reach of children. It is a violation of federal law to give or sell this medication to another person or to use in a manner other than prescribed. The ED will not refill narcotic prescriptions, including prescriptions lost or stolen. To dispose of unwanted medications: 1. [facility] at [address] in [place] has a medication drop box. They accept prescription medications (in pill form) Friday through Friday 9:00 a.m. to 5:00 p.m. 2. [facility] accepts prescription medications (in pill form only) for disposal year round. Call for more information. 3. Contact the [facility] for the next [facility] sponsored prescription drug collection event. , x7310, or x5434; Note that many narcotic pain relievers also contain Tylenol/acetaminophen. Please ensure that your total dose of acetaminophen from all sources does not exceed 3 g (3000 mg) per day. Forms: PCP List
[2023-02-18] MEDS ORDERED: oxyCODONE/ACET 5/325 Prepack 4 PO STA (21:49)
--- NOTE | 2023-02-18 22:50 | CT Report ---
PROCEDURE: ABDOMEN/PELVIS W INDICATIONS: upper abd pain; hx of pancreatitis CONTRAST: Opti 320 100ml TECHNIQUE: After the administration of intravenous contrast, 5 mm thick sections acquired from the diaphragms to the symphysis. 5 mm thick coronal and sagittal reformats were acquired. For radiation dose reducti on, the following was used: automated exposure control, adjustment of mA and/or kV according to mehdi ent size. Exam online and ready for interpretation on 02/18/2023 at 9:39 PM. COMPARISON: 08/14/2021 FINDINGS: Image quality: Excellent. Lung bases: Unremarkable. Heart: Heart is normal in size. ABDOMEN: Liver:There is hypoattenuation of the liver consistent with fatty infiltration. Gallbladder: Within normal limits without calcified gallstones. Biliary ducts: No biliary ductal dilatation. Pancreas:No peripancreatic fat stranding or fluid collections. No pancreatic duct dilatation. Spleen: Normal in size. Adrenal Glands: No adrenal nodules. Kidneys and Ureters: No hydronephrosis. Stomach and Bowel: Stomach, small bowel loops, and colon are normal in caliber and wall thickness. N o evidence of appendicitis. Peritoneum: No abnormal intraperitoneal fluid. No free air. Ventral Wall: No hernia. Abdominal Nodes: No retroperitoneal or mesenteric adenopathy by size criteria. Vessels: Aorta and inferior vena cava are normal in size. PELVIS: Pelvic Organs: Unremarkable. Bladder: Unremarkable. Pelvic Nodes: No enlarged lymph nodes. Miscellaneous: No inguinal hernias. Bones: Visualized osseous structures demonstrate no suspicious lesions. IMPRESSION: 1. No definite acute intra-abdominal abnormality. Specifically, no CT evidence of acute pancreatitis. Reviewed by: Arash Israel MD on 02/18/2023 10:49 PM PDT Approved by: Arash Israel MD on 02/18/2023 10:49 PM PDT Station ID: [id number]
--- NOTE | 2023-02-18 22:57 | ED Physician Documentation ---
ED Addendum - Addendum Addendum: 02/18/23 22:56 Patient was signed out to me awaiting CT scan. CT does not show any acute abnormalities. Patient is comfortable going home at this time. Patient counseled regarding signs and symptoms for which I believe and urgent re- evaluation would be necessary. Patient with good understanding of and agreement to plan and is comfortable going home at this time This document was made in part using voice recognition software. While efforts are made to proofread this document, sound alike and grammatical errors may occur. Departure - Departure Disposition: 01 Home, Self Care Clinical Impression: Upper abdominal pain, History of pancreatitis Condition: Stable Instructions: ED Abdominal Pain Unkn Cause Male Follow-Up: your,doctor in 1 week [Other] Prescriptions: Oxycodone HCl/Acetaminophen [Percocet 5-325 mg Tablet] 1 - 2 each PO Q6H PRN #20 tablet PRN Reason: pain Ondansetron Odt [Zofran] 4 mg TL Q6H PRN #10 tablet PRN Reason: Nausea / Vomiting Comments: Sebastian you do have a history of pancreatitis. Today your labs in the emergency department are essentially normal including your lipase. The only real abnormality is an elevated blood sugar. I do advise you to follow this with your primary care doctor as it may be an indication that you are developing diabetes and may need treatment in the future. The CT of your abdomen did not show any worrisome findings. Over the next 48 to 72 hours recommend a clear liquid diet at home. I have sent a prescription for Percocet for pain control to the [facility] in [place]. If you find that you are having worsening pain despite this medication, have uncontrolled vomiting or high fevers then you do need to return immediately to the ER for repeat evaluation. I am prescribing a short course of narcotic pain medication for you. These are potentially dangerous and addictive medications that should be used carefully. These medications may constipate you. Take an vler-qfh-rzvuueo stool softener (docusate) twice daily with plenty of water while taking these medications. If you go 24 hours without a bowel movement, take xxsc-siw-[id number] miralax, per package instructions. Do not drink or drive while taking these medications. If you received narcotic or sedating medications while in the emergency department, do not drive for 24 hours. Store this medication in a safe, secure place and out of reach of children. It is a violation of federal law to give or sell this medication to another person or to use in a manner other than prescribed. The ED will not refill narcotic prescriptions, including prescriptions lost or stolen. To dispose of unwanted medications: 1. [facility] at [address] in [place] has a medication drop box. They accept prescription medications (in pill form) Friday through Friday 9:00 a.m. to 5:00 p.m. 2. The [facility] [employer] accepts prescription medications (in pill form only) for disposal year round. Call for more information. 3. Contact the [facility] for the next [facility] sponsored prescription drug collection event. , [phone], or [phone]; Note that many narcotic pain relievers also contain Tylenol/acetaminophen. Please ensure that your total dose of acetaminophen from all sources does not exceed 3 g (3000 mg) per day. Forms: PCP List
[2023-02-18 23:13] VITALS: BP 114/83; O2SAT 100
[2023-02-19] MEDS ORDERED: IOVERSOL 320 100 ML VIAL IVP ONE (06:25)
== END 2023-02-18 23:09 | disposition home or self-care (01) ==
LOC: ED 18:50
DX: R10.10 Upper abdominal pain, unspecified (principal); I10 Essential (primary) hypertension; Z87.19 Personal history of other diseases of the digestive system; F17.200 Nicotine dependence, unspecified, uncomplicated
CPT/HCPCS: 36415; 74177; 80053; 83690; 85025; 96374; 96376; 99284; J1170; Q9967

== ENCOUNTER 2023-02-21 11:19 | Outpatient (CLI) | payer OTHER ==
--- NOTE | 2023-02-21 11:41 | Sleep Patient Instructions ---
Sleep Center Visit Summary - Patient Visit Information Reason for Visit: Sleep study follow-up - Patient Instructions Instructions Attached: CPAP, CPAP Dc Additional Instructions: You are being started on CPAP therapy with pressure setting at 4-15 cmH2O. You will need to call the sleep care office to set up your follow up once you have your APAP machine and we will schedule a visit to check compliance and response to therapy at that time. You may call the office with any concerns about pressure feeling too low or too much for adjustment, if needed. You should contact DME supplier for any questions or concerns about mask or equipment. Please call office to schedule a follow up appointment in the sleep care office one month after obtaining new device. - Clinic Information Contact: [facility] [address] [place] [address] [email or web address] T: [phone]
--- NOTE | 2023-02-21 11:45 | SLEEP CARE CONSULTATION ---
Information from patient questionnaire entered by Jessica Gomez. I have reviewed and concur with the information entered by Jessica Gomez. This document represents the service I personally performed and the decisions made by , Marina Carter ARNP. History of Present Illness Service Date and Time: 02/21/2023 1119 Accompanied by: daughter Initial [place] Sleepiness Scale score: 12 (01/03/23) Current [place] Sleepiness Scale score: 14 (02/21/23) Additional HPI information: NICOLAS BELL returns for follow up and results of the recently performed polysomnography. His sleep study showed severe obstructive sleep apnea with an average AHI of 43.2 and rj oxygen saturation of 75%. He had moderate PLMs and occasional tachycardia. I explained the pathophysiology behind obstructive sleep apnea. We then spent quite a bit of time discussing different treatment options. For mild obstructive sleep apnea, surgery and oral appliance are alternatives to nasal CPAP therapy but in moderate or severe cases, nasal CPAP is the most effective and reliable treatment. I reviewed the impact of weight changes on sleep apnea and strongly recommended losing weight. After some discussion, the patient opted to go with the nasal CPAP therapy. Nasal autoCPAP set at 4-15 cmH20 will be ordered with rationale explained. The patient was instructed to call the CPAP supplier to discuss any mechanical problem that may occur. If the mask given is uncomfortable or is difficult to keep on through the night even with adjustment, contact the CPAP supplier as many will replace with another mask style if notified before 30 days. If snoring or perceives is not getting enough air or too much air from the machine, notify this office. Patient counseled not drink alcohol less than 4 hours before bedtime as it can increase snoring and apnea. Patient was cautioned about risks of drowsy driving until sleepiness symptoms resolve. Sleep Study - Results Type of Sleep Study: Polysomnography (COMPLETED 02/01/23) Prior sleep studies: Yes Year and Where: 2016- at [facility] Polysomnography/Home Sleep Study results: IMPRESSION: The quality of the study is good. The patient had normal sleep efficiency. Despite significant sleep fragmentation, the sleep architecture was relatively normal. Respiratory monitoring showed severe obstructive sleep apnea-hypopnea (AHI = 43.2) associated with frequent arousals, oxyhemoglobin desaturation and moderate hypoxia (rj oxygen saturation of 75%). The respiratory events occurred predominantly during supine sleep (supine AHI = 68.6; non-supine = 29.74). Snore was loud in intensity. There was moderate periodic leg movement of sleep not contributing to the sleep fragmentation. Cardiac rhythm was normal sinus rhythm with occasional tachycardia (maximum heart rate was 118). No abnormal behavior (parasomnia) observed during the night. Allergies and Home Medications Known drug allergies: Yes (as listed) Drug allergies reviewed: Yes Home medication list reviewed: Yes (oxycodone prn abdominal pain; hx of pancreatitis) Allergy and home medication list: Allergies Penicillins Allergy (Verified 02/20/23 09:10) Unknown Review of Systems Review of systems same as previous: Yes (no changes) Physical Exam Vital signs obtained and entered by: JESSICA Braga MA Blood Pressure: 136/89 (LEFT ARM) Cuff size: regular Heart Rate: 96 O2 Saturation: 96 Height: 6 ft Weight: 233 lb 9.6 oz Body Mass Index: 31.6 BMI Classification: Obese Impression and Plan 1. Obstructive Sleep Apnea-Hypopnea Syndrome, severe, with lowest oxygen saturation of 75%. Obviously this is the cause of the patients symptoms of unrefreshed sleep, and excessive daytime sleepiness. Positive pressure therapy could benefit hypertension and diabetes. As mentioned above, the patient will be started on nasal autoCPAP therapy with pressure set at 4-15 cmH2O. Compliance guidelines also reviewed. A copy of compliance guidelines will be given for reference at check out. Because the apnea is more severe supine, I instructed to avoid sleeping supine using pillow positioning until able to start CPAP use. 2. Hypoxemia, moderate, with a rj oxygen saturation of 75% and 95 minutes spent under 90%. His baseline oxygen saturation was normal with an average oxygen saturation of 91%. 3. Periodic limb movement, moderate, that did not fragment patients sleep. Periodic limb movement of sleep (PLMS) is characterized by episodes of repetitive limb movements that occur during sleep and usually involve the lower limbs. The etiology is unknown. Caffeine can aggravate PLMS and should be avoided. Sleep hygiene methods can also improve sleep as well as lifestyle changes such as regular exercise. Patient was advised that no treatment is needed at this time. If symptoms increase, then further evaluation is indicated. 4. Tachycardia. Patient had occasional tachycardia during sleep study with maximum up to 118 bpm. He was advised to followup with primary doctor for further evaluation as needed. * Nasal auto CPAP therapy, pressure at 4-15 cm H2O. * Attempt to lose weight. * Avoid alcohol consumption near bedtime. * Avoid supine sleep until using CPAP. * The patient is again cautioned about driving until sleepiness completely resolves. * Return one month after CPAP obtained. I will assess response to therapy and compliance at that time. Counseling Topics: Weight loss health impact Prescriptions: Auto CPAP, Device supplies Follow up with Sleep Care in: other (one month after obtaining CPAP) Visit Type: In Office Time Spent with Patient (minutes): 20 Provider Statement: I spent 100% of the Face to Face Visit with the patient with greater than 50% spent counseling the patient and coordination of care.
[2023-02-21 11:46] VITALS: BP 136/89; O2SAT 96
== END 2023-02-21 11:20 | disposition home or self-care (01) ==
LOC: SC 11:19
PROVIDERS: ATTEND Nurse Practitioner Family
DX: G47.33 Obstructive sleep apnea (adult) (pediatric) (principal); R09.02 Hypoxemia; G47.61 Periodic limb movement disorder; R00.0 Tachycardia, unspecified; E66.9 Obesity, unspecified; Z68.31 Body mass index [BMI] 31.0-31.9, adult
CPT/HCPCS: 99212; 99213